=== PATIENT | male | born 1970 | race Two or more races ===

== ENCOUNTER → 2017-03-08 | Outpatient (CLI) | payer BC ==
[~2017-03-08] MED LIST: ASPI81CH43 PO; Atorvastatin Calcium PO; CLOP75TA28 PO; DIC10C PO; DOCU-137 PO; LIS20T PO; MET25T PO
[2017-03-08 12:57] LABS: Albumin 3.6 g/dL (3.4-5.0); BUN/Creatinine Ratio 13.2; Bilirubin, Total 0.6 mg/dL (0.2-1.0); Potassium 4.1 mmol/L (3.5-5.1); Total Protein 7.3 g/dL (6.4-8.2)
== END | disposition home or self-care (01) ==
LOC: LAB 08:34
PROVIDERS: ATTEND Internal Medicine Cardiovascular Disease
DX: E78.00 Pure hypercholesterolemia, unspecified (principal); I10 Essential (primary) hypertension; E11.9 Type 2 diabetes mellitus without complications
CPT/HCPCS: 36415; 80053; 80061; 83036

== ENCOUNTER → 2017-05-08 | Outpatient (CLI) | payer BC ==
[~2017-05-08] VITALS: Ht 175.3 cm; Wt 95.3 kg
== END | disposition home or self-care (01) ==
LOC: Rad HDHVI 07:48
PROVIDERS: ATTEND Internal Medicine Cardiovascular Disease
DX: I25.2 Old myocardial infarction (principal); E78.00 Pure hypercholesterolemia, unspecified; I11.0 Hypertensive heart disease with heart failure; I50.42 Chronic combined systolic (congestive) and diastolic (congestive) heart failure
CPT/HCPCS: 36415; 78452; 83036; 93017; 96374; A9500

== ENCOUNTER → 2017-05-24 | Outpatient (CLI) | payer BC | END | disposition home or self-care (01) | LOC: Rad HDHVI 14:55 | PROVIDERS: ATTEND Internal Medicine Cardiovascular Disease | DX: I21.01 ST elevation (STEMI) myocardial infarction involving left main coronary artery (principal) | CPT/HCPCS: 93306 ==

== ENCOUNTER 2023-01-14 11:37 | Inpatient (IN) | payer SELFPAY ==
[~2023-01-14] VITALS: Ht 175.3 cm; Wt 91.4 kg
[~2023-01-14 11:37] MED LIST changes: -DIC10C PO; +DICY10CA PO; -DOCU-137 PO; +DOCU1CAP46 PO
[2023-01-14 12:23] LABS: Basophils # (auto) 0.1 10 ^3/uL (0-0.2); Basophils % (auto) 0.7 % (0.0-2.0); Eosinophils # (auto) 0.2 10 ^3/uL (0-0.8); Eosinophils % (auto) 3.3 % (0.0-7.0); Hematocrit 43.4 % (41.0-53.0); Hemoglobin 15.2 g/dL (13.5-17.5); Lymphocytes # (auto) 2.3 10 ^3/uL (0.4-5.4); Lymphocytes % (auto) 31.5 % (10.0-50.0); Mean Corpuscular Hemoglobin 31.3 pg (28.0-32.0); Mean Corpuscular Volume 89.5 fL (80.0-100.0); Monocytes # (auto) 0.8 10 ^3/uL (0-1.3); Monocytes % (auto) 10.7 % (0.0-12.0); Neutrophils # (auto) 3.9 10 ^3/uL (1.6-8.6); Neutrophils % (auto) 53.8 % (37.0-80.0); Nucleated Red Blood Cells % 0.4 %; Red Blood Cells 4.85 10^6/uL (4.5-5.90); Red Cell Distribution Width 14.1 % (11.8-14.3); White Blood Cell 7.2 10^3/uL (4.4-10.8)
[2023-01-14 12:41] LABS: INR 0.91 (0.9-1.15); Partial Thromboplastin Time 27.3 sec (24.6-33.4)
[2023-01-14] MEDS ORDERED: ASPirin 81 mg TAB PO ONE (12:45)
[2023-01-14 12:58] LABS: Potassium 3.9 mmol/L (3.5-5.1)
[2023-01-14 13:12] LABS: Albumin 3.2 g/dL (3.4-5.0); Bilirubin, Total 0.8 mg/dL (0.2-1.0); Calcium 9.2 mg/dL (8.5-10.1); Total Protein 7.1 g/dL (6.4-8.2)
[2023-01-14] MEDS ORDERED: ACETAMINOPHEN 325 MG TAB PO PRN (13:30)
[2023-01-14] MEDS ORDERED: ONDANSETRON HCL 4 MG/2 ML VIAL IV PRN (13:30)
[2023-01-14] MEDS ORDERED: DEXTROSE (50%) 50ML SYRG IV PRN (13:30)
[2023-01-14] MEDS ORDERED: MORPHINE SULFATE INJ 2 MG/ml SYRG IV PRN (13:30)
[2023-01-14] MEDS ORDERED: NITROGLYCERIN 0.4 MG SL TAB SL PRN (13:30)
[2023-01-14] MEDS: SODIUM CHLORIDE 0.9% 1,000 ML IV SCH (14:43)
[2023-01-14] MEDS ORDERED: CLOPIDOGREL BISULFATE 75 MG TAB PO ONE (14:45)
[2023-01-14] MEDS: ACCU-CHEK COMFORT CURVE STRIP VI SCH ×2 (17:33→22:00)
[2023-01-14] MEDS: InsuLIN REG 1unit/0.01ml Soln (100units/ml) SC SCH ×2 (17:34→23:48)
[2023-01-14 19:07] LABS: Urine Bacteria FEW /hpf (None Seen); Urine Blood 1+ /uL (Negative); Urine Mucus FEW (None Seen); Urine Specific Gravity 1.021 (1.001-1.035); Urine WBC 25 /hpf (0 - 3)
[2023-01-14 19:26] LABS: Alcohol, Urine < 3.0 mg/dL (0-10); Amphetamine Screen, Urine NEGATIVE (NEGATIVE); Barbiturate Scree,Urine NEGATIVE (NEGATIVE); Benzodiazephine Screen, Urine NEGATIVE (NEGATIVE); Cannabinoid Screen, Urine NEGATIVE (NEGATIVE); Cocaine Screen, Urine NEGATIVE (NEGATIVE); Opiate Scree,Urine NEGATIVE (NEGATIVE); Phencyclidine Screen, Urine NEGATIVE (NEGATIVE)
[2023-01-14] MEDS ORDERED: cloNIDine HCL 0.1 MG TAB PO ONE (21:30)
[2023-01-14] MEDS ORDERED: LABETALOL HCL 5 MG/ML 4ML SYRINGE IV PRN (21:30)
[2023-01-14 22:07] LABS: Cholesterol 322 mg/dL (< 200); HDL Cholesterol 46 mg/dL (40-59); LDL Cholesterol 236 mg/dL (< 100); Triglycerides 222 mg/dL (< 150)
[2023-01-14 22:31] VITALS: BP 177/107
[2023-01-14 22:52] VITALS: BP 168/105
[2023-01-14] MEDS: ATORVASTATIN 20 MG TAB PO SCH (23:42)
[2023-01-15] MEDS: SODIUM CHLORIDE 0.9% 1,000 ML IV SCH ×3 (00:15→20:15)
[2023-01-15] MEDS ORDERED: METF-371 PO (01:01)
[2023-01-15 05:00] VITALS: BP 162/95
[2023-01-15 06:03] LABS: Basophils # (auto) 0 10 ^3/uL (0-0.2); Basophils % (auto) 0.7 % (0.0-2.0); Eosinophils # (auto) 0.3 10 ^3/uL (0-0.8); Eosinophils % (auto) 5.2 % (0.0-7.0); Hematocrit 40.3 % (41.0-53.0); Hemoglobin 14.2 g/dL (13.5-17.5); Lymphocytes # (auto) 2.3 10 ^3/uL (0.4-5.4); Lymphocytes % (auto) 35.4 % (10.0-50.0); Mean Corpuscular Hemoglobin 31.5 pg (28.0-32.0); Mean Corpuscular Hgb Conc. 35.4 g/dL (32.0-36.0); Mean Corpuscular Volume 89.2 fL (80.0-100.0); Monocytes # (auto) 0.8 10 ^3/uL (0-1.3); Monocytes % (auto) 12.7 % (0.0-12.0); Red Blood Cells 4.51 10^6/uL (4.5-5.90); Red Cell Distribution Width 14.1 % (11.8-14.3); White Blood Cell 6.4 10^3/uL (4.4-10.8)
[2023-01-15 06:08] LABS: Potassium 3.5 mmol/L (3.5-5.1)
[2023-01-15 06:16] LABS: Albumin 2.7 g/dL (3.4-5.0); BUN/Creatinine Ratio 17.9 (10.0-20.0); Bilirubin, Total 0.8 mg/dL (0.2-1.0); Calcium 8.8 mg/dL (8.5-10.1); Total Protein 6.2 g/dL (6.4-8.2)
[2023-01-15] MEDS: InsuLIN REG 1unit/0.01ml Soln (100units/ml) SC SCH ×4 (06:31→22:00)
[2023-01-15] MEDS: ACCU-CHEK COMFORT CURVE STRIP VI SCH ×4 (06:49→22:15)
[2023-01-15 08:00] VITALS: BP 151/91
[2023-01-15] MEDS ORDERED: CLOPIDOGREL BISULFATE 75 MG TAB PO SCH (10:00)
[2023-01-15] MEDS: CLOPIDOGREL BISULFATE 75 MG TAB PO SCH (11:03)
[2023-01-15] MEDS: ASPirin 81 mg TAB PO SCH (11:03)
[2023-01-15 12:00] VITALS: BP 156/97
[2023-01-15] MEDS: FOLIC ACID 1 MG, MULTIPLE VITAMIN 10 ML, MAGNESIUM SULF SDV 50% 8 MEQ, THIAMINE INJ 100... INJ SCH ×5 (13:30)
[2023-01-15 16:00] VITALS: BP 129/89
[2023-01-15] MEDS: ATORVASTATIN 20 MG TAB PO SCH (21:07)
[2023-01-15 22:00] VITALS: BP 161/90
[2023-01-16 05:00] VITALS: BP 167/109
[2023-01-16] MEDS: ACETAMINOPHEN 325 MG TAB PO PRN (05:06)
[2023-01-16] MEDS ORDERED: cloNIDine HCL 0.1 MG TAB PO ONE (05:45)
[2023-01-16] MEDS: SODIUM CHLORIDE 0.9% 1,000 ML IV SCH ×3 (06:10→23:51)
[2023-01-16] MEDS: ACCU-CHEK COMFORT CURVE STRIP VI SCH ×4 (06:10→22:41)
[2023-01-16] MEDS: InsuLIN REG 1unit/0.01ml Soln (100units/ml) SC SCH ×4 (06:11→22:39)
[2023-01-16 09:00] VITALS: BP 148/86
[2023-01-16] MEDS: CLOPIDOGREL BISULFATE 75 MG TAB PO SCH (09:52)
[2023-01-16] MEDS: ASPirin 81 mg TAB PO SCH (09:52)
[2023-01-16] MEDS: cloNIDine HCL 0.1 MG TAB PO PRN ×3 (11:32→23:47)
[2023-01-16 13:00] VITALS: BP 185/109
[2023-01-16] MEDS: FOLIC ACID 1 MG, MULTIPLE VITAMIN 10 ML, MAGNESIUM SULF SDV 50% 8 MEQ, THIAMINE INJ 100... INJ SCH ×5 (14:51)
[2023-01-16] MEDS ORDERED: METOPROLOL TARTRATE 25 MG TAB PO ONE (15:15)
[2023-01-16 17:00] VITALS: BP 186/109
[2023-01-16 22:00] VITALS: BP 171/94
[2023-01-16] MEDS: ATORVASTATIN 20 MG TAB PO SCH (22:37)
[2023-01-16] MEDS: METOPROLOL TARTRATE 25 MG TAB PO SCH (22:39)
[2023-01-17] VITALS (10 sets, daily range): BP systolic 122–163; BP diastolic 74–96
[2023-01-17] MEDS: InsuLIN REG 1unit/0.01ml Soln (100units/ml) SC SCH ×4 (06:00→22:06)
[2023-01-17] MEDS: ACCU-CHEK COMFORT CURVE STRIP VI SCH ×4 (06:01→21:58)
[2023-01-17 06:16] LABS: Basophils # (auto) 0 10 ^3/uL (0-0.2); Basophils % (auto) 0.7 % (0.0-2.0); Eosinophils # (auto) 0.3 10 ^3/uL (0-0.8); Eosinophils % (auto) 5.4 % (0.0-7.0); Hematocrit 38.5 % (41.0-53.0); Hemoglobin 13.6 g/dL (13.5-17.5); Lymphocytes # (auto) 2.3 10 ^3/uL (0.4-5.4); Lymphocytes % (auto) 35.8 % (10.0-50.0); Mean Corpuscular Hemoglobin 31.9 pg (28.0-32.0); Mean Corpuscular Hgb Conc. 35.3 g/dL (32.0-36.0); Mean Corpuscular Volume 90.4 fL (80.0-100.0); Monocytes # (auto) 0.9 10 ^3/uL (0-1.3); Monocytes % (auto) 13.6 % (0.0-12.0); Neutrophils # (auto) 2.9 10 ^3/uL (1.6-8.6); Neutrophils % (auto) 44.5 % (37.0-80.0); Nucleated Red Blood Cells % 0.1 %; Red Blood Cells 4.25 10^6/uL (4.5-5.90); Red Cell Distribution Width 14.3 % (11.8-14.3); White Blood Cell 6.4 10^3/uL (4.4-10.8)
[2023-01-17 06:17] LABS: INR 0.9 (0.9-1.15); Partial Thromboplastin Time 27.1 sec (24.6-33.4)
[2023-01-17 06:43] LABS: Calcium 9.1 mg/dL (8.5-10.1); Potassium 3.7 mmol/L (3.5-5.1)
[2023-01-17] MEDS: CLOPIDOGREL BISULFATE 75 MG TAB PO SCH (10:00)
[2023-01-17] MEDS: ASPirin 81 mg TAB PO SCH (10:00)
[2023-01-17] MEDS: METOPROLOL TARTRATE 25 MG TAB PO SCH ×2 (10:00→21:58)
[2023-01-17] MEDS: SODIUM CHLORIDE 0.9% 1,000 ML IV SCH ×2 (12:15→21:58)
[2023-01-17] MEDS: FOLIC ACID 1 MG, MULTIPLE VITAMIN 10 ML, MAGNESIUM SULF SDV 50% 8 MEQ, THIAMINE INJ 100... INJ SCH ×5 (12:54)
[2023-01-17] MEDS ORDERED: LIDOCAINE VISCOUS 2% 15ML UD MT ONE (14:30)
[2023-01-17] MEDS ORDERED: MIDAZOLAM HCL 2MG/2ML 2ml VIAL (1mg/ml) IV ONE (14:30)
[2023-01-17] MEDS ORDERED: fentaNYL CITRATE 100 MCG/2 ML VL IV ONE (14:30)
[2023-01-17] MEDS ORDERED: MIDAZOLAM HCL 2MG/2ML 2ml VIAL (1mg/ml) ONE (14:52)
[2023-01-17] MEDS ORDERED: LIDOCAINE VISCOUS 2% 15ML UD ONE (14:54)
[2023-01-17] MEDS: cloNIDine HCL 0.1 MG TAB PO PRN (17:37)
[2023-01-17] MEDS: ATORVASTATIN 20 MG TAB PO SCH (21:45)
[2023-01-18 05:00] VITALS: BP 156/92
[2023-01-18] MEDS: InsuLIN REG 1unit/0.01ml Soln (100units/ml) SC SCH ×4 (06:07→22:06)
[2023-01-18] MEDS: ACCU-CHEK COMFORT CURVE STRIP VI SCH ×4 (06:07→22:06)
[2023-01-18 07:50] VITALS: BP 160/97
[2023-01-18] MEDS: SODIUM CHLORIDE 0.9% 1,000 ML IV SCH ×2 (08:15→18:15)
[2023-01-18] MEDS: ASPirin 81 mg TAB PO SCH (09:50)
[2023-01-18] MEDS: CLOPIDOGREL BISULFATE 75 MG TAB PO SCH (09:50)
[2023-01-18] MEDS: METOPROLOL TARTRATE 25 MG TAB PO SCH ×2 (10:00→22:02)
[2023-01-18] MEDS: cloNIDine HCL 0.1 MG TAB PO PRN (10:40)
[2023-01-18 12:30] VITALS: BP 139/88
[2023-01-18] MEDS: FOLIC ACID 1 MG, MULTIPLE VITAMIN 10 ML, MAGNESIUM SULF SDV 50% 8 MEQ, THIAMINE INJ 100... INJ SCH ×5 (13:16)
[2023-01-18 16:25] VITALS: BP 123/87
[2023-01-18 22:00] VITALS: BP 142/84
[2023-01-18] MEDS: ATORVASTATIN 20 MG TAB PO SCH (22:01)
[2023-01-19] MEDS: cloNIDine HCL 0.1 MG TAB PO PRN (04:12)
[2023-01-19] MEDS: SODIUM CHLORIDE 0.9% 1,000 ML IV SCH ×3 (04:15→21:38)
[2023-01-19 05:00] VITALS: BP 160/88
[2023-01-19] MEDS: InsuLIN REG 1unit/0.01ml Soln (100units/ml) SC SCH ×4 (06:00→21:32)
[2023-01-19] MEDS: ACCU-CHEK COMFORT CURVE STRIP VI SCH ×4 (06:01→21:32)
[2023-01-19] MEDS: CLOPIDOGREL BISULFATE 75 MG TAB PO SCH (09:00)
[2023-01-19] MEDS: ASPirin 81 mg TAB PO SCH (09:00)
[2023-01-19] MEDS: METOPROLOL TARTRATE 25 MG TAB PO SCH ×3 (09:01→22:31)
[2023-01-19 09:09] VITALS: BP 169/105
[2023-01-19 12:45] VITALS: BP 112/58
[2023-01-19] MEDS: FOLIC ACID 1 MG, MULTIPLE VITAMIN 10 ML, MAGNESIUM SULF SDV 50% 8 MEQ, THIAMINE INJ 100... INJ SCH ×5 (13:51)
[2023-01-19 17:24] VITALS: BP 157/98
[2023-01-19] MEDS: ATORVASTATIN 20 MG TAB PO SCH (21:30)
[2023-01-19 22:00] VITALS: BP 117/88
[2023-01-20 05:00] VITALS: BP 156/83
[2023-01-20] MEDS: InsuLIN REG 1unit/0.01ml Soln (100units/ml) SC SCH ×4 (06:55→21:40)
[2023-01-20] MEDS: ACCU-CHEK COMFORT CURVE STRIP VI SCH ×4 (06:56→21:40)
[2023-01-20 08:00] VITALS: BP 142/93
[2023-01-20] MEDS ORDERED: METOPROLOL TARTRATE 25 MG TAB PO ONE (10:45)
[2023-01-20] MEDS: ASPirin 81 mg TAB PO SCH (10:49)
[2023-01-20] MEDS: CLOPIDOGREL BISULFATE 75 MG TAB PO SCH (10:49)
[2023-01-20] MEDS: SODIUM CHLORIDE 0.9% 1,000 ML IV SCH ×2 (10:50→20:15)
[2023-01-20 12:00] VITALS: BP 164/91
[2023-01-20] MEDS: ACETAMINOPHEN 325 MG TAB PO PRN (12:11)
[2023-01-20] MEDS: cloNIDine HCL 0.1 MG TAB PO PRN ×2 (12:12→18:20)
[2023-01-20] MEDS ORDERED: LACTULOSE 20Gm/30ML SOLN PO ONE (13:15)
[2023-01-20 16:00] VITALS: BP 173/102
[2023-01-20] MEDS: FOLIC ACID 1 MG, MULTIPLE VITAMIN 10 ML, MAGNESIUM SULF SDV 50% 8 MEQ, THIAMINE INJ 100... INJ SCH ×5 (16:12)
[2023-01-20] MEDS: METOPROLOL TARTRATE 25 MG TAB PO SCH (21:35)
[2023-01-20] MEDS: ATORVASTATIN 20 MG TAB PO SCH (21:35)
[2023-01-20 22:00] VITALS: BP 148/83
[2023-01-21 05:00] VITALS: BP 152/90
[2023-01-21] MEDS: ACCU-CHEK COMFORT CURVE STRIP VI SCH ×2 (06:17→11:30)
[2023-01-21] MEDS: InsuLIN REG 1unit/0.01ml Soln (100units/ml) SC SCH ×2 (06:17→11:30)
[2023-01-21] MEDS: SODIUM CHLORIDE 0.9% 1,000 ML IV SCH (07:05)
[2023-01-21 09:00] VITALS: BP 174/97
[2023-01-21] MEDS: cloNIDine HCL 0.1 MG TAB PO PRN (09:03)
[2023-01-21] MEDS: ASPirin 81 mg TAB PO SCH (10:01)
[2023-01-21] MEDS: CLOPIDOGREL BISULFATE 75 MG TAB PO SCH (10:02)
[2023-01-21] MEDS: METOPROLOL TARTRATE 25 MG TAB PO SCH (10:02)
[2023-01-21] MEDS ORDERED: METO-158 PO (10:39)
[2023-01-21] MEDS ORDERED: NIFE1TAB36 PO (10:39)
[2023-01-21] MEDS ORDERED: CLOP75TA28 PO (10:39)
[2023-01-21] MEDS ORDERED: ATO40T PO (10:39)
[2023-01-21] MEDS ORDERED: ASPI-463 PO (10:39)
[2023-01-21] MEDS ORDERED: THIA100T13 PO (10:48)
[2023-01-21] MEDS ORDERED: FOLI1TAB6 PO (10:48)
[2023-01-21] MEDS: FOLIC ACID 1 MG, MULTIPLE VITAMIN 10 ML, MAGNESIUM SULF SDV 50% 8 MEQ, THIAMINE INJ 100... INJ SCH ×5 (12:00)
[2023-01-21 12:14] VITALS: BP 162/99
[2023-01-21 12:18] VITALS: BP 162/99
== END 2023-01-21 13:55 | disposition home or self-care (01) | DRG 65 ==
LOC: ER 11:37 → TELE 14:08 → TELE-EAST 21:44
PROVIDERS: ADMIT Nurse Practitioner Family; ATTEND Family Medicine
PROC: 5A09357 Assistance with Respiratory Ventilation, Less than 24 Consecutive Hours, Continuous Positive Airway Pressure (ICD-10-PCS; principal; 2023-01-14)
PROC: B246ZZ4 Ultrasonography of Right and Left Heart, Transesophageal (ICD-10-PCS; 2023-01-17)
DX: I63.9 Cerebral infarction, unspecified (principal); G81.94 Hemiplegia, unspecified affecting left nondominant side; I50.32 Chronic diastolic (congestive) heart failure; E78.5 Hyperlipidemia, unspecified; E11.65 Type 2 diabetes mellitus with hyperglycemia; E66.9 Obesity, unspecified; F10.129 Alcohol abuse with intoxication, unspecified; F12.10 Cannabis abuse, uncomplicated; G47.10 Hypersomnia, unspecified; E78.00 Pure hypercholesterolemia, unspecified; I11.0 Hypertensive heart disease with heart failure; I25.10 Atherosclerotic heart disease of native coronary artery without angina pectoris; I16.0 Hypertensive urgency; K59.00 Constipation, unspecified; Z79.84 Long term (current) use of oral hypoglycemic drugs; Z79.899 Other long term (current) drug therapy; Z82.49 Family history of ischemic heart disease and other diseases of the circulatory system; I25.2 Old myocardial infarction; Z83.3 Family history of diabetes mellitus; Z91.199 Patient's noncompliance with other medical treatment and regimen due to unspecified reason; Z95.5 Presence of coronary angioplasty implant and graft; Z68.28 Body mass index [BMI] 28.0-28.9, adult
CPT/HCPCS: 36415; 70450; 70551; 71045; 80048; 80053; 80061; 80307; 81001; 82962; 83036; 84443; 85025; 85610; 85730; 86850; 86900; 86901; 93005; 93306; 93312; 93886; 94660; 97110; 97116; 97163; 97530; 99152; G0378; J1815; J2250; J2405

== ENCOUNTER 2023-01-22 20:10 | Emergency (ER) | payer BC, OTHER ==
[~2023-01-22] VITALS: Ht 175.3 cm; Wt 86.4 kg
[~2023-01-22 20:10] MED LIST changes: +ASPI-463 PO; -ASPI81CH43 PO; +ATO40T PO; -Atorvastatin Calcium PO; -DICY10CA PO; -DOCU1CAP46 PO; +FOLI1TAB6 PO; -LIS20T PO; -MET25T PO; +METF-371 PO; +METO-158 PO; +NIFE1TAB36 PO; +THIA100T13 PO
[2023-01-22 20:20] VITALS: BP 103/57
[2023-01-22 20:53] LABS: Basophils # (auto) 0 10 ^3/uL (0-0.2); Basophils % (auto) 0.5 % (0.0-2.0); Eosinophils # (auto) 0.3 10 ^3/uL (0-0.8); Eosinophils % (auto) 2.7 % (0.0-7.0); Hematocrit 44.2 % (41.0-53.0); Lymphocytes # (auto) 2.6 10 ^3/uL (0.4-5.4); Lymphocytes % (auto) 24.9 % (10.0-50.0); Monocytes # (auto) 1.1 10 ^3/uL (0-1.3); Monocytes % (auto) 10.5 % (0.0-12.0); Neutrophils # (auto) 6.3 10 ^3/uL (1.6-8.6); Neutrophils % (auto) 61.4 % (37.0-80.0); Red Blood Cells 4.85 10^6/uL (4.5-5.90); Red Cell Distribution Width 14.2 % (11.8-14.3); White Blood Cell 10.3 10^3/uL (4.4-10.8)
[2023-01-22 21:34] LABS: Albumin 3.3 g/dL (3.4-5.0); BUN/Creatinine Ratio 14.9 (10.0-20.0); Bilirubin, Total 0.6 mg/dL (0.2-1.0); Calcium 8.6 mg/dL (8.5-10.1); Potassium 4.1 mmol/L (3.5-5.1); Total Protein 7.6 g/dL (6.4-8.2)
== END 2023-01-23 02:55 | disposition left against medical advice (07) ==
LOC: ER 20:13
DX: R42 Dizziness and giddiness (principal); R53.1 Weakness; I10 Essential (primary) hypertension; I25.2 Old myocardial infarction; E11.9 Type 2 diabetes mellitus without complications; E78.5 Hyperlipidemia, unspecified; Z86.73 Personal history of transient ischemic attack (TIA), and cerebral infarction without residual deficits; Z79.82 Long term (current) use of aspirin; Z79.01 Long term (current) use of anticoagulants; Z79.899 Other long term (current) drug therapy
CPT/HCPCS: 36415; 70450; 71045; 80053; 84484; 85025; 93005

== ENCOUNTER 2024-06-19 17:07 | Inpatient (IN) | payer MEDICAID, OTHER ==
[~2024-06-19] VITALS: Ht 175.3 cm; Wt 91.5 kg
[~2024-06-19 17:07] MED LIST changes: -ATO40T PO; +ATOR-507 PO; +FOLI-119 PO; -FOLI1TAB6 PO
[2024-06-19 19:04] LABS: Basophils # (auto) 0.1 10 ^3/uL (0-0.2); Basophils % (auto) 0.9 % (0.0-2.0); Eosinophils # (auto) 0.3 10 ^3/uL (0-0.8); Eosinophils % (auto) 3.2 % (0.0-7.0); Hematocrit 42.4 % (41.0-53.0); Hemoglobin 14.5 g/dL (13.5-17.5); Lymphocytes # (auto) 1.9 10 ^3/uL (0.4-5.4); Lymphocytes % (auto) 20.7 % (10.0-50.0); Mean Corpuscular Hemoglobin 31.5 pg (28.0-32.0); Mean Corpuscular Hgb Conc. 34.2 g/dL (32.0-36.0); Monocytes # (auto) 0.9 10 ^3/uL (0-1.3); Monocytes % (auto) 9.2 % (0.0-12.0); Neutrophils # (auto) 6.1 10 ^3/uL (1.6-8.6); Platelet Count (auto) 319 10^3/uL (140-450); Red Blood Cells 4.61 10^6/uL (4.5-5.90); Red Cell Distribution Width 14.9 % (11.8-14.3); White Blood Cell 9.3 10^3/uL (4.4-10.8)
[2024-06-19 19:18] LABS: Alanine Aminotransferase 20 U/L (7-40); Albumin 3.6 g/dL (3.2-4.8); Alkaline Phosphatase 89 U/L (46-116); Anion Gap 5 (5-15); Aspartate Aminotransferase 28 U/L (13-40); BUN/Creatinine Ratio 10.8 (10.0-20.0); Blood Urea Nitrogen 30 mg/dL (9-23); Carbon Dioxide 26 mmol/L (20-31); Chloride 104 mmol/L (98-107); Glucose 191 mg/dL (74-106); Potassium 5.2 mmol/L (3.5-5.1); Sodium 135 mmol/L (136-145)
[2024-06-19 19:19] LABS: Bilirubin, Total 0.6 mg/dL (0.2-1.0); Total Protein 6.4 g/dL (5.7-8.2)
[2024-06-19] MEDS: hydrALAZINE HCL 20 MG/ML VL IV ONE (19:41)
[2024-06-19] MEDS: ONDANSETRON HCL 4 MG/2 ML VIAL IV ONE (19:41)
[2024-06-19 19:42] VITALS: PULSE 66; RESP 16; O2SAT 98
[2024-06-19 20:22] LABS: Urine Bacteria None Seen /hpf (None Seen)
[2024-06-19 20:47] LABS: Urine Blood 1+ /uL (Negative); Urine Clarity Clear (Clear); Urine Color Light-Yellow (Yellow); Urine Hyaline Cast MOD /lpf (0 - 2); Urine Mucus FEW (None Seen); Urine Protein, UAD 3+ (Negative); Urine Specific Gravity 1.018 (1.001-1.035); Urine Urobilinogen Normal (Negative); Urine WBC 2 /hpf (0 - 3); Urine pH 6.5 (5.0-9.0)
[2024-06-19] MEDS ORDERED: HYDROcodone-ACET 5/325MG TAB PO PRN (22:30)
[2024-06-19] MEDS ORDERED: ACETAMINOPHEN 325 MG TAB PO PRN (22:30)
[2024-06-19] MEDS ORDERED: DEXTROSE (50%) 50ML SYRG IV PRN (22:30)
[2024-06-19] MEDS ORDERED: DOCUSATE SOD 100 MG CAP PO PRN (22:30)
[2024-06-19] MEDS ORDERED: ONDANSETRON HCL 4 MG/2 ML VIAL IV PRN (22:30)
[2024-06-19] MEDS: SODIUM ZIRCONIUM CYCL 10 GM PAK PO ONE (22:46)
[2024-06-19] MEDS: LABETALOL HCL 20 MG/4 ML VL IV ONE (22:48)
[2024-06-19] MEDS: SODIUM CHLORIDE 0.9% 1,000 ML IV SCH (22:55)
[2024-06-19] MEDS: amLODIPine BESYLATE 5 MG TAB PO ONE (22:55)
[2024-06-19] MEDS ORDERED: NITROGLYCERIN 0.4 MG SL TAB SL PRN (23:15)
[2024-06-19] MEDS ORDERED: MORPHINE SULFATE INJ 2 MG/ml SYRG IV PRN (23:15)
[2024-06-20] VITALS (7 sets, daily range): BP systolic 145–151; BP diastolic 78–92; PULSE 76–89; RESP 16–18; TEMP 97.7–98.4; O2SAT 96–98
[2024-06-20] MEDS: hydrALAZINE HCL 20 MG/ML VL IV PRN (03:48)
[2024-06-20] MEDS: InsuLIN REG 1unit/0.01ml Soln (100units/ml) SC SCH (05:41)
[2024-06-20] MEDS: ACCU-CHEK COMFORT CURVE STRIP VI SCH (05:41)
[2024-06-20] MEDS ORDERED: ALBU108A5 INH (06:09)
[2024-06-20 07:15] LABS: Basophils # (auto) 0.1 10 ^3/uL (0-0.2); Basophils % (auto) 0.8 % (0.0-2.0); Eosinophils # (auto) 0.4 10 ^3/uL (0-0.8); Eosinophils % (auto) 3.8 % (0.0-7.0); Hematocrit 39.1 % (41.0-53.0); Hemoglobin 13.4 g/dL (13.5-17.5); Lymphocytes # (auto) 2.8 10 ^3/uL (0.4-5.4); Mean Corpuscular Hemoglobin 31.6 pg (28.0-32.0); Mean Corpuscular Hgb Conc. 34.3 g/dL (32.0-36.0); Mean Corpuscular Volume 92.3 fL (80.0-100.0); Monocytes # (auto) 1.2 10 ^3/uL (0-1.3); Neutrophils # (auto) 5.8 10 ^3/uL (1.6-8.6); Neutrophils % (auto) 56.4 % (37.0-80.0); Nucleated Red Blood Cells % 0.2 %; Platelet Count (auto) 316 10^3/uL (140-450); Red Blood Cells 4.23 10^6/uL (4.5-5.90); White Blood Cell 10.3 10^3/uL (4.4-10.8)
[2024-06-20 07:33] LABS: Alanine Aminotransferase 14 U/L (7-40); Albumin 3.4 g/dL (3.2-4.8); Alkaline Phosphatase 70 U/L (46-116); Anion Gap 8 (5-15); Aspartate Aminotransferase 20 U/L (13-40); BUN/Creatinine Ratio 10.3 (10.0-20.0); Bilirubin, Total 0.5 mg/dL (0.2-1.0); Blood Urea Nitrogen 28 mg/dL (9-23); Calcium 8.9 mg/dL (8.7-10.4); Carbon Dioxide 23 mmol/L (20-31); Chloride 105 mmol/L (98-107); Glucose 118 mg/dL (74-106); Potassium 4.3 mmol/L (3.5-5.1); Sodium 136 mmol/L (136-145); Total Protein 6.3 g/dL (5.7-8.2)
[2024-06-20] MEDS: METOPROLOL TARTRATE 25 MG TAB PO SCH (09:56)
[2024-06-20] MEDS: CLOPIDOGREL BISULFATE 75 MG TAB PO SCH (09:56)
[2024-06-20] MEDS: ASPirin 81 mg TAB PO SCH (09:57)
[2024-06-20] MEDS: amLODIPine BESYLATE 5 MG TAB PO SCH (09:57)
[2024-06-20] MEDS: NIFEdipine ER 30 MG TAB PO ONE (12:18)
[2024-06-20] MEDS ORDERED: NIFE1TAB36 PO (12:47)
[2024-06-20] MEDS ORDERED: METO25TA5 PO (12:47)
[2024-06-20] MEDS ORDERED: ATOR20TA50 PO (12:47)
[2024-06-20] MEDS ORDERED: InsuLIN REG 1unit/0.01ml Soln (100units/ml) SC SCH (22:00)
[2024-06-20] MEDS ORDERED: ATORVASTATIN 20 MG TAB PO SCH (22:00)
== END 2024-06-20 17:55 | disposition home or self-care (01) | DRG 199 ==
LOC: ER 17:07 → TELE 23:05 → TELE-WESTW 06-20 03:12
PROVIDERS: ADMIT Nurse Practitioner Family; ATTEND Nurse Practitioner Family
DX: I16.1 Hypertensive emergency (principal); N17.9 Acute kidney failure, unspecified; E11.22 Type 2 diabetes mellitus with diabetic chronic kidney disease; E11.65 Type 2 diabetes mellitus with hyperglycemia; E66.9 Obesity, unspecified; I12.9 Hypertensive chronic kidney disease with stage 1 through stage 4 chronic kidney disease, or unspecified chronic kidney disease; N18.32 Chronic kidney disease, stage 3b; E87.5 Hyperkalemia; E78.5 Hyperlipidemia, unspecified; Z86.73 Personal history of transient ischemic attack (TIA), and cerebral infarction without residual deficits; Z91.199 Patient's noncompliance with other medical treatment and regimen due to unspecified reason; Z82.0 Family history of epilepsy and other diseases of the nervous system; Z81.8 Family history of other mental and behavioral disorders; Z68.29 Body mass index [BMI] 29.0-29.9, adult
CPT/HCPCS: 36415; 70450; 71045; 80053; 81001; 82962; 83880; 84484; 85025; 93005; 96374; 96375; 99291; G0378; J1815; J2405

== ENCOUNTER 2024-07-04 06:39 | Inpatient (IN) | payer MEDICAID ==
[2024-07-04] VITALS (7 sets, daily range): BP systolic 145–167; BP diastolic 75–96; PULSE 78–91; RESP 16–20; TEMP 97.8–98.1; O2SAT 93–98
[~2024-07-04] VITALS: Ht 175.3 cm; Wt 99.6 kg
[~2024-07-04 06:39] MED LIST changes: +ALBU108A5 INH; -ATOR-507 PO; +ATOR20TA50 PO; +CLOP75TA70 PO; +ERGO500086 PO; -FOLI-119 PO; +HYDR12.59 PO; +METO25TA5 PO; -THIA100T13 PO
[2024-07-04 07:10] LABS: Basophils # (auto) 0.2 10 ^3/uL (0-0.2); Basophils % (auto) 1.8 % (0.0-2.0); Eosinophils # (auto) 0.8 10 ^3/uL (0-0.8); Eosinophils % (auto) 8.5 % (0.0-7.0); Hematocrit 36.4 % (41.0-53.0); Hemoglobin 12.5 g/dL (13.5-17.5); Lymphocytes # (auto) 2.7 10 ^3/uL (0.4-5.4); Lymphocytes % (auto) 27.5 % (10.0-50.0); Mean Corpuscular Hemoglobin 31.2 pg (28.0-32.0); Mean Corpuscular Hgb Conc. 34.3 g/dL (32.0-36.0); Mean Corpuscular Volume 91.1 fL (80.0-100.0); Monocytes # (auto) 1.2 10 ^3/uL (0-1.3); Monocytes % (auto) 11.8 % (0.0-12.0); Neutrophils % (auto) 50.4 % (37.0-80.0); Platelet Count (auto) 333 10^3/uL (140-450); Red Cell Distribution Width 14.7 % (11.8-14.3); White Blood Cell 9.9 10^3/uL (4.4-10.8)
[2024-07-04 07:28] LABS: Alanine Aminotransferase 36 U/L (7-40); Albumin 3.9 g/dL (3.2-4.8); Alkaline Phosphatase 118 U/L (46-116); Anion Gap 8 (5-15); Aspartate Aminotransferase 29 U/L (13-40); BUN/Creatinine Ratio 11.6 (10.0-20.0); Bilirubin, Total 0.3 mg/dL (0.2-1.0); Blood Urea Nitrogen 40 mg/dL (9-23); Carbon Dioxide 23 mmol/L (20-31); Chloride 107 mmol/L (98-107); Glucose 133 mg/dL (74-106); Potassium 4.8 mmol/L (3.5-5.1); Sodium 138 mmol/L (136-145)
--- NOTE | 2024-07-04 07:33 | DVH ---
CHEST RADIOGRAPH Indication:CHEST PAIN Technique: Single frontal view of the chest was obtained Comparison: XY CHEST PORTABLE on DOS: 06/19/24 FINDINGS: Lines and Tubes: None Lungs: Lungs are hypoinflated. Bilateral interstitial prominence. Pleura: No effusion. No pneumothorax. Cardiomediastinal contours: Stable. Bones: No acute osseous abnormality. IMPRESSION: 1. Hypoinflated lungs. There may be a component of pulmonary congestion.
[2024-07-04] MEDS: SODIUM CHLORIDE 0.9% 1,000 ML IV ONE (08:19)
--- NOTE | 2024-07-04 08:21 | ED.PDOC ---
HPI Comments 53y M who presents to the ED for chief complaint of chest pain. Pt states he woke up this AM with chest pain and dizziness. Pt states after getting out of bed, he felt dizzy and fell face forward on carpet floor in his bedroom. Pt family heard noise and went to check and saw pt on the floor. Pt states he did not have any associated loss of consciousness but states he told family he did not feel well and told his family to take him to the ED for further evaluation. Pt now in the ED, is alert and oriented x 4 and able to answer all questions. Pt states he is still having chest pain, rating the pain 5/10, substernal, non- radiating, with no noted exacerbating or relieving factors. Pt states he feels pain by area where recent cardiac stent was placed. Pt otherwise has noted history of VA, CVA on Plavix, HTN, hyperlipidemia, DM and asthma. Pt otherwise denies any other symptoms at this time. Chief Complaint: Chest Pain Time Seen by MD: 08:18 Primary Care Provider: NONE Reviewed Notes: Medications, Allergies Allergies: Coded Allergies: NO KNOWN ALLERGIES (Unverified , 04/30/16) Home Meds Active Scripts Nifedipine (Nifedipine ER) 30 Mg Tab, 30 MG PO DAILY for 30 Days, #30 TAB 3 Refills Prov:ILYA DAY DO 06/20/24 Metoprolol Tartrate (Metoprolol Tartrate) 25 Mg Tab, 2 TAB PO BID for 30 Days, #120 TAB 1 Refill Prov:ILYA DAY DO 06/20/24 Atorvastatin Calcium (ATORVASTATIN CALCIUM) 20 Mg Tab, 20 MG PO HS for 30 Days, #30 TAB 3 Refills Prov:ILYA DAY DO 06/20/24 Metoprolol Tartrate (Metoprolol Tartrate) 50 Mg Tab, 50 MG PO BID, #180 TAB Prov:JONATHAN ALBERT MD 01/21/23 Clopidogrel Bisulfate (Plavix) 75 Mg Tab, 1 TAB PO DAILY, #90 TAB 1 Refill Prov:JONATHAN ALBERT MD 01/21/23 Aspirin (ASPIRIN/ENTERIC) 81 Mg Tab, 81 MG PO DAILY, #90 TAB Prov:JONATHAN ALBERT MD 01/21/23 Reported Medications Albuterol Sulfate (Albuterol Sulfate Hfa) 108 Mcg/Act Aer, 2 PUFF INH 06/20/24 Metformin Hydrochloride (Metformin Hcl) 850 Mg Tab, 850 MG PO BID for 30 Days, MG 01/15/23 Information Source: Patient, Spouse Mode of Arrival: Ambulatory Brought in by: spouse Past Medical History PAST MEDICAL HISTORY: CVA, DM, High Lipids, HTN, VA Surgical History: PTCA Family History Family History: Reviewed,noncontributory to illness, Family hx of DM, Family hx of HTN Social History Smoker: Non-Smoker Alcohol: Occasionally Drugs: Marijuana Lives In: Home Constitutional: denies: chills, diaphoresis, fatigue, fever, malaise, sweats, weakness, others EENTM: denies: blurred vision, double vision, ear bleeding, ear discharge, ear drainage, ear pain, ear ringing, eye pain, eye redness, hearing loss, mouth pain, mouth swelling, nasal discharge, nose bleeding, nose congestion, nose pain, photophobia, tearing, throat pain, throat swelling, voice changes, others Respiratory: reports: shortness of breath; denies: cough, hemoptysis, orthopnea, SOB at rest, SOB with excertion, stridor, wheezing, others Cardiovascular: reports: chest pain; denies: dizzy spells, diaphoresis, Dyspnea on exertion, edema, irregular heart beat, left arm pain, lightheadedness, palpitations, PND, syncope, others Gastrointestinal: denies: abdomen distended, abdominal pain, blood streaked bowels, constipated, diarrhea, dysphagia, difficulty swallowing, hematemesis, melena, nausea, poor appetite, poor fluid intake, rectal bleeding, rectal pain, vomiting, others Genitourinary: denies: burning, dysuria, flank pain, frequency, hematuria, incontinence, penile discharge, penile sore, pain, testicle pain, testicle swelling, urgency, others Neurological: denies: dizziness, fainting, headache, left sided numbness, left sided weakness, numbness, paresthesia, pre-existing deficit, right sided numbness, right sided weakness, seizure, speech problems, tingling, tremors, weakness, others Musculoskeletal: denies: back pain, gout, joint pain, joint swelling, muscle pain, muscle stiffness, neck pain, others Integumetry: denies: bruises, change in color, change in hair/nails, dryness, laceration, lesions, lumps, rash, wounds, others Allergic/Immunocompromised: denies: Difficulty Healing, Frequent Infections, Hives, Itching, others Hematologic/Lymphatic: denies: anemia, blood clots, easy bleeding, easy bruising, swollen glands, others Endocrine: denies: excessive hunger, excessive sweating, excessive thirst, excessive urination, flushing, intolerance to cold, intolerance to heat, unexplained weight gain, unexplained weight loss, others Psychiatric: denies: anxiety, bipolar disorder, depression, hopeless, panic disorder, schizophrenia, sleepless, suicidal, others All Other Systems: Reviewed and Negative Physical Exam General Appearance: Mild Distress, Moderate Distress, Obese HEENT: Normal ENT Inspection, PERRL/EOMI Neck: Full Range of Motion, Non-Tender Respiratory: Crackles, Decreased Breath Sounds, Expiration, Inspiration, No Respiratory Distress, Rhonchi Cardiovascular: No Edema, No JVD, No Murmur, No Gallop, Normal Peripheral Pulses, Regular Rate/Rhythm Breast Exam: Deferred Gastrointestinal: No Organomegaly, Non Tender, No Pulsatile Mass, Normal Bowel Sounds, Soft, Other (Obesity) Genitalia: Deferred Pelvic: Deferred Rectal: Deferred Extremities: No calf tenderness, Normal capillary refill, Normal inspection, Normal range of motion, Non-tender, No pedal edema Neurologic: Alert, licensed audiologist II-XII nml as Tested, No Motor Deficits, Normal Affect, Normal Mood, No Sensory Deficits, Other (Patient has no signs of any neurological impairment or injuries at this time he did fall possibly with a syncopal episode) Cerebellar Function: Normal Reflexes: Normal Skin: Dry, Normal Color, Warm Peripheral Pulses: 1+ carotid (R), 1+ carotid (L) Lymphatic: No Adenopathy EKG EKG : Pulse Rate (adult): 82 Mobile: LAD, Normal ST: Lat, Nonsp Was a procedure done? Was a procedure done?: No CP Differential Dx Differential Diagnosis: Angina, Anxiety / Panic Attack, Atrial Dysrhythmia, Electrolyte Disorder, Heart Failure, VA, Pulmonary Embolus, PVC's, Renal Failure Other Differential Diagnosis acute coronary syndrome, closed head injury, Differential Diagnosis: CHF, HTN Essential Differential Diagnosis: Angina, Chest Wall Pain, Costochondritis, Esophageal reflux/spasm, Myocardial Infarction, Pneumonia, Pulmonary Embolus X-Ray, Labs, Meds, VS Vital Signs Date Time Temp Pulse Resp B/P (MAP) Pulse Ox O2 Delivery O2 Flow Rate FiO2 07/04/24 13:21 96 Nasal Cannula* 2 28 07/04/24 12:00 73 14 167/96 (119) 96 07/04/24 12:00 73 07/04/24 10:32 74 13 154/93 (113) 96 07/04/24 10:32 154/93 07/04/24 09:39 173/104 07/04/24 09:03 86 18 173/104 (127) 94 07/04/24 08:27 82 07/04/24 08:00 85 07/04/24 07:49 97.9 84 16 154/90 (111) 95 97.9 07/04/24 07:49 84 16 96 Nasal Cannula* 2 07/04/24 07:42 83 07/04/24 07:00 82 07/04/24 06:42 97.4 86 16 154/87 (109) 97 Lab Test 07/04/24 12:20 07/04/24 09:40 07/04/24 07:40 07/04/24 06:50 Range/Units Urine Color Light-yellow Yellow Urine Clarity Clear Clear Urine pH 6.0 5.0-9.0 Urine Specific [place] 1.012 1.001-1.035 Urine Protein 3+ H Negative Urine Ketones Negative Negative Urine Blood 1+ H Negative /uL Urine Nitrite Negative Negative Urine Bilirubin Negative Negative Urine Urobilinogen Normal Negative mg/dL Urine Leukocyte Esterase Negative Negative /uL Urine RBC 13 0 - 3 /hpf Urine WBC 4 0 - 3 /hpf Urine Squamous Epithelial Cells None seen <5 /hpf Urine Bacteria Mod H None Seen /hpf Urine Glucose 2+ H Normal mg/dL Troponin I High Sensitivity 10 11 10 </=54 ng/L White Blood Count 9.9 4.4-10.8 10^3/uL Red Blood Count 4.00 L 4.5-5.90 10^6/uL Hemoglobin 12.5 L 13.5-17.5 g/dL Hematocrit 36.4 L 41.0-53.0 % Mean Corpuscular Volume 91.1 80.0-100.0 fL Mean Corpuscular Hemoglobin 31.2 28.0-32.0 pg Mean Corpuscular Hemoglobin Concent 34.3 32.0-36.0 g/dL Red Cell Distribution Width 14.7 H 11.8-14.3 % Platelet Count 333 140-450 10^3/uL Mean Platelet Volume 8.3 6.9-10.8 fL Neutrophils (%) (Auto) 50.4 37.0-80.0 % Lymphocytes (%) (Auto) 27.5 10.0-50.0 % Monocytes (%) (Auto) 11.8 0.0-12.0 % Eosinophils (%) (Auto) 8.5 H 0.0-7.0 % Basophils (%) (Auto) 1.8 0.0-2.0 % Neutrophils # (Auto) 5.0 1.6-8.6 10 ^3/uL Lymphocytes # (Auto) 2.7 0.4-5.4 10 ^3/uL Monocytes # (Auto) 1.2 0-1.3 10 ^3/uL Eosinophils # (Auto) 0.8 0-0.8 10 ^3/uL Basophils # (Auto) 0.2 0-0.2 10 ^3/uL Nucleated Red Blood Cells 0.0 % Prothrombin Time 10.1 9.3-11.8 sec Prothrombin Time INR 0.95 0.9-1.15 Activated Partial Thromboplast Time 28.2 24.5-34.5 SEC D-Dimer, Quantitative 3.73 H 0.0-0.49 mg/L FEU Sodium Level 138 136-145 mmol/L Potassium Level 4.8 3.5-5.1 mmol/L Chloride Level 107 98-107 mmol/L Carbon Dioxide Level 23 20-31 mmol/L Anion Gap 8 5-15 Blood Urea Nitrogen 40 H 9-23 mg/dL Creatinine 3.44 H 0.700-1.30 mg/dL Glomerular Filtration Rate Calc 21 >90 mL/min BUN/Creatinine Ratio 11.6 10.0-20.0 Serum Glucose 133 H 74-106 mg/dL Calcium Level 9.0 8.7-10.4 mg/dL Magnesium Level 2.1 1.6-2.6 mg/dL Total Bilirubin 0.3 0.2-1.0 mg/dL Aspartate Amino Transferase (AST) 29 13-40 U/L Alanine Aminotransferase (ALT) 36 7-40 U/L Alkaline Phosphatase 118 H 46-116 U/L B-Type Natriuretic Peptide 126.29 0-100 pg/mL Total Protein 7.0 5.7-8.2 g/dL Albumin 3.9 3.2-4.8 g/dL Thyroid Stimulating Hormone (TSH) 2.53 0.55-4.78 uIU/mL Test 07/04/24 06:48 Range/Units POC Glucose 116 H 70-106 mg/dl Current Medications Medications (Trade) Dose Ordered Sig/Tai Route Start Time Stop Time Status Last Admin Aspirin 162 mg ONCE ONCE PO 07/04/24 08:15 07/04/24 08:16 DC 07/04/24 08:22 Clonidine HCl (Catapres Tablet) 0.1 mg ONCE ONCE PO 07/04/24 09:45 07/04/24 09:46 DC 07/04/24 09:39 [place] [id number] Ph: [phone] DIAGNOSTIC IMAGING Diagnostic Imaging Report : [id number] Signed PATIENT: Alex MAY JEFFSUSACCT: [id number] UNIT: [id number] : 1970 LOC: ER ROOM / BED: / AGE / SEX: 53 / M ADM STATUS: REG ER SERVICE 7 ORDERING PHYSICIAN: PAPO SANCHEZ MD PROCEDURE(s): CXRP - CHEST PORTABLE REASON: CHEST PAIN ORDER NUMBER(s): [id number], ACCESSION NUMBER(s): [id number] CHEST RADIOGRAPH Indication:CHEST PAIN Technique: Single frontal view of the chest was obtained Comparison: XY CHEST PORTABLE on DOS: 06/19/24 FINDINGS: Lines and Tubes: None Lungs: Lungs are hypoinflated. Bilateral interstitial prominence. Pleura: No effusion. No pneumothorax. Cardiomediastinal contours: Stable. Bones: No acute osseous abnormality. IMPRESSION: 1. Hypoinflated lungs. There may be a component of pulmonary congestion. ATED BY: MARVIN ROMEO MD DICTATED DATE/TIME: 07/04/24729 SIGNED BY: MARVIN ROMEO MD SIGNED DATE/TIME: 07/04/24729 CC: X-Ray, Labs, Meds, VS Comment Course in the emergency department eventful patient came in complaining of chest pain shortness of breath dizziness with possible near-syncope Chest x-ray shows pulmonary vascular congestion EKG shows normal sinus rhythm at 82 with nonspecific T-waves in the inferior leads CBC is negative CMP GFR of 21 with a blood sugar of 133 Troponin 10 and 11 INR 0.95 D-dimer 3.73 Magnesium 2.1 BNP 126.29 TSH 2.53 Patient will be admitted for further care Time of 1ST Reevaluation: 08:50 Reevaluation 1ST: Unchanged Patient Education/Counseling: Diagnosis, Treatment, Prognosis Family Education/Counseling: Diagnosis, Treatment, Prognosis Departure 1 Departure Time of Disposition: 10:31 Impression: Primary Impression: Chest pain Additional Impressions: Pulmonary vascular congestion Renal insufficiency Elevated d-dimer History of heart artery stent History of COPD History of CVA (cerebrovascular accident) Ruled Out: Pneumonia Disposition: ADMITTED INPATIENT Admit to: Tele Condition: Serious Critical Care Note Critical Care Time?: No Stability Stability form required: Yes Unstable for transfer: Telemetry monitoring (Telemetry monitoring required), Requires medication (Requires Med for stabilization) Heart Score Heart Score: Heart Score Response (Comments) Value History Moderate Suspicious 1 EKG Normal 0 Age 45-64 1 Risk Factors >3 or Hx ASHD 2 Troponin Normal limit 0 Total 4 I personally scribed for PAPO SANCHEZ MD ([email or web address]) on 07/04/24 at 08:21. Electronically submitted by Tony Ugalde ([email or web address]). PAPO SANCHEZ MD Jul 04, 2024 08:21
[2024-07-04] MEDS: ASPirin 81 mg TAB PO ONE (08:22)
[2024-07-04 09:04] LABS: INR 0.95 (0.9-1.15); Partial Thromboplastin Time 28.2 SEC (24.5-34.5); Prothrombin Time 10.1 sec (9.3-11.8)
[2024-07-04] MEDS: cloNIDine HCL 0.1 MG TAB PO ONE (09:39)
[2024-07-04 12:42] LABS: Urine Bacteria MOD /hpf (None Seen); Urine Blood 1+ /uL (Negative); Urine Clarity Clear (Clear); Urine Color Light-Yellow (Yellow); Urine Protein, UAD 3+ (Negative); Urine Specific Gravity 1.012 (1.001-1.035); Urine Urobilinogen Normal (Negative); Urine WBC 4 /hpf (0 - 3)
[2024-07-04] MEDS: LABETALOL HCL 20 MG/4 ML VL IV ONE (13:43)
[2024-07-04] MEDS ORDERED: ALBUTEROL SULF 2.5 MG/0.5ML(0.5%) NEB SOLN NEB PRN (14:00)
[2024-07-04] MEDS ORDERED: NITROGLYCERIN 0.4 MG SL TAB SL PRN (14:00)
[2024-07-04] MEDS ORDERED: IPRATROPIUM BROM 0.5 MG/2.5ML INH SOL NEB PRN (14:00)
[2024-07-04] MEDS: IPRATROPIUM BROM 0.5 MG/2.5ML INH SOL NEB ONE (14:09)
[2024-07-04] MEDS: ALBUTEROL SULF 2.5 MG/0.5ML(0.5%) NEB SOLN NEB ONE (14:09)
[2024-07-04] MEDS: ALBUTEROL SULF 2.5 MG/0.5ML(0.5%) NEB SOLN ONE (14:17)
--- NOTE | 2024-07-04 14:17 | DVHHP2 ---
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 Patient states she was shortness of the breath slowly got worse as time with by but in the last 3-4 days he has been having some chest pain with the shortness of the breath. He states he has been so short of breath that even when he sleep in his truck inte rnal in his side his chest pain no shortness with the breath got worse. Patient did see his primary doctor Saturday with a [facility] feels that he states. According to the ED records patient has had a syncopal episode this morning. Patient states he sat up then he lost consciousness he fell face forward he did have loss of consciousness in his but he did not hit his head. Patient states he lost cardiac follow up care due to loss of his insurance. When evaluating patient's labs and imaging white count was normal CBC was unremarkable troponin was negative creatinine has up trended from last discharge June 20, 2024 it was 2.73 now is 3.44 glucose was 133 D-dimer was elevated. Patient also had an echocardiogram last one was January 19, 2023 EF was 40%. Patient's chest x-ray shows pulmonary congestion. With these findings we will admit patient ask for Cardiology evaluation and workup for congestive heart failure Past Medical History Hypertension asthma diabetes COPD hyperlipidemia LA in 2015 with a stent placement stroke in January of 2024 Past Surgical History Stent placement in 2016 x1 Family History Reviewed, non-contributory to the management of this case. Past Social History The patient lives at home, denies smoking, alcohol or illicit drugs abuse. Review of Systems Constitutional: No: Fever, Chills, Sweats, Weakness, Malaise, Other Eyes: No: Pain, Vision change, Conjunctivae inflammation, Eyelid inflammation, Other, Redness ENT: No: Ear pain, Ear discharge, Nose pain, Nose discharge, Nose congestion, Mouth pain, Mouth swelling, Throat pain, Throat swelling, Other Respiratory: Shortness of breath, SOB with excertion; No: Cough, Dry, Wheezing, Hemoptysis, Pleuritic Pain, Sputum, Wheezing, Other Cardiovascular: Chest Pain; No: Palpitations, Orthopnea, Paroxysmal Noc. Dyspnea, Edema, Lt Headedness, Other Gastrointestinal: No: Nausea, Vomiting, Abdominal Pain, Diarrhea, Constipation, Melena, Hematochezia, Other Genitourinary: No Dysuria, No Frequency, No Incontinence, No Hematuria, No R etention, No Other Musculoskeletal: No: other, neck pain, shoulder pain, arm pain, back pain, hand pain, leg pain, foot pain Skin: No: Rash, Lesions, Jaundice, Bruising, Other Neurological: No: Weakness, Numbness, Incoordination, Change in speech, Confusion, Seizures, Other Allergies: Coded Allergies: NO KNOWN ALLERGIES (Unverified , 04/30/16) Exam Vital Signs Vital Signs Date Time Temp Pulse Resp B/P (MAP) Pulse Ox O2 Delivery O2 Flow Rate FiO2 07/04/24 13:43 80 180/104 07/04/24 13:21 96 Nasal Cannula* 2 28 07/04/24 12:00 14 07/04/24 07:49 97.9 97.9 General Appearance: Alert, Oriented X3, Cooperative, No acute distress HEENT: Atraumatic, PERRLA, EOMI, Mucous membr. moist/pink Respiratory: Clear to auscultation, Normal air movement Cardiovascular: Regular rate, Normal S1, Normal S2, No murmurs Abdominal: Normal bowel sounds, Soft, No tenderness, No hepatospenomegaly, No masses Extremities: No clubbing, No cyanosis, No edema, Normal pulses, No tenderness/swelling Skin: No rashes, No breakdown, No significant lesion Neuro: Normal gait, Normal speech, Strength at 5/5 X4 ext, Normal tone, Sensation intact, Cranial nerves 3-12 NL Psych/Mental Status: Mental status NL, Mood NL Labs/Xrays Chest x-ray shows pulmonary congestion I reviewed labs, imaging CT scan abdomen pelvis, EKG and all diagnostic studies on this patient from ED records and the medical chart Labs Test 07/04/24 12:20 07/04/24 09:40 07/04/24 06:50 07/04/24 06:48 Range/Units Urine Color Light-yellow Yellow Urine Clarity Clear Clear Urine pH 6.0 5.0-9.0 Urine Specific [place] 1.012 1.001-1.035 Urine Protein 3+ H Negative Urine Ketones Negative Negative Urine Blood 1+ H Negative /uL Urine Nitrite Negative Negative Urine Bilirubin Negative Negative Urine Urobilinogen Normal Negative mg/dL Urine Leukocyte Esterase Negative Negative /uL Urine RBC 13 0 - 3 /hpf Urine WBC 4 0 - 3 /hpf Urine Squamous Epithelial Cells None seen <5 /hpf Urine Bacteria Mod H None Seen /hpf Urine Glucose 2+ H Normal mg/dL Troponin I High Sensitivity 10 </=54 ng/L White Blood Count 9.9 4.4-10.8 10^3/uL Red Blood Count 4.00 L 4.5-5.90 10^6/uL Hemoglobin 12.5 L 13.5-17.5 g/dL Hematocrit 36.4 L 41.0-53.0 % Mean Corpuscular Volume 91.1 80.0-100.0 fL Mean Corpuscular Hemoglobin 31.2 28.0-32.0 pg Mean Corpuscular Hemoglobin Concent 34.3 32.0-36.0 g/dL Red Cell Distribution Width 14.7 H 11.8-14.3 % Platelet Count 333 140-450 10^3/uL Mean Platelet Volume 8.3 6.9-10.8 fL Neutrophils (%) (Auto) 50.4 37.0-80.0 % Lymphocytes (%) (Auto) 27.5 10.0-50.0 % Monocytes (%) (Auto) 11.8 0.0-12.0 % Eosinophils (%) (Auto) 8.5 H 0.0-7.0 % Basophils (%) (Auto) 1.8 0.0-2.0 % Neutrophils # (Auto) 5.0 1.6-8.6 10 ^3/uL Lymphocytes # (Auto) 2.7 0.4-5.4 10 ^3/uL Monocytes # (Auto) 1.2 0-1.3 10 ^3/uL Eosinophils # (Auto) 0.8 0-0.8 10 ^3/uL Basophils # (Auto) 0.2 0-0.2 10 ^3/uL Nucleated Red Blood Cells 0.0 % Prothrombin Time 10.1 9.3-11.8 sec Prothrombin Time INR 0.95 0.9-1.15 Activated Partial Thromboplast Time 28.2 24.5-34.5 SEC D-Dimer, Quantitative 3.73 H 0.0-0.49 mg/L FEU Sodium Level 138 136-145 mmol/L Potassium Level 4.8 3.5-5.1 mmol/L Chloride Level 107 98-107 mmol/L Carbon Dioxide Level 23 20-31 mmol/L Anion Gap 8 5-15 Blood Urea Nitrogen 40 H 9-23 mg/dL Creatinine 3.44 H 0.700-1.30 mg/dL Glomerular Filtration Rate Calc 21 >90 mL/min BUN/Creatinine Ratio 11.6 10.0-20.0 Serum Glucose 133 H 74-106 mg/dL Calcium Level 9.0 8.7-10.4 mg/dL Magnesium Level 2.1 1.6-2.6 mg/dL Total Bilirubin 0.3 0.2-1.0 mg/dL Aspartate Amino Transferase (AST) 29 13-40 U/L Alanine Aminotransferase (ALT) 36 7-40 U/L Alkaline Phosphatase 118 H 46-116 U/L B-Type Natriuretic Peptide 126.29 0-100 pg/mL Total Protein 7.0 5.7-8.2 g/dL Albumin 3.9 3.2-4.8 g/dL Thyroid Stimulating Hormone (TSH) 2.53 0.55-4.78 uIU/mL POC Glucose 116 H 70-106 mg/dl Assessment/Plan Assessment/Plan acute syncope no head trauma an be from hypoxia from heart failure ordered ct scan brain fu results ordered echo fu results ordered carotid us fu results ordered fall precautions ordered orthostatic vs trop negative ekg no stemi acute new onset CHF found on cxr ordered lasix ordered metoprolol ordered strict i/o's ordered echo fu results ordered pt cards DR. 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 chronic hld cont home medication acute ble edema ordered us fu results ordered lovenox acute wes worsening ordered lasix for now ordered renal consult fu results chronic hx of mi with stent placement in 2016 (no cards fu care in 2 yrs) ordered echo ordered cards consult fu results trop negative fen/ppx diet hl lovenox no hx of gerds or gi bleed no gi ppx plan admit to tele cards consult Plan discussed with: Patient, Spouse Date of Service: Jul 04, 2024 Billing Provider: JESSICA TREVINO DNP Common Visit Codes: [id number] CARE 30-74 MIN (Total critical care time: Approximately 45 minutes This critical care time included obtaining a history; examining the patient; pulse oximetry; ordering and review of studies; arranging urgent treatment with development of a management plan; evaluation of patient's response to treatment; frequent reassessment; and, discussions with other providers.) JESSICA TREVINO DNP Jul 04, 2024 14:17
[2024-07-04] MEDS: IPRATROPIUM BROM 0.5 MG/2.5ML INH SOL ONE (14:18)
[2024-07-04] MEDS: FUROSEMIDE 40 MG/4 ML VIAL IV ONE (14:39)
[2024-07-04] MEDS: ENOXAPARIN SOD 100 MG/1 ML SYRINGE SC ONE (14:40)
--- NOTE | 2024-07-04 14:40 | DVH ---
Carotid Duplex Date: 07/04/2024 02:01 PM Clinical History: eval for vascular occlusion Comparison: US CAROTID DUPLX W COLOR DOP on DOS: 01/15/23 Technique: Duplex Doppler evaluation of the extracranial carotid and vertebral arteries including color Doppler and spectral/pulsed waveform analysis was performed. Findings: RIGHT SIDE: The peak systolic velocities are 80.2 cm/s in the distal CCA and 75.8 cm/s in the proximal ICA.The IC A/CCA ratio is less than 1. The external carotid artery is patent with peak systolic velocity of 147.9 cm/s proximally. There is appropriate antegrade flow in the right vertebral artery 55.0 cm/seconds LEFT SIDE: The peak systolic velocities are 92 cm/s in the distal CCA and 81.5 cm/s in the proximal ICA.. The I CA/CCA ratio is less than 1. The external carotid artery is patent with peak systolic velocity of 131.2 cm/s proximally. There is appropriate antegrade flow in the left vertebral artery, 61 cm/s antegrade flow. IMPRESSION: 1. No hemodynamically significant stenosis noted in the right carotid system. 2. No hemodynamically significant stenosis noted in the left carotid system. 3. Reference: Radiology 2003; 229:340-346
--- NOTE | 2024-07-04 16:42 | DVH ---
EXAM: CT HEAD WITHOUT CONTRAST HISTORY: eval for acute syncope COMPARISON: CT HEAD WITHOUT CONTRAST on DOS: 06/19/24 TECHNIQUE: Axial images were obtained and reformatted in coronal and sagittal planes. All CT scans at this medical facility are performed using dose modulation techniques as appropriate t o a performed exam including the following: Automated exposure control was utilized; adjustment of th e MA and/or KV according to patient size; and use of iterative reconstruction technique. CT Dose: CTDI volume is 54.05 mGy. Dose-length product is 866.58 mGy*cm FINDINGS: Supratentorial Region: No evidence for large acute territorial ischemia. No intracranial hemorrhage is noted. Old right thalamic infarcts noted. Posterior Fossa: No acute abnormality. Brainstem: Unremarkable. Sellar/Suprasellar Region: Unremarkable. Ventricles, Cisterns, Sulci: Age-appropriate. Orbits: Unremarkable. Paranasal Sinuses: Unremarkable. Mastoid Air Cells: Unremarkable. Vasculature: Intracranial arterial calcified plaque formation noted. Bones/Soft Tissues: No acute abnormality. Other: None. IMPRESSION: 1. No acute intracranial process.
--- NOTE | 2024-07-04 16:44 | DVH ---
Bilateral lower extremity venous duplex Clinical History: eval for dvt Comparison: None Technique: Duplex Doppler evaluation of the deep venous systems of both lower extremities from the common femora l veins to the popliteal veins including color Doppler and spectral/pulsed waveform analysis was perf ormed. Findings: RIGHT SIDE: The common femoral vein demonstrates appropriate compressibility and waveform variability. There is compressibility/patency of the great saphenous vein at the proximal thigh. The femoral vein demonstrates appropriate compressibility and waveform variability. The deep femoral vein demonstrates appropriate compressibility and waveform variability. The popliteal vein demonstrates appropriate compressibility and waveform variability. There is normal compressibility at the tibioperoneal trunk. LEFT SIDE: The common femoral vein demonstrates appropriate compressibility and waveform variability. There is compressibility/patency of the great saphenous vein at the proximal thigh. The femoral vein demonstrates appropriate compressibility and waveform variability. The deep femoral vein demonstrates appropriate compressibility and waveform variability. The popliteal vein demonstrates appropriate compressibility and waveform variability. There is normal compressibility at the tibioperoneal trunk. Impression: 1. No right or left femoropopliteal venous thrombosis. 2. Bilateral inguinal lymph node noted 3.1 cm on the right and 2.4 cm on the left.
[2024-07-04] MEDS: FUROSEMIDE 40 MG/4 ML VIAL IV SCH (17:39)
[2024-07-04] MEDS: ATORVASTATIN 20 MG TAB PO SCH (21:53)
[2024-07-04] MEDS: METOPROLOL TARTRATE 50 MG TAB PO SCH (21:53)
[2024-07-04] MEDS ORDERED: ATORVASTATIN 20 MG TAB PO SCH (22:00)
[2024-07-05] VITALS (9 sets, daily range): BP systolic 113–170; BP diastolic 77–101; PULSE 58–94; RESP 17–22; TEMP 97.9–98.2; O2SAT 93–99
[2024-07-05] MEDS: cloNIDine HCL 0.1 MG TAB PO PRN (06:02)
[2024-07-05 07:12] LABS: Triglycerides 144 mg/dL (< 150)
[2024-07-05 07:13] LABS: Cholesterol 204 mg/dL (< 200); LDL Cholesterol 142 mg/dL (< 100)
[2024-07-05 07:14] LABS: HDL Cholesterol 39 mg/dL (40-59)
[2024-07-05] MEDS: NIFEdipine ER 30 MG TAB PO SCH (09:51)
[2024-07-05] MEDS: CLOPIDOGREL BISULFATE 75 MG TAB PO SCH (09:51)
[2024-07-05] MEDS: ASPirin-EC 81 mg tab PO SCH (09:52)
[2024-07-05 10:25] LABS: Chloride 108 mmol/L (98-107); Potassium 4.4 mmol/L (3.5-5.1); Sodium 140 mmol/L (136-145)
[2024-07-05 10:26] LABS: Anion Gap 8 (5-15); Carbon Dioxide 24 mmol/L (20-31)
[2024-07-05 10:27] LABS: Calcium 9.1 mg/dL (8.7-10.4)
[2024-07-05 10:29] LABS: Basophils # (auto) 0.1 10 ^3/uL (0-0.2); Eosinophils # (auto) 0.6 10 ^3/uL (0-0.8); Eosinophils % (auto) 6.3 % (0.0-7.0); Hematocrit 35.9 % (41.0-53.0); Hemoglobin 11.8 g/dL (13.5-17.5); Lymphocytes # (auto) 1.9 10 ^3/uL (0.4-5.4); Mean Corpuscular Hemoglobin 30.5 pg (28.0-32.0); Mean Corpuscular Hgb Conc. 32.9 g/dL (32.0-36.0); Mean Corpuscular Volume 92.8 fL (80.0-100.0); Monocytes # (auto) 1.2 10 ^3/uL (0-1.3); Monocytes % (auto) 12.5 % (0.0-12.0); Neutrophils # (auto) 5.6 10 ^3/uL (1.6-8.6); Neutrophils % (auto) 60.2 % (37.0-80.0); Platelet Count (auto) 317 10^3/uL (140-450); Red Blood Cells 3.87 10^6/uL (4.5-5.90); Red Cell Distribution Width 14.6 % (11.8-14.3); White Blood Cell 9.4 10^3/uL (4.4-10.8)
[2024-07-05 10:31] LABS: BUN/Creatinine Ratio 11.7 (10.0-20.0); Blood Urea Nitrogen 39 mg/dL (9-23); Glucose 111 mg/dL (74-106)
[2024-07-05] MEDS: NIFEdipine ER 30 MG TAB PO ONE (12:45)
--- NOTE | 2024-07-05 18:20 | DVHPNRES ---
Progress Note Date Seen: Jul 05, 2024 Resident Creating Document: RENAN POLLOCK RESIDENT Has the PT tested + for MRSA If YES, has PT been informed?: No Medical Necessity Reason Pt with a Central, PICC or Fol: No Subjective Review of Systems This is a 53-year-old male with past medical history of hypertension, type 2 diabetes, COPD, hyperlipidemia, [place], stroke last year in January 20, 2024, s/p stent placement X one in 2016 who presented to the ED with chief complaint of tiredness and fatigue associated with shortness of breaths that has been getting worse in the past few days. Patient states that his oil boiler is Dr. Navarrete. 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 The patient also reported that he has history of heart failure and previous [place] but lost cardiac follow-up due to loss of his insurance. Upon admission, initial labs were showing MARJAN on CKD with a creatinine of 3.44 and BUN of 40. D-dimer was elevated at 3.73, BNP was elevated as well at 1:26 a.m. troponins came back negative and lipid panel was showing hyperlipidemia. Initial chest x-ray was showing mild vascular congestion with very mild cardiomegaly. There is an echocardiogram performed on 2022 which is showing an LVEF of 50%. We ordered a new echocardiogram. Carotid Doppler ultrasound showed no hemodynamic stenosis bilaterally and bilateral lower venous Doppler showed no evidence of DVTs at this time. CT scan of the head without contrast also showed no acute intracranial process. We will admit the patient for further assessment and management. Patient seen and examined at bedside. Patient still complains of mild shortness of breath and very mild chest discomfort which has improved compared to admission. Echocardiogram was performed at bedside but still pending official report. The patient was started on furosemide 40 mg IV b.i.d. we also ordered a V/Q scan to rule out pulmonary embolism since CT angio of the chest with contrast we will worsens kidney function and creatinine today was 3.44. We will continue the patient on aspirin 81 mg q.d. and clopidogrel 75 mg q.d.. We gave nifedipine 60 mg q.d. today because blood pressure was in the higher side. Once official report of echocardiogram comes back we will readjust blood pressure/heart failure medications. ROS Constitutional: Denies weight loss, fever and chills. HEENT: Denies changes in vision and hearing. Respiratory: Reports mild shortness of breath and denies cough Cardiovascular: Denies chest discomfort or palpitations GI: Denies abdominal pain, nausea, vomiting and diarrhea. : Denies dysuria and urinary frequency. Musculoskeletal: Denies myalgias and joint pain Skin: Denies rash and pruritus. Neurological: Denies dizziness, headache, vision or hearing problems Objective vital signs Vital Sign Date Time Temp Pulse Resp B/P (MAP) Pulse Ox O2 Delivery O2 Flow Rate FiO2 07/05/24 17:58 160/84 07/05/24 17:20 98.1 67 18 97 98.1 07/05/24 08:00 Nasal Cannula* 2 28 Total Intake and Output 07/04/24 07/04/24 07/05/24 15:00 23:00 07:00 Intake Total 0 ml 480 ml Output Total 0 ml 800 ml Balance 0 ml -320 ml medications Current Medications Medications Dose Ordered Sig/Tai Route Start Time Stop Time Status Last Admin Dose Admin Aspirin 81 mg DAILY PO 07/05/24 10:00 07/05/24 09:52 81 MG Atorvastatin Calcium 20 mg HS PO 07/04/24 22:00 UNV Clopidogrel Bisulfate 75 mg DAILY PO 07/05/24 10:00 07/05/24 09:51 75 MG Metoprolol Tartrate 50 mg BID PO 07/04/24 22:00 07/05/24 09:52 50 MG Nifedipine 30 mg DAILY PO 07/05/24 10:00 07/05/24 09:51 30 MG Furosemide 40 mg BIDD IV 07/04/24 18:00 07/05/24 17:57 40 MG Albuterol 2.5 mg Q4HPRN PRN NEB 07/04/24 14:00 Ipratropium [place] 0.5 mg Q4HPRN PRN NEB 07/04/24 14:00 Atorvastatin Calcium 20 mg HS PO 07/04/24 22:00 07/04/24 21:53 20 MG Nitroglycerin 0.4 mg Q5MINP PRN SL 07/04/24 14:00 Clonidine HCl 0.1 mg Q4HPRN PRN PO 07/05/24 04:45 07/05/24 17:58 0.1 MG Examination Physical Examination General: Patient alert and oriented in person, place and time. Patient following commands. HEENT: Normocephalic, atraumatic, moist mucous membranes Respiratory/pulmonary: There are crackles auscultated on bilateral lung bases but no wheezes at this time Cardiovascular: Normal regular heart sounds S1 and S2 with no associated murmurs Abdomen: Abdomen nondistended, there is no pain to palpation in any of the abdominal quadrants, no palpable masses. Extremities: There is 1+ pitting edema on bilateral lower extremities. Peripheral Pulses: 3+ Radial (R). 3+ Radial (L). 3+ Dorsalis pedis (R). 3+ Dorsalis pedis(L) Skin: No rashes or pruritus, there is no sacral edema present at this time. Neurological: Intact cranial nerves with no focal neurologic deficits laboratory and microbiology Laboratory Tests 07/05/24 05:53 Test 07/05/24 05:53 Range/Units Serum Glucose 111 H 74-106 mg/dL Microbiology Date/Time Source Procedure Growth Status 07/04/24 17:28 Nose MRSA Screen - Final Complete Problem List/Assessment/Plan Problem List/Assessment/Plan Assessment/Plan Acute hypoxic respiratory failure likely due to acute on chronic systolic/diastolic heart failure -initial chest x-ray showed mild pulmonary vascular congestion with mild cardiomegaly -BNP was slightly elevated at 126.2 -last echocardiogram performed on 2022 showed an LVEF of 50%. We ordered a new echocardiogram which was already performed but waiting for official reports -start furosemide 40 mg IV b.i.d. -D-dimer was elevated at 3.73 -continue metoprolol tartrate 50 mg b.i.d. -continue nifedipine 30 mg q.d. 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 -clonidine 0.1 mg p.r.n. -metoprolol tartrate 50 mg b.i.d. -start furosemide 40 mg IV b.i.d. -monitor blood pressure closely Dyslipidemia -continue atorvastatin 20 mg q.p.m. Type 2 diabetes mellitus -ordered hemoglobin A1c -last blood glucose was 133 -monitor blood glucose, no need of insulin at this time History of stroke and [place], s/p stent placement in 2016 -continue aspirin 81 mg q.d. -continue clopidogrel 75 mg q.d. -continue atorvastatin 20 mg q.d. Goals of care discussed with the patient at bedside for >23min, FULL CODE Plan discussed with Dr. Leiva Plan discussed with: Patient (Plan discussed with the patient at bedside which agreed and understood.) My Orders My Orders Orders - RENAN POLLOCK Procedure Category Date Status Time Nm Vq Scan NM 07/05/24 Logged 14:03 Date of Service: Jul 05, 2024 Billing Provider: SHU LEIVA MD Common Visit Codes: [id number] INP/OBS CARE(HIGH) Secondary Visit Codes: [id number] CARE PLAN 30 MINUTES RENAN POLLOCK RESIDENT Jul 05, 2024 18:19 SHU LEIVA MD Jul 06, 2024 21:49
[2024-07-06] VITALS (11 sets, daily range): BP systolic 98–157; BP diastolic 54–91; PULSE 54–80; RESP 16–18; TEMP 97.3–98.6; O2SAT 94–99
[2024-07-06 06:43] LABS: Basophils # (auto) 0.1 10 ^3/uL (0-0.2); Basophils % (auto) 1.1 % (0.0-2.0); Eosinophils # (auto) 0.8 10 ^3/uL (0-0.8); Eosinophils % (auto) 8.8 % (0.0-7.0); Hematocrit 36.1 % (41.0-53.0); Lymphocytes # (auto) 2.3 10 ^3/uL (0.4-5.4); Lymphocytes % (auto) 27.2 % (10.0-50.0); Mean Corpuscular Hemoglobin 30.5 pg (28.0-32.0); Mean Corpuscular Hgb Conc. 33.1 g/dL (32.0-36.0); Mean Corpuscular Volume 91.9 fL (80.0-100.0); Monocytes # (auto) 1.1 10 ^3/uL (0-1.3); Monocytes % (auto) 12.4 % (0.0-12.0); Neutrophils # (auto) 4.3 10 ^3/uL (1.6-8.6); Neutrophils % (auto) 50.5 % (37.0-80.0); Platelet Count (auto) 282 10^3/uL (140-450); Red Blood Cells 3.93 10^6/uL (4.5-5.90); Red Cell Distribution Width 14.6 % (11.8-14.3); White Blood Cell 8.6 10^3/uL (4.4-10.8)
[2024-07-06 06:52] LABS: Anion Gap 6 (5-15); Calcium 8.9 mg/dL (8.7-10.4); Carbon Dioxide 27 mmol/L (20-31); Chloride 104 mmol/L (98-107); Potassium 4.1 mmol/L (3.5-5.1); Sodium 137 mmol/L (136-145)
[2024-07-06 06:58] LABS: BUN/Creatinine Ratio 11.6 (10.0-20.0); Blood Urea Nitrogen 38 mg/dL (9-23); Glucose 117 mg/dL (74-106)
--- NOTE | 2024-07-06 09:22 | DVHPN2 ---
Progress Note - Dictate Date Seen: Jul 05, 2024 Has the PT tested + for MRSA If YES, has PT been informed?: No Medical Necessity Reason Pt with a Central, PICC or Fol: No Subjective PT WITH SS COMPLEX OF SOB ELLER LETHARGY EPISODES OF CP PMH: DIABETES NEPHROPATHY CKD STAGE IV VASCULOPATHY HTN HYPERLIPIDEMIA ORGANIC HD CAD HX OF MN EF < 45% HX OF CVA vital signs Vital Sign Date Time Temp Pulse Resp B/P (MAP) Pulse Ox O2 Delivery O2 Flow Rate FiO2 07/06/24 06:22 99 Nasal Cannula 2.0 07/06/24 06:22 28 07/06/24 05:35 157/91 07/06/24 05:00 98.3 70 18 98.3 Total Intake and Output 07/05/24 07/05/24 07/06/24 15:00 23:00 07:00 Intake Total 490 ml 150 ml Output Total 700 ml 500 ml Balance -210 ml -350 ml medications Current Medications Medications Dose Ordered Sig/Tai Route Start Time Stop Time Status Last Admin Dose Admin Aspirin 81 mg DAILY PO 07/05/24 10:00 07/05/24 09:52 81 MG Atorvastatin Calcium 20 mg HS PO 07/04/24 22:00 UNV Clopidogrel Bisulfate 75 mg DAILY PO 07/05/24 10:00 07/05/24 09:51 75 MG Metoprolol Tartrate 50 mg BID PO 07/04/24 22:00 07/05/24 21:26 50 MG Nifedipine 30 mg DAILY PO 07/05/24 10:00 07/05/24 09:51 30 MG Furosemide 40 mg BIDD IV 07/04/24 18:00 07/06/24 05:35 40 MG Albuterol 2.5 mg Q4HPRN PRN NEB 07/04/24 14:00 Ipratropium [place] 0.5 mg Q4HPRN PRN NEB 07/04/24 14:00 Atorvastatin Calcium 20 mg HS PO 07/04/24 22:00 07/05/24 21:25 20 MG Nitroglycerin 0.4 mg Q5MINP PRN SL 07/04/24 14:00 Clonidine HCl 0.1 mg Q4HPRN PRN PO 07/05/24 04:45 07/05/24 17:58 0.1 MG laboratory and microbiology Laboratory Tests 07/06/24 06:04 Test 07/06/24 06:04 Range/Units Serum Glucose 117 H 74-106 mg/dL Problem List S COMPLEX OF SOB ELLER LETHARGY EPISODES OF CP PMH: DIABETES VASCULOPATHY NEPHROPATHY CKD STAGE IV HTN HYPERLIPIDEMIA ORGANIC HD CAD HX OF MN EF < 45% HX OF CVA Assessment/Plan ELEVATED CREATININE WITH NL BNP INHALER THERAPY ECHO STRESS CARDIOLITE WILL DEFER ANGIO SECONDARY TO RENAL FAILURE NEPHROLOGY CONSULT Plan discussed with: Patient RAISA BALL MD Jul 06, 2024 09:22
--- NOTE | 2024-07-06 10:50 | ECG ---
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
--- NOTE | 2024-07-06 14:44 | DVHPNRES ---
Progress Note Date Seen: Jul 06, 2024 Resident Creating Document: RENAN POLLOCK RESIDENT Has the PT tested + for MRSA If YES, has PT been informed?: No Medical Necessity Reason Pt with a Central, PICC or Fol: No Subjective Review of Systems This is a 53-year-old male with past medical history of hypertension, type 2 diabetes, COPD, hyperlipidemia, [place], stroke last year in January 20, 2024, s/p stent placement X one in 2016 who presented to the ED with chief complaint of tiredness and fatigue associated with shortness of breaths that has been getting worse in the past few days. Patient states that his white hat hacker is Dr. Navarrete. 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 The patient also reported that he has history of heart failure and previous [place] but lost cardiac follow-up due to loss of his insurance. Upon admission, initial labs were showing MARJAN on CKD with a creatinine of 3.44 and BUN of 40. D-dimer was elevated at 3.73, BNP was elevated as well at 1:26 a.m. troponins came back negative and lipid panel was showing hyperlipidemia. Initial chest x-ray was showing mild vascular congestion with very mild cardiomegaly. There is an echocardiogram performed on 2022 which is showing an LVEF of 50%. We ordered a new echocardiogram. Carotid Doppler ultrasound showed no hemodynamic stenosis bilaterally and bilateral lower venous Doppler showed no evidence of DVTs at this time. CT scan of the head without contrast also showed no acute intracranial process. We will admit the patient for further assessment and management. Patient seen and examined at bedside. Patient denies shortness of breath, chest pain or any other complaints and states that he is feeling well overall. Today V/Q scan was performed we are still waiting for official report. Echocardiogram also was performed but there is no official reports yet. Singing Teacher assessed the patient and determine that the patient needs Cardiolite stress test. We will continue current medical management and monitor MARJAN on CKD through kidney function. Nephrology was consulted. ROS Constitutional: Denies weight loss, fever and chills. HEENT: Denies changes in vision and hearing. Respiratory: Denies shortness of breath and cough Cardiovascular: Denies chest discomfort or palpitations GI: Denies abdominal pain, nausea, vomiting and diarrhea. : Denies dysuria and urinary frequency. Musculoskeletal: Denies myalgias and joint pain Skin: Denies rash and pruritus. Neurological: Denies dizziness, headache, vision or hearing problems Objective vital signs Vital Sign Date Time Temp Pulse Resp B/P (MAP) Pulse Ox O2 Delivery O2 Flow Rate FiO2 07/06/24 11:25 168/89 07/06/24 11:00 70 07/06/24 09:59 98.4 18 96 98.4 07/06/24 08:00 Room Air* 0 21 Total Intake and Output 07/05/24 07/05/24 07/06/24 15:00 23:00 07:00 Intake Total 490 ml 150 ml Output Total 700 ml 500 ml Balance -210 ml -350 ml medications Current Medications Medications Dose Ordered Sig/Tai Route Start Time Stop Time Status Last Admin Dose Admin Aspirin 81 mg DAILY PO 07/05/24 10:00 07/06/24 09:59 81 MG Atorvastatin Calcium 20 mg HS PO 07/04/24 22:00 UNV Clopidogrel Bisulfate 75 mg DAILY PO 07/05/24 10:00 07/06/24 09:59 75 MG Metoprolol Tartrate 50 mg BID PO 07/04/24 22:00 07/06/24 10:00 50 MG Nifedipine 30 mg DAILY PO 07/05/24 10:00 07/06/24 10:00 30 MG Furosemide 40 mg BIDD IV 07/04/24 18:00 07/06/24 05:35 40 MG Albuterol 2.5 mg Q4HPRN PRN NEB 07/04/24 14:00 Ipratropium [place] 0.5 mg Q4HPRN PRN NEB 07/04/24 14:00 Atorvastatin Calcium 20 mg HS PO 07/04/24 22:00 07/05/24 21:25 20 MG Nitroglycerin 0.4 mg Q5MINP PRN SL 07/04/24 14:00 Clonidine HCl 0.1 mg Q4HPRN PRN PO 07/05/24 04:45 07/06/24 11:25 0.1 MG Examination Physical Examination General: Patient alert and oriented in person, place and time. Patient following commands. HEENT: Normocephalic, atraumatic, moist mucous membranes Respiratory/pulmonary: Bilateral lung sounds grossly clear but there is still minimal crackles on lung bases. No wheezes at this time. Cardiovascular: Normal regular heart sounds S1 and S2 with no associated murmurs Abdomen: Abdomen nondistended, there is no pain to palpation in any of the abdominal quadrants, no palpable masses. Extremities: There is 1+ pitting edema on bilateral lower extremities. Peripheral Pulses: 3+ Radial (R). 3+ Radial (L). 3+ Dorsalis pedis (R). 3+ Dorsalis pedis(L) Skin: No rashes or pruritus, there is no sacral edema present at this time. Neurological: Intact cranial nerves with no focal neurologic deficits laboratory and microbiology Laboratory Tests 07/06/24 06:04 Test 07/06/24 06:04 Range/Units Serum Glucose 117 H 74-106 mg/dL Microbiology Date/Time Source Procedure Growth Status 07/04/24 17:28 Nose MRSA Screen - Final Complete Problem List/Assessment/Plan Problem List/Assessment/Plan Assessment/Plan Acute hypoxic respiratory failure likely due to acute on chronic systolic/diastolic heart failure -initial chest x-ray showed mild pulmonary vascular congestion with mild cardiomegaly -BNP was slightly elevated at 126.2 -last echocardiogram performed on 2022 showed an LVEF of 50%. We ordered a new echocardiogram which was already performed but waiting for official reports -start furosemide 40 mg IV b.i.d. -D-dimer was elevated at 3.73 -continue metoprolol tartrate 50 mg b.i.d. -continue nifedipine 30 mg q.d. 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 -clonidine 0.1 mg p.r.n. -metoprolol tartrate 50 mg b.i.d. -Continue furosemide 40 mg IV b.i.d. -monitor blood pressure closely Dyslipidemia -continue atorvastatin 20 mg q.p.m. Type 2 diabetes mellitus -ordered hemoglobin A1c -last blood glucose was 117 -monitor blood glucose, no need of insulin at this time History of stroke and [place], s/p stent placement in 2015 -continue aspirin 81 mg q.d. -continue clopidogrel 75 mg q.d. -continue atorvastatin 20 mg q.d. Goals of care discussed with the patient at bedside for >23min, FULL CODE Plan discussed with Dr. Leiva Plan discussed with: Patient Date of Service: Jul 06, 2024 Billing Provider: SHU LEIVA MD Common Visit Codes: [id number] INP/OBS CARE(HIGH) RENAN POLLOCK RESIDENT Jul 06, 2024 14:44 SHU LEIVA MD Jul 06, 2024 21:50
--- NOTE | 2024-07-06 14:51 | DVHPN2 ---
Progress Note - Dictate Date Seen: Jul 06, 2024 Has the PT tested + for MRSA If YES, has PT been informed?: No Medical Necessity Reason Pt with a Central, PICC or Fol: No Subjective PT WITH SS COMPLEX OF SOB ELLER LETHARGY EPISODES OF CP PMH: DIABETES NEPHROPATHY CKD STAGE IV VASCULOPATHY HTN HYPERLIPIDEMIA ORGANIC HD CAD HX OF [place] EF < 45% HX OF CVA vital signs Vital Sign Date Time Temp Pulse Resp B/P (MAP) Pulse Ox O2 Delivery O2 Flow Rate FiO2 07/06/24 14:43 98.5 62 18 126/87 (100) 96 98.5 07/06/24 08:00 Room Air* 0 21 Total Intake and Output 07/05/24 07/05/24 07/06/24 15:00 23:00 07:00 Intake Total 490 ml 150 ml Output Total 700 ml 500 ml Balance -210 ml -350 ml medications Current Medications Medications Dose Ordered Sig/Tai Route Start Time Stop Time Status Last Admin Dose Admin Aspirin 81 mg DAILY PO 07/05/24 10:00 07/06/24 09:59 81 MG Atorvastatin Calcium 20 mg HS PO 07/04/24 22:00 UNV Clopidogrel Bisulfate 75 mg DAILY PO 07/05/24 10:00 07/06/24 09:59 75 MG Metoprolol Tartrate 50 mg BID PO 07/04/24 22:00 07/06/24 10:00 50 MG Furosemide 40 mg BIDD IV 07/04/24 18:00 07/06/24 05:35 40 MG Albuterol 2.5 mg Q4HPRN PRN NEB 07/04/24 14:00 Ipratropium [place] 0.5 mg Q4HPRN PRN NEB 07/04/24 14:00 Atorvastatin Calcium 20 mg HS PO 07/04/24 22:00 07/05/24 21:25 20 MG Nitroglycerin 0.4 mg Q5MINP PRN SL 07/04/24 14:00 Clonidine HCl 0.1 mg Q4HPRN PRN PO 07/05/24 04:45 07/06/24 11:25 0.1 MG Nifedipine 60 mg DAILY PO 07/07/24 10:00 UNV laboratory and microbiology Laboratory Tests 07/06/24 06:04 Test 07/06/24 06:04 Range/Units Serum Glucose 117 H 74-106 mg/dL Problem List S COMPLEX OF SOB ELLER LETHARGY EPISODES OF CP PMH: DIABETES VASCULOPATHY NEPHROPATHY CKD STAGE IV HTN HYPERLIPIDEMIA ORGANIC HD CAD HX OF MA EF < 45% HX OF CVA Assessment/Plan ELEVATED CREATININE WITH NL BNP INHALER THERAPY ECHO STRESS CARDIOLITE WILL DEFER ANGIO SECONDARY TO RENAL FAILURE NEPHROLOGY CONSULT Plan discussed with: Patient RAISA BALL MD Jul 06, 2024 14:51
--- NOTE | 2024-07-06 14:57 | DVHSR ---
APPROVED REPORT EXAM: Two-dimensional and M-mode echocardiogram with Doppler and color Doppler. Blood Pressure: 145/82 mmHg INDICATION Eval for cardiac function and ef RISK FACTORS Obesity: Height: 5'9", Weight: 222 DIMENSIONS LVDd4.8 (3.8-5.7cm)LA (2D)3.7 (1.9-4.0cm)Aortic Root3.1 (2.0-3.7cm) LVDs3.9 (2.5-4.0cm)LA (MM) (1.9-4.0cm)Aortic Cusp Exc1.5 (1.5-2.0cm) EF (%) 40.0 (55-70%)Rt. Atrium4.3 (1.9-4.0cm)Asc. Aorta cm IVSd1.1 (0.7-1.1cm)RV (D)3.6 (1.8-2.4cm) PWd1.1 (0.7-1.1cm) Mitral Valve MitralMitral Stenosis E wave1.19m/sMV Mean GR.mmHg A wave1.05m/sMV Peak GR.mmHg E/A ratio1.12D MVAcm2 DECEL [id number] 1/2 [place] Aortic Valve Aortic ValveAortic Stenosis V10.92m/Ignacio Mean GR.4mmHg V21.44m/Ignacio Peak GR.8mmHg LVOT Diameter2.1 (1.8-2.4cm)Doppler AVA2.21cm2 Pulmonic Valve V20.88m/s Tricuspid Valve TR Velocity2.38m/s [id number] Conclusion GOBAL HYPOKINESIS ZANE MILD TR MILD MR EF < 40%
--- NOTE | 2024-07-06 15:19 | ECG ---
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
[2024-07-06] MEDS: NIFEdipine 10 MG CAP PO ONE (15:23)
[2024-07-06] MEDS: SODIUM CHLORIDE 0.9% 250 ML IV ONE (17:45)
[2024-07-06] MEDS: hydrALAZINE HCL 25 MG TAB PO SCH (22:00)
[2024-07-07] VITALS (7 sets, daily range): BP systolic 111–154; BP diastolic 69–84; PULSE 70–87; RESP 16–19; TEMP 97.5–98.7; O2SAT 94–98
[2024-07-07 06:40] LABS: Basophils # (auto) 0.1 10 ^3/uL (0-0.2); Basophils % (auto) 1.1 % (0.0-2.0); Eosinophils # (auto) 0.8 10 ^3/uL (0-0.8); Hematocrit 33.8 % (41.0-53.0); Hemoglobin 11.6 g/dL (13.5-17.5); Lymphocytes # (auto) 2.5 10 ^3/uL (0.4-5.4); Lymphocytes % (auto) 27.1 % (10.0-50.0); Mean Corpuscular Hemoglobin 31.3 pg (28.0-32.0); Mean Corpuscular Hgb Conc. 34.2 g/dL (32.0-36.0); Mean Corpuscular Volume 91.6 fL (80.0-100.0); Monocytes # (auto) 1.1 10 ^3/uL (0-1.3); Neutrophils # (auto) 4.6 10 ^3/uL (1.6-8.6); Neutrophils % (auto) 50.8 % (37.0-80.0); Platelet Count (auto) 312 10^3/uL (140-450); Red Blood Cells 3.69 10^6/uL (4.5-5.90); Red Cell Distribution Width 14.4 % (11.8-14.3); White Blood Cell 9.1 10^3/uL (4.4-10.8)
[2024-07-07 06:52] LABS: Anion Gap 5 (5-15); Carbon Dioxide 28 mmol/L (20-31); Chloride 102 mmol/L (98-107); Potassium 4.1 mmol/L (3.5-5.1); Sodium 135 mmol/L (136-145)
[2024-07-07 06:54] LABS: Calcium 8.9 mg/dL (8.7-10.4)
[2024-07-07 06:58] LABS: BUN/Creatinine Ratio 11.9 (10.0-20.0); Blood Urea Nitrogen 43 mg/dL (9-23); Glucose 147 mg/dL (74-106)
[2024-07-07] MEDS: NIFEdipine ER 30 MG TAB PO SCH (08:14)
--- NOTE | 2024-07-07 09:40 | DVH ---
EXAM: NM NM VQ SCAN HISTORY: PULMONARY EMBOLISM COMPARISON: Chest radiograph dated 07/04/2024 TECHNIQUE: Ventilation scan was performed after administration of 8.5 mCi of xenon -133. Wash-in, an d equilibrium images were obtained. Ventilation scan was performed after intravenous administration o f 11.2 mCi technetium 99 M MAA. Anterior, posterior, right anterior oblique, left anterior oblique, r ight posterior oblique left posterior oblique views were obtained. FINDINGS: Ventilation scan shows homogeneous distribution of radiotracer in both lungs. Perfusion scan demonstrates homogeneous distribution of radiotracer throughout the bilateral lungs wi th no large or segmental mismatched defect. IMPRESSION: 1. Low probability of pulmonary embolism.
[2024-07-07] MEDS ORDERED: NIFEdipine ER 30 MG TAB PO SCH (10:00)
[2024-07-07] MEDS: ADENOSINE 84 MG in GIVE UN-DILUTED 0 ML IV STA (13:30)
--- NOTE | 2024-07-07 14:01 | CONS ---
Pharmacy Clinical Information: From Concurrent Heart Failure CQM, Alex Monroe Jesus is a 53 year old male with a PMH of HTN, DM, Asthma, COPD, HLD, [place] [id number], stroke, CKD. His home medications for heart failure include lisinopril and metoprolol tartrate. His inpatient medications include furosemide, hydralazine, and metoprolol tartrate. Consider switching metoprolol tartrate to metoprolol succinate since sustained release metoprolol succinate is recommended by the guidelines to reduce mortality and hospitalizations. ARNi/ACEi/ARB, MRA, and SGLT2i not recommended due to elevated sCr, BUN, CrCl < 30, eGFR < 30. DENISE OVIEDO PHARMACIST Jul 07, 2024 14:01
--- NOTE | 2024-07-07 14:08 | DVHPN2 ---
Progress Note - Dictate Date Seen: Jul 07, 2024 Has the PT tested + for MRSA If YES, has PT been informed?: No Medical Necessity Reason Pt with a Central, PICC or Fol: No Subjective PT WITH SS COMPLEX OF SOB ELLER LETHARGY EPISODES OF CP PMH: DIABETES NEPHROPATHY CKD STAGE IV VASCULOPATHY HTN HYPERLIPIDEMIA ORGANIC HD CAD HX OF PA EF < 45% HX OF CVA vital signs Vital Sign Date Time Temp Pulse Resp B/P (MAP) Pulse Ox O2 Delivery O2 Flow Rate FiO2 07/07/24 13:00 98.1 78 16 143/72 (95) 95 98.1 07/07/24 08:00 Room Air* 0 21 Total Intake and Output 07/06/24 07/06/24 07/07/24 15:00 23:00 07:00 Intake Total 500 ml 300 ml Output Total 700 ml 450 ml Balance -200 ml -150 ml medications Current Medications Medications Dose Ordered Sig/Tai Route Start Time Stop Time Status Last Admin Dose Admin Aspirin 81 mg DAILY PO 07/05/24 10:00 07/07/24 08:12 81 MG Atorvastatin Calcium 20 mg HS PO 07/04/24 22:00 UNV Clopidogrel Bisulfate 75 mg DAILY PO 07/05/24 10:00 07/07/24 08:14 75 MG Metoprolol Tartrate 50 mg BID PO 07/04/24 22:00 07/06/24 10:00 50 MG Furosemide 40 mg BIDD IV 07/04/24 18:00 07/07/24 06:09 40 MG Atorvastatin Calcium 20 mg HS PO 07/04/24 22:00 07/06/24 22:08 20 MG Nitroglycerin 0.4 mg Q5MINP PRN SL 07/04/24 14:00 Clonidine HCl 0.1 mg Q4HPRN PRN PO 07/05/24 04:45 07/06/24 11:25 0.1 MG Hydralazine HCl 25 mg Q12HR PO 07/06/24 22:00 07/07/24 08:13 25 MG Nifedipine 30 mg DAILY PO 07/07/24 10:00 07/07/24 08:14 30 MG Ergocalciferol 50,000 unit Q7D PO 07/07/24 09:15 laboratory and microbiology Laboratory Tests 07/07/24 05:42 Test 07/07/24 05:42 Range/Units Serum Glucose 147 H 74-106 mg/dL Problem List S COMPLEX OF SOB ELLER LETHARGY EPISODES OF CP PMH: DIABETES VASCULOPATHY NEPHROPATHY CKD STAGE IV HTN HYPERLIPIDEMIA ORGANIC HD CAD HX OF PA EF < 45% HX OF CVA Assessment/Plan ELEVATED CREATININE WITH NL BNP INHALER THERAPY ECHO GLOBAL HYPOKINESIS EF 40% STRESS CARDIOLITE PENDING WILL DEFER ANGIO SECONDARY TO RENAL FAILURE NEPHROLOGY CONSULT CAROTID DUPLEX NEGATIVE V/Q SCAN NEGATIVE Plan discussed with: Patient RAISA BALL MD Jul 07, 2024 14:08
--- NOTE | 2024-07-07 15:26 | DVHSR ---
APPROVED REPORT Exam: Nuclear Stress Test BMI: 0 Stress Test Details HR Max Heart Rate (APMHR): 168.590927 bpm Target HR (85% APMHR): 142.219958 bpm BP ECG Stress ECG Conclusion Resting ECG shows normal sinus rhythm. At peak stress level there was no dynamic EKG changes to sugg est ischemia. Resting images shows near homogeneous uptake of radioactive tracer throughout the myocardium without evidence of myocardial infarction. Stress images shows near homogeneous uptake of radioactive tracer throughout the myocardium without e vidence of myocardial ischemia. Well-preserved left ventricular systolic function with estimated ejection fraction 65%. Impression: Negative stress test for ischemia, low risk study NM EXAM: Myocardial Perfusion REST/STRESS Imaging Protocol: Rest Tc-99m/Stress Tc-99m 1 day Resting Data Rest SPECT myocardial perfusion imaging was performed in supine position 60 minutes following the int ravenous injection of 12.4 mCi of Tc-99m Sestamibi. Time of rest injection: 1200 Time of rest imagin Administration Route: IV Administration Site: Left Arm Pharmacologic Stress Pharmacologic stress test was performed by injecting Adenosine mg IV push followed by the intravenou s injection of 20.2 mCi of Tc-99m Sestamibi. Time of stress injection: 1327 Time of stress imagin Administration Route: IV Administration Site: Left Arm Gated Stress SPECT was performed 60 minutes after stress injection. The images were gated to evaluate regional wall motion and calculate left ventricular ejection fracti on. Stress only was performed in the Supine position. Nuclear Conclusion ECG Findings: negative for ischemia Clinical Findings: negative for ischemia Nuclear Findings: negative for ischemia Exercise Capacity: normal Left Ventricular Function: normal Risk Study: low Resting ECG shows normal sinus rhythm. At peak stress level there was no dynamic EKG changes to sugg est ischemia. Resting images shows near homogeneous uptake of radioactive tracer throughout the myocardium without evidence of myocardial infarction. Stress images shows near homogeneous uptake of radioactive tracer throughout the myocardium without e vidence of myocardial ischemia. Well-preserved left ventricular systolic function with estimated ejection fraction 65%. Impression: Negative stress test for ischemia, low risk study
[2024-07-07] MEDS: ERGOCALCIFEROL 50,000 UNIT(1.25MG) CAP PO SCH (15:33)
--- NOTE | 2024-07-07 16:46 | DVHDSRES ---
Discharge Summary Date of Admission Resident Creating Document: RENAN POLLOCK RESIDENT Jul 04, 2024 at 13:46 Date of Discharge: Jul 07, 2024 Admitting Diagnosis Acute hypoxic respiratory failure Wounds: No wounds present at this time. Labs/Diagnostic Data: Laboratory Results Test 07/07/24 05:42 07/05/24 05:53 07/04/24 14:18 07/04/24 12:20 White Blood Count 9.1 10^3/uL (4.4-10.8) Red Blood Count 3.69 10^6/uL (4.5-5.90) Hemoglobin 11.6 g/dL (13.5-17.5) Hematocrit 33.8 % (41.0-53.0) Mean Corpuscular Volume 91.6 fL (80.0-100.0) Mean Corpuscular Hemoglobin 31.3 pg (28.0-32.0) Mean Corpuscular Hemoglobin Concent 34.2 g/dL (32.0-36.0) Red Cell Distribution Width 14.4 % (11.8-14.3) Platelet Count 312 10^3/uL (140-450) Mean Platelet Volume 9.1 fL (6.9-10.8) Neutrophils (%) (Auto) 50.8 % (37.0-80.0) Lymphocytes (%) (Auto) 27.1 % (10.0-50.0) Monocytes (%) (Auto) 12.0 % (0.0-12.0) Eosinophils (%) (Auto) 9.0 % (0.0-7.0) Basophils (%) (Auto) 1.1 % (0.0-2.0) Neutrophils # (Auto) 4.6 10 ^3/uL (1.6-8.6) Lymphocytes # (Auto) 2.5 10 ^3/uL (0.4-5.4) Monocytes # (Auto) 1.1 10 ^3/uL (0-1.3) Eosinophils # (Auto) 0.8 10 ^3/uL (0-0.8) Basophils # (Auto) 0.1 10 ^3/uL (0-0.2) Nucleated Red Blood Cells 0.0 % Sodium Level 135 mmol/L (136-145) Potassium Level 4.1 mmol/L (3.5-5.1) Chloride Level 102 mmol/L (98-107) Carbon Dioxide Level 28 mmol/L (20-31) Anion Gap 5 (5-15) Blood Urea Nitrogen 43 mg/dL (9-23) Creatinine 3.62 mg/dL (0.700-1.30) Glomerular Filtration Rate Calc 19 mL/min (>90) BUN/Creatinine Ratio 11.9 (10.0-20.0) Serum Glucose 147 mg/dL (74-106) Calcium Level 8.9 mg/dL (8.7-10.4) Hemoglobin A1c 7.3 % A1C (<5.7) Triglycerides Level 144 mg/dL (< 150) Cholesterol Level 204 mg/dL (< 200) LDL Cholesterol 142 mg/dL (< 100) HDL Cholesterol 39 mg/dL (40-59) Vitamin D 25-Hydroxy 24.5 ng/mL (30.0-100) Magnesium Level 2.1 mg/dL (1.6-2.6) Urine Color Light-yellow (Yellow) Urine Clarity Clear (Clear) Urine pH 6.0 (5.0-9.0) Urine Specific [employer] 1.012 (1.001-1.035) Urine Protein 3+ (Negative) Urine Ketones Negative (Negative) Urine Blood 1+ /uL (Negative) Urine Nitrite Negative (Negative) Urine Bilirubin Negative (Negative) Urine Urobilinogen Normal mg/dL (Negative) Urine Leukocyte Esterase Negative /uL (Negative) Urine RBC 13 /hpf (0 - 3) Urine WBC 4 /hpf (0 - 3) Urine Squamous Epithelial Cells None seen /hpf (<5) Urine Bacteria Mod /hpf (None Seen) Urine Glucose 2+ mg/dL (Normal) Test 07/04/24 09:40 07/04/24 06:50 07/04/24 06:48 Troponin I High Sensitivity 10 ng/L (</=54) Prothrombin Time 10.1 sec (9.3-11.8) Prothrombin Time INR 0.95 (0.9-1.15) Activated Partial Thromboplast Time 28.2 SEC (24.5-34.5) D-Dimer, Quantitative 3.73 mg/L FEU (0.0-0.49) Total Bilirubin 0.3 mg/dL (0.2-1.0) Aspartate Amino Transferase (AST) 29 U/L (13-40) Alanine Aminotransferase (ALT) 36 U/L (7-40) Alkaline Phosphatase 118 U/L (46-116) B-Type Natriuretic Peptide 126.29 pg/mL (0-100) Total Protein 7.0 g/dL (5.7-8.2) Albumin 3.9 g/dL (3.2-4.8) Thyroid Stimulating Hormone (TSH) 2.53 uIU/mL (0.55-4.78) POC Glucose 116 mg/dl (70-106) Other Laboratory Tests 07/07/24 05:42 Brief Hx & Hospital Course: This is a 53-year-old male with past medical history of hypertension, type 2 diabetes, COPD, hyperlipidemia, AR, stroke last year in January 20, 2024, s/p stent placement X one in 2015 who presented to the ED with chief complaint of tiredness and fatigue associated with shortness of breaths that has been getting worse in the past few days. Patient states that his marking stitcher is Dr. Navarrete. 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 The patient also reported that he has history of heart failure and previous AR but lost cardiac follow-up due to loss of his insurance. Upon admission, initial labs were showing MARJAN on CKD with a creatinine of 3.44 and BUN of 40. D-dimer was elevated at 3.73, BNP was elevated as well at 1:26 a.m. troponins came back negative and lipid panel was showing hyperlipidemia. Initial chest x-ray was showing mild vascular congestion with very mild cardiomegaly. There is an echocardiogram performed on 2022 which is showing an LVEF of 50%. We ordered a new echocardiogram which showed LVEF <40%. Cardiology was consulted which ordered a cardiolite stress test which was consistent with Negative stress test for ischemia and low risk study. Carotid Doppler ultrasound showed no hemodynamic stenosis bilaterally and bilateral lower venous Doppler showed no evidence of DVTs at this time. CT scan of the head without contrast also showed no acute intracranial process. Patient is feelining well overall, denies chest pain or SOB and bilateral lower extremity swelling has improved considerably compared to admission. We will discharge the patient on entresto 1 tab BID, metoprolol succinate 50mg QD, Furosemide 40mg QD. Patient will f/u closely with his PCP in 1 week and with his marking stitcher in 1-2 weeks. Patient agrees and understands the plan. ROS Constitutional: Denies weight loss, fever and chills. HEENT: Denies changes in vision and hearing. Respiratory: Denies shortness of breath and cough Cardiovascular: Denies chest discomfort or palpitations GI: Denies abdominal pain, nausea, vomiting and diarrhea. : Denies dysuria and urinary frequency. Musculoskeletal: Denies myalgias and joint pain Skin: Denies rash and pruritus. Neurological: Denies dizziness, headache, vision or hearing problems Physical Examination General: Patient alert and oriented in person, place and time. Patient following commands. HEENT: Normocephalic, atraumatic, moist mucous membranes Respiratory/pulmonary: Clear lungs bilaterally, no associated crackles or wheezes. Cardiovascular: Normal heart sounds S1 and S2 with no associated murmurs Abdomen: Abdomen nondistended, there is no pain to palpation in any of the abdominal quadrants, no palpable masses. Extremities: There is 1+ pitting peripheral edema present at the lower extremities, which improved compare to admission. Peripheral Pulses: 3+ Radial (R). 3+ Radial (L). 3+ Dorsalis pedis (R). 3+ Dorsalis pedis(L) Skin: No rashes or pruritus, there is no sacral edema present at this time. Neurological: Intact cranial nerves with no focal neurologic deficits Consults/Reason for consult Cardiology for CHF exacerbation Operations or Procedures CHEST RADIOGRAPH Indication:CHEST PAIN Technique: Single frontal view of the chest was obtained Comparison: XY CHEST PORTABLE on DOS: 06/19/24 FINDINGS: Lines and Tubes: None Lungs: Lungs are hypoinflated. Bilateral interstitial prominence. Pleura: No effusion. No pneumothorax. Cardiomediastinal contours: Stable. Bones: No acute osseous abnormality. IMPRESSION: 1. Hypoinflated lungs. There may be a component of pulmonary congestion. Carotid Duplex Date: 07/04/2024 02:01 PM Clinical History: eval for vascular occlusion Comparison: US CAROTID DUPLX W COLOR DOP on DOS: 01/15/23 Technique: Duplex Doppler evaluation of the extracranial carotid and vertebral arteries including color Doppler and spectral/pulsed waveform analysis was performed. Findings: RIGHT SIDE: The peak systolic velocities are 80.2 cm/s in the distal CCA and 75.8 cm/s in the proximal ICA.The ICA/CCA ratio is less than 1. The external carotid artery is patent with peak systolic velocity of 147.9 cm/s proximally. There is appropriate antegrade flow in the right vertebral artery 55.0 cm/seconds LEFT SIDE: The peak systolic velocities are 92 cm/s in the distal CCA and 81.5 cm/s in the proximal ICA.. The ICA/CCA ratio is less than 1. The external carotid artery is patent with peak systolic velocity of 131.2 cm/s proximally. There is appropriate antegrade flow in the left vertebral artery, 61 cm/s antegrade flow. IMPRESSION: 1. No hemodynamically significant stenosis noted in the right carotid system. 2. No hemodynamically significant stenosis noted in the left carotid system. Bilateral lower extremity venous duplex Clinical History: eval for dvt Comparison: None Technique: Duplex Doppler evaluation of the deep venous systems of both lower extremities from the common femoral veins to the popliteal veins including color Doppler and spectral/pulsed waveform analysis was performed. Findings: RIGHT SIDE: The common femoral vein demonstrates appropriate compressibility and waveform variability. There is compressibility/patency of the great saphenous vein at the proximal thigh. The femoral vein demonstrates appropriate compressibility and waveform variability. The deep femoral vein demonstrates appropriate compressibility and waveform variability. The popliteal vein demonstrates appropriate compressibility and waveform variability. There is normal compressibility at the tibioperoneal trunk. LEFT SIDE: The common femoral vein demonstrates appropriate compressibility and waveform variability. There is compressibility/patency of the great saphenous vein at the proximal thigh. The femoral vein demonstrates appropriate compressibility and waveform variability. The deep femoral vein demonstrates appropriate compressibility and waveform variability. The popliteal vein demonstrates appropriate compressibility and waveform variability. There is normal compressibility at the tibioperoneal trunk. Impression: 1. No right or left femoropopliteal venous thrombosis. 2. Bilateral inguinal lymph node noted 3.1 cm on the right and 2.4 cm on the left. EXAM: CT HEAD WITHOUT CONTRAST HISTORY: eval for acute syncope COMPARISON: CT HEAD WITHOUT CONTRAST on DOS: 06/19/24 TECHNIQUE: Axial images were obtained and reformatted in coronal and sagittal planes. All CT scans at this medical facility are performed using dose modulation techniques as appropriate to a performed exam including the following: Automated exposure control was utilized; adjustment of the MA and/or KV according to patient size; and use of iterative reconstruction technique. CT Dose: CTDI volume is 54.05 mGy. Dose-length product is 866.58 mGy*cm FINDINGS: Supratentorial Region: No evidence for large acute territorial ischemia. No intracranial hemorrhage is noted. Old right thalamic infarcts noted. Posterior Fossa: No acute abnormality. Brainstem: Unremarkable. Sellar/Suprasellar Region: Unremarkable. Ventricles, Cisterns, Sulci: Age-appropriate. Orbits: Unremarkable. Paranasal Sinuses: Unremarkable. Mastoid Air Cells: Unremarkable. Vasculature: Intracranial arterial calcified plaque formation noted. Bones/Soft Tissues: No acute abnormality. Other: None. IMPRESSION: 1. No acute intracranial process. EXAM: NM NM VQ SCAN HISTORY: PULMONARY EMBOLISM COMPARISON: Chest radiograph dated 07/04/2024 TECHNIQUE: Ventilation scan was performed after administration of 8.5 mCi of xenon -133. Wash-in, and equilibrium images were obtained. Ventilation scan was performed after intravenous administration of 11.2 mCi technetium 99 M MAA. Anterior, posterior, right anterior oblique, left anterior oblique, right posterior oblique left posterior oblique views were obtained. FINDINGS: Ventilation scan shows homogeneous distribution of radiotracer in both lungs. Perfusion scan demonstrates homogeneous distribution of radiotracer throughout the bilateral lungs with no large or segmental mismatched defect. IMPRESSION: 1. Low probability of pulmonary embolism. Exam: Nuclear Stress Test BMI: 0 Stress Test Details HR Max Heart Rate (APMHR): 168.631383 bpm Target HR (85% APMHR): 142.684673 bpm BP ECG Stress ECG Conclusion Resting ECG shows normal sinus rhythm. At peak stress level there was no dynamic EKG changes to suggest ischemia. Resting images shows near homogeneous uptake of radioactive tracer throughout the myocardium without evidence of myocardial infarction. Stress images shows near homogeneous uptake of radioactive tracer throughout the myocardium without evidence of myocardial ischemia. Well-preserved left ventricular systolic function with estimated ejection fraction 65%. Impression: Negative stress test for ischemia, low risk study NM EXAM: Myocardial Perfusion REST/STRESS Imaging Protocol: Rest Tc-99m/Stress Tc-99m 1 day Resting Data Rest SPECT myocardial perfusion imaging was performed in supine position 60 minutes following the intravenous injection of 12.4 mCi of Tc-99m Sestamibi. Time of rest injection: 1200 Time of rest imagin Administration Route: IV Administration Site: Left Arm Pharmacologic Stress Pharmacologic stress test was performed by injecting Adenosine mg IV push followed by the intravenous injection of 20.2 mCi of Tc-99m Sestamibi. Time of stress injection: 1327 Time of stress imagin Administration Route: IV Administration Site: Left Arm Gated Stress SPECT was performed 60 minutes after stress injection. The images were gated to evaluate regional wall motion and calculate left ventricular ejection fraction. Stress only was performed in the Supine position. Nuclear Conclusion ECG Findings: negative for ischemia Clinical Findings: negative for ischemia Nuclear Findings: negative for ischemia Exercise Capacity: normal Left Ventricular Function: normal Risk Study: low Resting ECG shows normal sinus rhythm. At peak stress level there was no dynamic EKG changes to suggest ischemia. Resting images shows near homogeneous uptake of radioactive tracer throughout the myocardium without evidence of myocardial infarction. Stress images shows near homogeneous uptake of radioactive tracer throughout the myocardium without evidence of myocardial ischemia. Well-preserved left ventricular systolic function with estimated ejection fraction 65%. Impression: Negative stress test for ischemia, low risk study Condition at Discharge: Stable Final Diagnosis/Problems List Acute hypoxic respiratory failure likely due to acute on chronic systolic/diastolic heart failure Acute hypoxic respiratory failure, R/O PE Primary hypertension Dyslipidemia Type 2 diabetes mellitus History of stroke and AR, s/p stent placement in 2016 Discharge Disposition: Home Discharge Instruct/Medications Diet: Cardiac 2g Na,low cholest Activity: No Restrictions, As Tolerated Follow Up/Referral: F/U with PCP in 1 week F/U with his marking stitcher in 2 weeks Medications: Entresto 1 tab BID po Metoprolol succinate 50mg QD Stop nifedipine and metoprolol tartrate Discharge Statement: "Patient was advised to return to the ER or call 911 if any headaches, dizziness, shortness of breath, chest pain, abdominal pain, bleeding, fevers, or worsening of medical condition. Patient was counseled about treatment plan, medications, possible side effects, patientverbalized understanding. All questions were answered to the best of my ability. This discharge took greater then 30 minutes in planning, reviewing documentation, counseling the patient, and discussing with other team members." ASSESSMENT ASSESSMENT Assessment Date of Service: Jul 07, 2024 Billing Provider: SHU SIMEON MD Common Visit Codes: 60597-PLH/OBS DISCH DAY >30min RENAN POLLOCK RESIDENT Jul 07, 2024 16:46 SHU SIMEON MD Jul 07, 2024 19:04
[2024-07-07] MEDS ORDERED: METO-289 PO (16:49)
[2024-07-07] MEDS ORDERED: SACU1TAB PO (16:49)
[2024-07-09] MEDS ORDERED: LISI10TA34 PO (09:55)
== END 2024-07-07 19:10 | disposition home or self-care (01) | DRG 194 ==
LOC: ER 06:39 → TELE 13:46 → TELE-E-ADS 15:39
PROVIDERS: ADMIT Internal Medicine Geriatric Medicine; ATTEND Internal Medicine Geriatric Medicine
DX: I13.0 Hypertensive heart and chronic kidney disease with heart failure and stage 1 through stage 4 chronic kidney disease, or unspecified chronic kidney disease (principal); J96.01 Acute respiratory failure with hypoxia; N17.9 Acute kidney failure, unspecified; J44.1 Chronic obstructive pulmonary disease with (acute) exacerbation; J45.901 Unspecified asthma with (acute) exacerbation; I50.43 Acute on chronic combined systolic (congestive) and diastolic (congestive) heart failure; E78.5 Hyperlipidemia, unspecified; I25.10 Atherosclerotic heart disease of native coronary artery without angina pectoris; N18.4 Chronic kidney disease, stage 4 (severe); E11.22 Type 2 diabetes mellitus with diabetic chronic kidney disease; I25.2 Old myocardial infarction; Z86.73 Personal history of transient ischemic attack (TIA), and cerebral infarction without residual deficits; Z95.5 Presence of coronary angioplasty implant and graft; Z79.4 Long term (current) use of insulin; Z79.899 Other long term (current) drug therapy
CPT/HCPCS: 36415; 70450; 71045; 78452; 78582; 80048; 80053; 80061; 81001; 82306; 82962; 83036; 83735; 83880; 84443; 84484; 85025; 85379; 85610; 85730; 87081; 93005; 93017; 93306; 93886; 93970; 94640; G0378; J0153

== ENCOUNTER 2024-09-13 09:40 | Inpatient (IN) | payer MEDICAID ==
[~2024-09-13] VITALS: Ht 175.3 cm; Wt 84.9 kg
[~2024-09-13 09:40] MED LIST changes: +BUME1TAB3 PO; -CLOP75TA70 PO; +DAPA1TAB4 PO; +LISI10TA34 PO; -METO-158 PO; +METO-289 PO; -METO25TA5 PO; +NIFE1TAB30 PO; -NIFE1TAB36 PO
--- NOTE | 2024-09-13 11:03 | DVH ---
CHEST RADIOGRAPH Indication: SOB Technique: Frontal and lateral view of the chest was obtained Comparison: XY CHEST TWO VIEWS ROUTINE on DOS: 01/15/23 FINDINGS: Lines and Tubes: None Lungs: Congestion Pleura: Small bilateral pleural effusions No pneumothorax. Cardiomediastinal contours: Unremarkable Bones: Unremarkable IMPRESSION: Pulmonary edema
[2024-09-13 11:28] LABS: Basophils # (auto) 0.1 10 ^3/uL (0-0.2); Basophils % (auto) 0.8 % (0.0-2.0); Eosinophils # (auto) 0.6 10 ^3/uL (0-0.8); Eosinophils % (auto) 5.5 % (0.0-7.0); Hematocrit 31.3 % (41.0-53.0); Hemoglobin 10.5 g/dL (13.5-17.5); Lymphocytes # (auto) 1.9 10 ^3/uL (0.4-5.4); Lymphocytes % (auto) 17.9 % (10.0-50.0); Mean Corpuscular Hemoglobin 30.4 pg (28.0-32.0); Mean Corpuscular Hgb Conc. 33.7 g/dL (32.0-36.0); Mean Corpuscular Volume 90.3 fL (80.0-100.0); Monocytes # (auto) 1.2 10 ^3/uL (0-1.3); Monocytes % (auto) 11.1 % (0.0-12.0); Neutrophils # (auto) 6.9 10 ^3/uL (1.6-8.6); Neutrophils % (auto) 64.7 % (37.0-80.0); Nucleated Red Blood Cells % 0.1 %; Platelet Count (auto) 374 10^3/uL (140-450); Red Blood Cells 3.47 10^6/uL (4.5-5.90); Red Cell Distribution Width 14.8 % (11.8-14.3); White Blood Cell 10.6 10^3/uL (4.4-10.8)
[2024-09-13 11:34] LABS: Potassium 4.6 mmol/L (3.5-5.1); Sodium 137 mmol/L (136-145)
[2024-09-13 11:36] LABS: Anion Gap 8 (5-15); Calcium 9.5 mg/dL (8.7-10.4); Carbon Dioxide 21 mmol/L (20-31); Chloride 108 mmol/L (98-107)
[2024-09-13 11:41] LABS: BUN/Creatinine Ratio 11.8 (10.0-20.0); Glucose 100 mg/dL (74-106)
[2024-09-13 11:44] LABS: Blood Urea Nitrogen 58 mg/dL (9-23)
--- NOTE | 2024-09-13 11:44 | ED.PDOC ---
History of Present Illness HPI Comments This is a 53-year-old male who comes in with chief complaint of shortness a breath as well as cough and swelling to the lower extremities. The patient states that the cough is not productive. He denies any fever or chills. States that the shortness a breath worsens when he lays down. It has been worsening over the past one week. He is complaining of some chest pain which she describes as tightness to the chest. The symptoms have all been increasing over the past three weeks. He states that the chest pain is associated with radiation to the left arm. He was brought to the emergency department's by his family. Upon arrival, the patient was hypertensive with 194/100. Patient has no other complaints this time. Chief Complaint: Shortness of Breath Time Seen by MD: 10:11 Primary Care Provider: paty Varela Notes: Nurses Notes, Medications, Allergies (No allergies to medications) Allergies: Coded Allergies: NO KNOWN ALLERGIES (Unverified , 04/30/16) Home Meds Active Scripts Lisinopril (Lisinopril) 10 Mg Tab, 10 MG PO DAILY for 30 Days, #30 TAB Prov:RENAN POLLOCK RESIDENT 07/09/24 Metoprolol Succinate (Metoprolol Succinate Er) 50 Mg Tab, 1 TAB PO DAILY for 30 Days, #30 TAB 5 Refills Prov:RENAN POLLOCK RESIDENT 07/07/24 Atorvastatin Calcium (ATORVASTATIN CALCIUM) 20 Mg Tab, 20 MG PO HS for 30 Days, #30 TAB 3 Refills Prov:ILYA DAY DO 06/20/24 Clopidogrel Bisulfate (Plavix) 75 Mg Tab, 1 TAB PO DAILY, #90 TAB 1 Refill Prov:JONATHAN ALBERT MD 01/21/23 Aspirin (ASPIRIN/ENTERIC) 81 Mg Tab, 81 MG PO DAILY, #90 TAB Prov:JONATHAN ALBERT MD 01/21/23 Reported Medications Hydrochlorothiazide (Hydrochlorothiazide) 12.5 Mg Cap, 1 CAP PO DAILY for 30 Days, #30 07/06/24 Ergocalciferol (Vitamin D (Ergocalciferol) 50,000 Unit Cap, 1 CAP PO QWEEKLY for 28 Days, #4 07/06/24 Albuterol Sulfate (Albuterol Sulfate Hfa) 108 Mcg/Act Aer, 2 PUFF INH 06/20/24 Metformin Hydrochloride (Metformin Hcl) 850 Mg Tab, 850 MG PO BID for 30 Days, MG 01/15/23 Information Source: Patient Mode of Arrival: Wheelchair Severity: Moderate Timing: Days Duration: Since onset Prehospital treatment: None Associated signs and symptoms Leg swelling with some chest pain and shortness for breath Past Medical History PAST MEDICAL HISTORY: CVA, DM, High Lipids, HTN, OR Past Medical History (Other): Renal disease Surgical History: PTCA Family History Family History: Reviewed,noncontributory to illness, Family hx of DM, Family hx of HTN Social History Smoker: Non-Smoker Alcohol: Occasionally Drugs: Denies Drug Use Lives In: Home Constitutional: denies: chills, diaphoresis, fatigue, fever, malaise, sweats, weakness, others EENTM: denies: blurred vision, double vision, ear bleeding, ear discharge, ear drainage, ear pain, ear ringing, eye pain, eye redness, hearing loss, mouth pain, mouth swelling, nasal discharge, nose bleeding, nose congestion, nose pain, photophobia, tearing, throat pain, throat swelling, voice changes, others Respiratory: reports: cough, shortness of breath (Shortness for breath worsens upon lying down); denies: hemoptysis, orthopnea, SOB at rest, SOB with excertion, stridor, wheezing, others Cardiovascular: denies: chest pain, dizzy spells, diaphoresis, Dyspnea on exertion, edema, irregular heart beat, left arm pain, lightheadedness, palpitations, PND, syncope, others Gastrointestinal: denies: abdomen distended, abdominal pain, blood streaked bowels, constipated, diarrhea, dysphagia, difficulty swallowing, hematemesis, melena, nausea, poor appetite, poor fluid intake, rectal bleeding, rectal pain, vomiting, others Genitourinary: denies: burning, dysuria, flank pain, frequency, hematuria, incontinence, penile discharge, penile sore, pain, testicle pain, testicle swelling, urgency, others Neurological: denies: dizziness, fainting, headache, left sided numbness, left sided weakness, numbness, paresthesia, pre-existing deficit, right sided numbness, right sided weakness, seizure, speech problems, tingling, tremors, weakness, others Musculoskeletal: denies: back pain, gout, joint pain, joint swelling, muscle pain, muscle stiffness, neck pain, others Integumetry: denies: bruises, change in color, change in hair/nails, dryness, laceration, lesions, lumps, rash, wounds, others Allergic/Immunocompromised: denies: Difficulty Healing, Frequent Infections, Hives, Itching, others Hematologic/Lymphatic: denies: anemia, blood clots, easy bleeding, easy bruising, swollen glands, others Endocrine: denies: excessive hunger, excessive sweating, excessive thirst, excessive urination, flushing, intolerance to cold, intolerance to heat, unexplained weight gain, unexplained weight loss, others Psychiatric: denies: anxiety, bipolar disorder, depression, hopeless, panic disorder, schizophrenia, sleepless, suicidal, others Physical Exam General Appearance: Moderate Distress HEENT: Normal ENT Inspection, Pharynx Normal, TMs Normal Neck: Full Range of Motion, Non-Tender, Normal, Normal Inspection Respiratory: Chest Non-Tender, Lungs Clear, No Accessory Muscle Use, No Respiratory Distress, Normal Breath Sounds Cardiovascular: No Edema, No JVD, No Murmur, No Gallop, Normal Peripheral Pulses, Regular Rate/Rhythm Breast Exam: Deferred Gastrointestinal: No Organomegaly, Non Tender, No Pulsatile Mass, Normal Bowel Sounds, Soft Genitalia: Deferred Pelvic: Deferred Rectal: Deferred Extremities: No calf tenderness, Normal capillary refill, Pedal edema Musculoskeletal : Apperance: Normal Neurologic: Alert, supervisor scouring pads II-XII nml as Tested, No Motor Deficits, Normal Affect, Normal Mood, No Sensory Deficits Cerebellar Function: Normal Reflexes: Normal Skin: Dry, Normal Color, Warm Lymphatic: No Adenopathy Was a procedure done? Was a procedure done?: No EKG EKG : Pulse Rate (adult): 85 [place]: Normal Cardiac Rhythm: NSR Block: None ST: Nonsp Differential Dx Considerations may include: Acute on chronic diastolic heart failure, ACS, OR, pneumonia, COPD exacerbation X-Ray, Labs, Meds, VS Vital Signs Date Time Temp Pulse Resp B/P (MAP) Pulse Ox O2 Delivery O2 Flow Rate FiO2 09/13/24 10:31 85 09/13/24 10:09 97.9 86 20 194/100 (131) 95 Lab Test 09/13/24 10:56 Range/Units White Blood Count 10.6 4.4-10.8 10^3/uL Red Blood Count 3.47 L 4.5-5.90 10^6/uL Hemoglobin 10.5 L 13.5-17.5 g/dL Hematocrit 31.3 L 41.0-53.0 % Mean Corpuscular Volume 90.3 80.0-100.0 fL Mean Corpuscular Hemoglobin 30.4 28.0-32.0 pg Mean Corpuscular Hemoglobin Concent 33.7 32.0-36.0 g/dL Red Cell Distribution Width 14.8 H 11.8-14.3 % Platelet Count 374 140-450 10^3/uL Mean Platelet Volume 8.5 6.9-10.8 fL Neutrophils (%) (Auto) 64.7 37.0-80.0 % Lymphocytes (%) (Auto) 17.9 10.0-50.0 % Monocytes (%) (Auto) 11.1 0.0-12.0 % Eosinophils (%) (Auto) 5.5 0.0-7.0 % Basophils (%) (Auto) 0.8 0.0-2.0 % Neutrophils # (Auto) 6.9 1.6-8.6 10 ^3/uL Lymphocytes # (Auto) 1.9 0.4-5.4 10 ^3/uL Monocytes # (Auto) 1.2 0-1.3 10 ^3/uL Eosinophils # (Auto) 0.6 0-0.8 10 ^3/uL Basophils # (Auto) 0.1 0-0.2 10 ^3/uL Nucleated Red Blood Cells 0.1 % Sodium Level 137 136-145 mmol/L Potassium Level 4.6 3.5-5.1 mmol/L Chloride Level 108 H 98-107 mmol/L Carbon Dioxide Level 21 20-31 mmol/L Anion Gap 8 5-15 Blood Urea Nitrogen 58 H 9-23 mg/dL Creatinine 4.91 H 0.700-1.30 mg/dL Glomerular Filtration Rate Calc 13 >90 mL/min BUN/Creatinine Ratio 11.8 10.0-20.0 Serum Glucose 100 74-106 mg/dL Calcium Level 9.5 8.7-10.4 mg/dL Troponin I High Sensitivity 54 </=54 ng/L B-Type Natriuretic Peptide 384.06 0-100 pg/mL IV Hep-Lock was established The chest x-ray shows pulmonary edema. BNP history and and 84.06 The CBC shows anemia with a hemoglobin of 10.5 hematocrit is 31.3 The BUN is 58 and the creatinine is 4.91 The patient was being admitted with a diagnosis of acute renal failure The patient was also given a diagnosis of acute on chronic diastolic heart failure The patient is being admitted The patient also has a accelerated hypertension The patient was given Lasix 40 mg IV push. A cardiology consult will be obtained. Images Reviewed?: Images reviewed and evaluated by me Time of 1ST Reevaluation: 11:53 Reevaluation 1ST: Unchanged Patient Education/Counseling: Diagnosis, Treatment, Prognosis Family Education/Counseling: No Family Present Departure 1 Departure Time of Disposition: 11:54 Impression: Primary Impression: Acute on chronic diastolic heart failure Additional Impressions: Acute renal disease Accelerated hypertension Disposition: 09 ADMITTED INPATIENT Admit to: [facility] Condition: Fair Critical Care Note Critical Care Time?: Yes (45 min-critical care time only) Stability Stability form required: Yes Unstable for transfer: Telemetry monitoring (Telemetry monitoring required), ED Physician Assesment (Clinical assesment) Heart Score Heart Score: Heart Score Response (Comments) Value History Moderate Suspicious 1 EKG Repolarization Disturb 1 Age 45-64 1 Risk Factors >3 or Hx ASHD 2 Troponin N/A 0 Total 5 ROC ROACH MD Sep 13, 2024 11:44
[2024-09-13] MEDS: FUROSEMIDE 40 MG/4 ML VIAL IV ONE (12:08)
[2024-09-13 12:33] VITALS: PULSE 87; RESP 19; O2SAT 91
[2024-09-13] MEDS: hydrALAZINE HCL 20 MG/ML VL IV ONE (14:08)
[2024-09-13 14:58] LABS: Urine Bacteria FEW /hpf (None Seen); Urine Blood 1+ /uL (Negative); Urine Clarity Clear (Clear); Urine Color Light-Yellow (Yellow); Urine Hyaline Cast FEW /lpf (0 - 2); Urine Protein, UAD 3+ (Negative); Urine Specific Gravity 1.012 (1.001-1.035); Urine Squamous Epithelial Cell FEW /hpf (<5); Urine Urobilinogen Normal (Negative); Urine WBC 2 /hpf (0 - 3)
[2024-09-13] MEDS ORDERED: ALBUTEROL SULF 2.5 MG/0.5ML(0.5%) NEB SOLN NEB PRN (15:30)
[2024-09-13] MEDS ORDERED: DEXTROSE (50%) 50ML SYRG IV PRN (15:30)
[2024-09-13] MEDS ORDERED: NITROGLYCERIN 0.4 MG SL TAB SL PRN (15:30)
[2024-09-13] MEDS ORDERED: MORPHINE SULFATE INJ 2 MG/ml SYRG IV PRN (15:30)
--- NOTE | 2024-09-13 15:41 | DVHHP2 ---
History of Present Illness Reason for Visit: Shortness of breath likely due to CHF exacerbation rule out PE History of Present Illness This is a 53-year-old male who comes in with chief complaint of shortness a breath x3 weeks associated with cough and bilateral lower extremity edema that has progressively gotten worse this past week. He has history of CVA without deficit, type 2 DM, hyperlipidemia, hypertension, CKD, PTCA and NH. the patient states that the shortness of breath worsens when he lays down. He denies any fever or chills. He is complaining of some chest pain which she describes as tightness to the chest. The symptoms have all been increasing over the past three weeks. He states that the chest pain is associated with radiation to the left arm. He was brought to the emergency department's by his family. Upon arrival, the patient was hypertensive with 194/100. Patient has no other complaints this time during evaluation. The patient will be admitted under hospitalist care to the telemetry unit for further evaluation and recommendation. 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) Renal/: Chronic renal insuff Endocrine: Diabetes Past Surgical History PTCA Family History: DM, Hypertension Smoke: No ALCOHOL: occassional Drugs: None Lives: with Family Domestic Violence: Neg Review of Systems Respiratory: Shortness of breath Cardiovascular: Chest Pain, Edema (Bilateral lower extremity edema) Allergies: Coded Allergies: NO KNOWN ALLERGIES (Unverified , 04/30/16) Medications Current Medications Medications Dose Ordered Sig/Tai Route Start Time Stop Time Status Last Admin Dose Admin Hydralazine HCl 10 mg Q6HP PRN IV 09/13/24 15:30 UNV Albuterol 2.5 mg Q2HPRN PRN NEB 09/13/24 15:30 UNV Acetaminophen 650 mg Q6HP PRN PO 09/13/24 15:30 UNV Nitroglycerin 0.4 mg Q5MINP PRN SL 09/13/24 15:30 UNV Morphine Sulfate 2 mg Q30M PRN IV 09/13/24 15:30 UNV Heparin Sodium (Porcine) 5,000 units Q12HR SC 09/13/24 22:00 UNV Diagnostic Test (Pha) 1 strip ACHS 09/13/24 17:00 UNV Insulin Human Regular ACHS SC 09/13/24 17:00 UNV Dextrose 50 ml UD PRN IV 09/13/24 15:30 UNV Exam Vital Signs Vital Signs Date Time Temp Pulse Resp B/P (MAP) Pulse Ox O2 Delivery O2 Flow Rate FiO2 09/13/24 14:41 94 11 161/89 (113) 98 09/13/24 13:30 Nasal Cannula* 2 28 09/13/24 13:26 97.8 97.8 General Appearance: Alert, Oriented X3, Cooperative, No acute distress HEENT: Atraumatic, PERRLA, Mucous membr. moist/pink Respiratory: Clear to auscultation, Normal air movement Cardiovascular: Normal S1, Normal S2, No murmurs Abdominal: Normal bowel sounds, Soft, No tenderness, No hepatospenomegaly, No masses Extremities: No clubbing, No cyanosis, Normal pulses Skin: No rashes, No breakdown Neuro: Normal speech, Strength at 5/5 X4 ext, Normal tone, Sensation intact, Cranial nerves 3-12 NL, Reflexes 2+ Psych/Mental Status: Mental status NL Labs/Xrays Labs Test 09/13/24 14:31 09/13/24 10:56 09/13/24 10:28 Range/Units Troponin I High Sensitivity 49 </=54 ng/L White Blood Count 10.6 4.4-10.8 10^3/uL Red Blood Count 3.47 L 4.5-5.90 10^6/uL Hemoglobin 10.5 L 13.5-17.5 g/dL Hematocrit 31.3 L 41.0-53.0 % Mean Corpuscular Volume 90.3 80.0-100.0 fL Mean Corpuscular Hemoglobin 30.4 28.0-32.0 pg Mean Corpuscular Hemoglobin Concent 33.7 32.0-36.0 g/dL Red Cell Distribution Width 14.8 H 11.8-14.3 % Platelet Count 374 140-450 10^3/uL Mean Platelet Volume 8.5 6.9-10.8 fL Neutrophils (%) (Auto) 64.7 37.0-80.0 % Lymphocytes (%) (Auto) 17.9 10.0-50.0 % Monocytes (%) (Auto) 11.1 0.0-12.0 % Eosinophils (%) (Auto) 5.5 0.0-7.0 % Basophils (%) (Auto) 0.8 0.0-2.0 % Neutrophils # (Auto) 6.9 1.6-8.6 10 ^3/uL Lymphocytes # (Auto) 1.9 0.4-5.4 10 ^3/uL Monocytes # (Auto) 1.2 0-1.3 10 ^3/uL Eosinophils # (Auto) 0.6 0-0.8 10 ^3/uL Basophils # (Auto) 0.1 0-0.2 10 ^3/uL Nucleated Red Blood Cells 0.1 % Sodium Level 137 136-145 mmol/L Potassium Level 4.6 3.5-5.1 mmol/L Chloride Level 108 H 98-107 mmol/L Carbon Dioxide Level 21 20-31 mmol/L Anion Gap 8 5-15 Blood Urea Nitrogen 58 H 9-23 mg/dL Creatinine 4.91 H 0.700-1.30 mg/dL Glomerular Filtration Rate Calc 13 >90 mL/min BUN/Creatinine Ratio 11.8 10.0-20.0 Serum Glucose 100 74-106 mg/dL Calcium Level 9.5 8.7-10.4 mg/dL B-Type Natriuretic Peptide 384.06 0-100 pg/mL Urine Color Light-yellow Yellow Urine Clarity Clear Clear Urine pH 6.0 5.0-9.0 Urine Specific [place] 1.012 1.001-1.035 Urine Protein 3+ H Negative Urine Ketones Negative Negative Urine Blood 1+ H Negative /uL Urine Nitrite Negative Negative Urine Bilirubin Negative Negative Urine Urobilinogen Normal Negative mg/dL Urine Leukocyte Esterase Negative Negative /uL Urine RBC 3 0 - 3 /hpf Urine WBC 2 0 - 3 /hpf Urine Squamous Epithelial Cells Few <5 /hpf Urine Bacteria Few H None Seen /hpf Urine Hyaline Casts Few 0 - 2 /lpf Urine Glucose 1+ H Normal mg/dL ORDERING PHYSICIAN: ROC ROACH MD PROCEDURE(s): CXR2 - CHEST TWO VIEWS ROUTINE REASON: SOB ORDER NUMBER(s): [id number], ACCESSION NUMBER(s): [id number] CHEST RADIOGRAPH Indication: SOB Technique: Frontal and lateral view of the chest was obtained Comparison: XY CHEST TWO VIEWS ROUTINE on DOS: 01/15/23 FINDINGS: Lines and Tubes: None Lungs: Congestion Pleura: Small bilateral pleural effusions No pneumothorax. Cardiomediastinal contours: Unremarkable Bones: Unremarkable IMPRESSION: Pulmonary edema ATED BY: LORNE FULLER MD DICTATED DATE/TIME: 09/13/24 105 SIGNED BY: LORNE FULLER MD SIGNED DATE/TIME: 09/13/24 105 CC: Assessment/Plan Assessment/Plan Shortness of breaths due to CHF exacerbation rule out PE---patient complaint of shortness of breath associated with chest tightness, cough and bilateral lower extremity edema. Shortness of breath x3 weeks progressively worse in the past week Elevated BP upon arrival 194/100 Patient with history of CKD, CVA no deficit, type 2 DM, hyperlipidemia, hypertension, NH and PTCA Currently on 2 L nasal cannula as SpO2 has been less than 92% Admit to telemetry unit for further monitoring Reviewed CBC which is normal Reviewed troponin 54, 56 Reviewed BMP creatinine 4.91 increased from 3.64 in July 22, 2024 Reviewed chest x-ray shows pulmonary edema Ordered BNP pending Order D-dimer pending If elevated we will need to order V/Q scan Heparin subQ b.i.d. Reviewed previous echo performed in July 22, 2024 shows EF less than 40%- currently on hydrochlorothiazide Consult Dr. Coley as this is his patient Strict I and O Albuterol q.2h p.r.n. shortness of breath ? DVT Ordered bilateral lower extremity Doppler study pending Type 2 DM Hold metformin for now Regular insulin mild SS a.c. and HS Accu-Cheks per protocol Cardiac/1800 ADA diet Hypertension-uncontrolled Hydralazine 10 mg IV push q.6 hours p.r.n. SBP greater than 160 mmHg Continue antihypertensive agent metoprolol Continue to monitor Hyperlipidemia Continue atorvastatin as prescribed CKD Avoid nephrotoxic agent Consult Dr. Quintero for evaluation and recommendation Reconcile home medication DVT prophylaxis PUD prophylaxis not indicated no history of GERD Labs in a.m. 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 Quintero Group CONS 09/13/24 Transmitted -[place] 15:22 Hydralazine Injection PHA 09/13/24 Logged (Apresoline Inject 15:30 Albuterol Medneb PHA 09/13/24 Logged (Ventolin Medneb) 15:30 Admit ADMIT 09/13/24 Transmitted 15:22 2 Gm Sodium Diet DIET 09/13/24 Transmitted Dinner Complete Blood Count LAB 09/14/24 Verified 04:00 Comprehensive LAB 09/14/24 Verified Metabolic Panel 04:00 Condition: Fair [facility] 09/13/24 In Process 15:22 Acetaminophen Tablet [facility] 09/13/24 Logged (Tylenol Tablet) 15:30 Bedrest With Bathroom [facility] 09/13/24 In Process Privileg 15:22 Nitroglycerin PHA 09/13/24 Logged Sublingual (Ntrostat 15:30 Morphine Sulfate PHA 09/13/24 Logged Injection 15:30 Stat Ekg For Chest [facility] 09/13/24 In Process Pain 15:22 Notify Of Changes [facility] 09/13/24 In Process From Base 15:22 Wharf Tally Clerk For [facility] 09/13/24 In Process 24 Hours 15:22 Emergency Dysrhythmia [facility] 09/13/24 In Process Protocol 15:22 Rhythm Strips Once [facility] 09/13/24 In Process Every Shift 15:22 Oxygen By Nasal RT 09/13/24 Transmitted Cannula 15:22 Bilat Lower Dvt US 09/13/24 Logged 15:22 D-Dimer LAB 09/13/24 Logged 15:22 Communication Order ORDERS 09/13/24 Transmitted 15:22 Heparin Sodium PHA 09/13/24 Logged (Porcine) 22:00 Glucose Blood PHA 09/13/24 Logged (Accu-Chek Comfort 17:00 Insulin R (Human) PHA 09/13/24 Logged (Insulin R) 17:00 Dextrose 50% Syringe PHA 09/13/24 Logged 15:30 Aspirin Enteric PHA 09/14/24 Logged Coated Tablet 10:00 Atorvastatin (Lipitor) PHA 09/13/24 Logged 22:00 Clopidogrel Bisulfate PHA 09/14/24 Logged (Plavix) 10:00 Ergocalciferol PHA 09/13/24 Logged (Vitamin D 50,000 15:30 Metoprolol Xl PHA 09/14/24 Logged Succinate (Toprol Xl) 10:00 (NF) PHA 09/14/24 Logged Hydrochlorothiazide 10:00 Date of Service: Sep 13, 2024 Billing Provider: ANNA AMIN Common Visit Codes: [id number] INP/OBS CARE (HIGH) ANNA AMINP Sep 13, 2024 15:41
[2024-09-13 16:22] VITALS: BP 161/89; PULSE 94; RESP 18; TEMP 97.8; O2SAT 98
--- NOTE | 2024-09-13 16:39 | DVH ---
Procedure: US BiLat Lower DVT Study Date and Requested Time: 09/13/2024 03:51 PM History: dvt Comparison: US BILAT LOWER DVT on DOS: 07/04/24 Technique: Multiple high resolution more[place]-scale images with and without compression obtained of the bi lateral lower extremity veins, including the common femoral vein, deep femoral vein, proximal mid and distal superficial femoral vein, and popliteal vein. Additional limited images of the greater saphen ous vein also obtained. Augmentation performed as indicated. Color and spectral doppler flow images o btained as indicated. Findings: No visible intraluminal venous thrombus. No evidence of incompressibility or abnormal color or spectr al Doppler flow visualized in the bilateral lower extremity veins including, the common femoral vein, deep femoral vein, proximal mid and distal superficial femoral vein, and popliteal vein. Greater sap henous vein grossly unremarkable. Impression: No sonographic evidence of bilateral lower extremity deep venous thrombosis.
[2024-09-13] MEDS: InsuLIN REG 1unit/0.01ml Soln (100units/ml) SC SCH (17:00)
--- NOTE | 2024-09-13 17:19 | DVH ---
EXAM: US KIDNEY HISTORY: MARJAN COMPARISON: None TECHNIQUE: Real-time ultrasound performed utilizing grayscale and color techniques. FINDINGS: RIGHT KIDNEY: 10 cm in length. No hydronephrosis or nephrolithiasis. No suspicious lesions identif ied. LEFT KIDNEY: 10 cm in length. No hydronephrosis or nephrolithiasis. No suspicious lesions identifi ed. BLADDER: No mural thickening or focal lesion. Prevoid volume is 278 ML. Postvoid volume was not obt ained. The bilateral ureteral jets are not observed. OTHER: None. IMPRESSION: 1. No significant abnormality identified.
[2024-09-13] MEDS: ACCU-CHEK COMFORT CURVE STRIP VI SCH (17:20)
[2024-09-13] MEDS: hydrALAZINE HCL 20 MG/ML VL IV PRN (18:26)
[2024-09-13 21:15] VITALS: O2SAT 95
[2024-09-13] MEDS: ATORVASTATIN 20 MG TAB PO SCH (21:21)
[2024-09-13] MEDS: HEPARIN SODIUM (PORCINE) 5000 UNITS/ML 1ML VIAL SC SCH (21:22)
[2024-09-13 21:45] VITALS: BP 161/95; PULSE 106; RESP 20; TEMP 98.3; O2SAT 97
[2024-09-13 22:40] VITALS: BP 152/93; PULSE 106; RESP 19; TEMP 98; O2SAT 97
[2024-09-14] VITALS (11 sets, daily range): BP systolic 138–166; BP diastolic 76–97; PULSE 70–96; RESP 14–20; TEMP 97.6–98.1; O2SAT 96–99
[2024-09-14] MEDS: ACETAMINOPHEN 325 MG TAB PO PRN (05:02)
[2024-09-14] MEDS: ERGOCALCIFEROL 50,000 UNIT(1.25MG) CAP PO SCH (05:12)
[2024-09-14 05:44] LABS: Basophils # (auto) 0.1 10 ^3/uL (0-0.2); Basophils % (auto) 0.7 % (0.0-2.0); Eosinophils # (auto) 0.5 10 ^3/uL (0-0.8); Eosinophils % (auto) 4.9 % (0.0-7.0); Hematocrit 30.7 % (41.0-53.0); Hemoglobin 10.1 g/dL (13.5-17.5); Lymphocytes # (auto) 1.8 10 ^3/uL (0.4-5.4); Lymphocytes % (auto) 16.7 % (10.0-50.0); Mean Corpuscular Hemoglobin 29.6 pg (28.0-32.0); Mean Corpuscular Volume 89.8 fL (80.0-100.0); Monocytes # (auto) 1.4 10 ^3/uL (0-1.3); Monocytes % (auto) 13.6 % (0.0-12.0); Neutrophils # (auto) 6.8 10 ^3/uL (1.6-8.6); Neutrophils % (auto) 64.1 % (37.0-80.0); Platelet Count (auto) 356 10^3/uL (140-450); Red Blood Cells 3.42 10^6/uL (4.5-5.90); Red Cell Distribution Width 14.9 % (11.8-14.3); White Blood Cell 10.6 10^3/uL (4.4-10.8)
[2024-09-14 05:56] LABS: Alanine Aminotransferase 16 U/L (7-40); Albumin 3.6 g/dL (3.2-4.8); Alkaline Phosphatase 75 U/L (46-116); Anion Gap 9 (5-15); Aspartate Aminotransferase 22 U/L (13-40); BUN/Creatinine Ratio 12.1 (10.0-20.0); Calcium 9.5 mg/dL (8.7-10.4); Carbon Dioxide 21 mmol/L (20-31); Glucose 88 mg/dL (74-106); Potassium 4.8 mmol/L (3.5-5.1); Sodium 138 mmol/L (136-145)
[2024-09-14 05:57] LABS: Bilirubin, Total 0.5 mg/dL (0.2-1.0); Total Protein 6.4 g/dL (5.7-8.2)
[2024-09-14 05:59] LABS: Blood Urea Nitrogen 61 mg/dL (9-23); Chloride 108 mmol/L (98-107)
[2024-09-14] MEDS: METOPROLOL SUCCINATE XL 50 MG TAB PO SCH (10:17)
[2024-09-14] MEDS: CLOPIDOGREL BISULFATE 75 MG TAB PO SCH (10:17)
[2024-09-14] MEDS: ASPirin-EC 81 mg tab PO SCH (10:17)
[2024-09-14] MEDS: hydroCHLOROthiazide 25 MG TAB PO SCH ×2 (10:19→15:00)
[2024-09-14] MEDS: FUROSEMIDE 40 MG/4 ML VIAL IV ONE (10:19)
--- NOTE | 2024-09-14 10:49 | ECG ---
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
[2024-09-14 12:26] LABS: Rapid Influenza A Negative (Negative); Rapid Influenza B Negative (Negative)
[2024-09-14 12:35] LABS: COVID19 ANTIGEN SOFIA FIA NEGATIVE (NEGATIVE)
[2024-09-14] MEDS ORDERED: FUROSEMIDE 100 MG/10ML VIAL IV SCH (15:00)
--- NOTE | 2024-09-14 15:01 | DVHINCON2 ---
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 Patient has been lost to follow up has not seen outpatient. He reports that his son had a recent flu and he developed a cold. This is worsened to progressive leg swelling and shortness of breath. He presents to the hospital with shortness of breath. He is found to have fluid overload. Nephrology consulted due to elevated creatinine level. Allergies: Coded Allergies: NO KNOWN ALLERGIES (Unverified , 04/30/16) Home Meds Active Scripts Lisinopril (Lisinopril) 10 Mg Tab, 10 MG PO DAILY for 30 Days, #30 TAB Prov:RENAN POLLOCK RESIDENT 07/09/24 Metoprolol Succinate (Metoprolol Succinate Er) 50 Mg Tab, 1 TAB PO DAILY for 30 Days, #30 TAB 5 Refills Prov:RENAN POLLOCK RESIDENT 07/07/24 Atorvastatin Calcium (ATORVASTATIN CALCIUM) 20 Mg Tab, 20 MG PO HS for 30 Days, #30 TAB 3 Refills Prov:ILYA DAY DO 06/20/24 Clopidogrel Bisulfate (Plavix) 75 Mg Tab, 1 TAB PO DAILY, #90 TAB 1 Refill Prov:JONATHAN ALBERT MD 01/21/23 Aspirin (ASPIRIN/ENTERIC) 81 Mg Tab, 81 MG PO DAILY, #90 TAB Prov:JONATHAN ALBERT MD 01/21/23 Reported Medications Hydrochlorothiazide (Hydrochlorothiazide) 12.5 Mg Cap, 1 CAP PO DAILY for 30 Days, #30 07/06/24 Ergocalciferol (Vitamin D (Ergocalciferol) 50,000 Unit Cap, 1 CAP PO QWEEKLY for 28 Days, #4 07/06/24 Albuterol Sulfate (Albuterol Sulfate Hfa) 108 Mcg/Act Aer, 2 PUFF INH 06/20/24 Metformin Hydrochloride (Metformin Hcl) 850 Mg Tab, 850 MG PO BID for 30 Days, MG 01/15/23 Current Medications Current Medications Medications (Trade) Dose Ordered Sig/Tai Route PRN Reason Start Time Stop Time Status Last Admin Hydralazine HCl (Apresoline Injection) 10 mg Q6HP PRN IV SBP>150 09/13/24 15:30 09/14/24 05:02 Albuterol (Ventolin Medneb) 2.5 mg Q2HPRN PRN NEB SHORTNESS OF BREATH 09/13/24 15:30 Acetaminophen (Tylenol Tablet) 650 mg Q6HP PRN PO PAIN SCALE 1-3 OR TEMP>100.4 09/13/24 15:30 09/14/24 05:02 Nitroglycerin (Ntrostat Sublingual) 0.4 mg Q5MINP PRN SL FOR CHEST PAIN 09/13/24 15:30 Morphine Sulfate 2 mg Q30M PRN IV FOR CHEST PAIN 09/13/24 15:30 Heparin Sodium (Porcine) 5,000 units Q12HR SC 09/13/24 22:00 09/14/24 10:20 Diagnostic Test (Pha) (Accu-Chek Comfort Curve T) 1 strip ACHS 09/13/24 17:00 09/14/24 11:48 Insulin Human Regular (InsuLIN R) ACHS SC 09/13/24 17:00 09/14/24 11:48 Dextrose 50 ml UD PRN IV Blood Sugar LESS THAN 60 09/13/24 15:30 Aspirin (Ecotrin Enteric Coated Tablet) 81 mg DAILY PO 09/14/24 10:00 09/14/24 10:17 Atorvastatin Calcium (Lipitor) 20 mg HS PO 09/13/24 22:00 09/13/24 21:21 Clopidogrel Bisulfate (Plavix) 75 mg DAILY PO 09/14/24 10:00 09/14/24 10:17 Ergocalciferol (Vitamin D 50,000 Unit) 50,000 unit QWEEKLY PO 09/13/24 15:30 09/14/24 05:12 Metoprolol Succinate (Toprol Xl) 50 mg DAILY PO 09/14/24 10:00 09/14/24 10:17 Hydrochlorothiazide (hydroCHLOROthiazide TABLET) 12.5 mg DAILY PO 09/14/24 10:00 09/14/24 10:19 Family History: Alzheimer's disease G8 MOTHER, Depression G8 FATHER, Diabetes mellitus G8 FATHER, Hypertension G8 MOTHER, Review of Systems Swelling and shortness of breath H&P Exam Vital Signs/I&O Vital Sign Date Time Temp Pulse Resp B/P (MAP) Pulse Ox O2 Delivery O2 Flow Rate FiO2 09/14/24 13:00 97.7 70 16 138/76 (96) 98 97.7 09/14/24 10:50 Room Air 09/14/24 10:50 0 21 Intake and Output 09/13/24 09/14/24 19:00 07:00 Intake Total 900 ml Output Total 450 ml Balance 450 ml Intake Oral 900 ml Output Urine Total 450 ml # Bowel Movements 1 Physical Exam Middle-aged male Not in respiratory distress Abdomen is soft Has bilateral 3+ pitting edema ctab/l Labs/Diagnostic Data Labs/Diagnostic Data Laboratory Tests Test 09/14/24 11:11 09/14/24 10:00 09/14/24 05:07 09/14/24 04:34 Range/Units POC Glucose 156 H 85 70-106 mg/dl Influenza Type A Antigen Negative Negative Influenza Type B Antigen Negative Negative SARS-CoV-2 Antigen (Rapid) Negative NEGATIVE White Blood Count 10.6 4.4-10.8 10^3/uL Red Blood Count 3.42 L 4.5-5.90 10^6/uL Hemoglobin 10.1 L 13.5-17.5 g/dL Hematocrit 30.7 L 41.0-53.0 % Mean Corpuscular Volume 89.8 80.0-100.0 fL Mean Corpuscular Hemoglobin 29.6 28.0-32.0 pg Mean Corpuscular Hemoglobin Concent 33.0 32.0-36.0 g/dL Red Cell Distribution Width 14.9 H 11.8-14.3 % Platelet Count 356 140-450 10^3/uL Mean Platelet Volume 8.5 6.9-10.8 fL Neutrophils (%) (Auto) 64.1 37.0-80.0 % Lymphocytes (%) (Auto) 16.7 10.0-50.0 % Monocytes (%) (Auto) 13.6 H 0.0-12.0 % Eosinophils (%) (Auto) 4.9 0.0-7.0 % Basophils (%) (Auto) 0.7 0.0-2.0 % Neutrophils # (Auto) 6.8 1.6-8.6 10 ^3/uL Lymphocytes # (Auto) 1.8 0.4-5.4 10 ^3/uL Monocytes # (Auto) 1.4 H 0-1.3 10 ^3/uL Eosinophils # (Auto) 0.5 0-0.8 10 ^3/uL Basophils # (Auto) 0.1 0-0.2 10 ^3/uL Nucleated Red Blood Cells 0.0 % Sodium Level 138 136-145 mmol/L Potassium Level 4.8 3.5-5.1 mmol/L Chloride Level 108 H 98-107 mmol/L Carbon Dioxide Level 21 20-31 mmol/L Anion Gap 9 5-15 Blood Urea Nitrogen 61 H 9-23 mg/dL Creatinine 5.06 H 0.700-1.30 mg/dL Glomerular Filtration Rate Calc 13 >90 mL/min BUN/Creatinine Ratio 12.1 10.0-20.0 Serum Glucose 88 74-106 mg/dL Calcium Level 9.5 8.7-10.4 mg/dL Total Bilirubin 0.5 0.2-1.0 mg/dL Aspartate Amino Transferase (AST) 22 13-40 U/L Alanine Aminotransferase (ALT) 16 7-40 U/L Alkaline Phosphatase 75 46-116 U/L Total Protein 6.4 5.7-8.2 g/dL Albumin 3.6 3.2-4.8 g/dL Thyroid Stimulating Hormone (TSH) 1.54 0.55-4.78 uIU/mL Test 09/13/24 21:25 09/13/24 17:23 09/13/24 16:23 09/13/24 14:31 Range/Units POC Glucose 170 H 96 70-106 mg/dl D-Dimer, Quantitative 3.58 H 0.0-0.49 mg/L FEU Troponin I High Sensitivity 49 </=54 ng/L Test 09/13/24 12:09 09/13/24 10:56 09/13/24 10:28 Range/Units Troponin I High Sensitivity 56 *H 54 </=54 ng/L White Blood Count 10.6 4.4-10.8 10^3/uL Red Blood Count 3.47 L 4.5-5.90 10^6/uL Hemoglobin 10.5 L 13.5-17.5 g/dL Hematocrit 31.3 L 41.0-53.0 % Mean Corpuscular Volume 90.3 80.0-100.0 fL Mean Corpuscular Hemoglobin 30.4 28.0-32.0 pg Mean Corpuscular Hemoglobin Concent 33.7 32.0-36.0 g/dL Red Cell Distribution Width 14.8 H 11.8-14.3 % Platelet Count 374 140-450 10^3/uL Mean Platelet Volume 8.5 6.9-10.8 fL Neutrophils (%) (Auto) 64.7 37.0-80.0 % Lymphocytes (%) (Auto) 17.9 10.0-50.0 % Monocytes (%) (Auto) 11.1 0.0-12.0 % Eosinophils (%) (Auto) 5.5 0.0-7.0 % Basophils (%) (Auto) 0.8 0.0-2.0 % Neutrophils # (Auto) 6.9 1.6-8.6 10 ^3/uL Lymphocytes # (Auto) 1.9 0.4-5.4 10 ^3/uL Monocytes # (Auto) 1.2 0-1.3 10 ^3/uL Eosinophils # (Auto) 0.6 0-0.8 10 ^3/uL Basophils # (Auto) 0.1 0-0.2 10 ^3/uL Nucleated Red Blood Cells 0.1 % Sodium Level 137 136-145 mmol/L Potassium Level 4.6 3.5-5.1 mmol/L Chloride Level 108 H 98-107 mmol/L Carbon Dioxide Level 21 20-31 mmol/L Anion Gap 8 5-15 Blood Urea Nitrogen 58 H 9-23 mg/dL Creatinine 4.91 H 0.700-1.30 mg/dL Glomerular Filtration Rate Calc 13 >90 mL/min BUN/Creatinine Ratio 11.8 10.0-20.0 Serum Glucose 100 74-106 mg/dL Calcium Level 9.5 8.7-10.4 mg/dL B-Type Natriuretic Peptide 384.06 0-100 pg/mL Urine Color Light-yellow Yellow Urine Clarity Clear Clear Urine pH 6.0 5.0-9.0 Urine Specific Neptune 1.012 1.001-1.035 Urine Protein 3+ H Negative Urine Ketones Negative Negative Urine Blood 1+ H Negative /uL Urine Nitrite Negative Negative Urine Bilirubin Negative Negative Urine Urobilinogen Normal Negative mg/dL Urine Leukocyte Esterase Negative Negative /uL Urine RBC 3 0 - 3 /hpf Urine WBC 2 0 - 3 /hpf Urine Squamous Epithelial Cells Few <5 /hpf Urine Bacteria Few H None Seen /hpf Urine Hyaline Casts Few 0 - 2 /lpf Urine Glucose 1+ H Normal mg/dL Assessment Acute kidney injury hemodynamically mediated Chronic kidney disease stage IV with progression? Versus MARJAN on CKD Hypertension Diabetes Proteinuria Decompensated heart failure Fluid restriction Increase diuretic therapy Recommend achieved daily negative fluid balance Obtain renal panel obtain urine protein cr ratio Us kidney unremarkable I have explained patient has advanced kidney disease require close outpatient follow-up in the possibility of dialysis in the near future. Plan discussed with: Patient BRUNO MEJIAS MD Sep 14, 2024 15:01
--- NOTE | 2024-09-14 15:20 | DVHPNRES ---
Progress Note Date Seen: Sep 14, 2024 Resident Creating Document: BLUE CORONAROSSY RESIDENT Medical Necessity Reason Pt with a Central, PICC or Fol: No Subjective Review of Systems Patient is a 53-year-old male with a past medical history of coronary artery disease status post PTCA with a 1 LIBORIO in 2015, CKD stage 4, hypertension, hyperlipidemia type 2 diabetes mellitus came to the ED with a chief complaint of shortness of breath since the last 3 days. Patient reported about a week ago his son got flu-like illness following which he also started coughing with the associated yellowish phlegm, no blood and had chills, body aches. 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 Patient reports he is on heart failure medication and recently was out of his medication Lasix. Patient reported orthopnea and had to use 2-3 pillows to sleep since the last 3-4 days. Patient denied nausea, vomiting, abdominal pain. Past surgical history: PTCA Social history: Patient lives with the family and denies smoking, alcohol, drug use Home medications: Aspirin, clopidogrel, atorvastatin 20 mg q.d., HCTZ 12.5 mg q.d., metoprolol succinate 50 mg q.d Review of systems At the time of examination patient reports that he feels much better than yesterday in terms of his breathing, no shortness a breath at rest on room air, denied chest pain, palpitations, nausea, vomiting, diarrhea. Objective vital signs Vital Sign Date Time Temp Pulse Resp B/P (MAP) Pulse Ox O2 Delivery O2 Flow Rate FiO2 09/14/24 13:00 97.7 70 16 138/76 (96) 98 97.7 09/14/24 10:50 Room Air 09/14/24 10:50 0 21 Total Intake and Output 09/13/24 09/13/24 09/14/24 15:00 23:00 07:00 Intake Total 900 ml Output Total 450 ml Balance 450 ml medications Current Medications Medications Dose Ordered Sig/Tai Route Start Time Stop Time Status Last Admin Dose Admin Hydralazine HCl 10 mg Q6HP PRN IV 09/13/24 15:30 09/14/24 05:02 10 MG Albuterol 2.5 mg Q2HPRN PRN NEB 09/13/24 15:30 Acetaminophen 650 mg Q6HP PRN PO 09/13/24 15:30 09/14/24 05:02 650 MG Nitroglycerin 0.4 mg Q5MINP PRN SL 09/13/24 15:30 Morphine Sulfate 2 mg Q30M PRN IV 09/13/24 15:30 Heparin Sodium (Porcine) 5,000 units Q12HR SC 09/13/24 22:00 09/14/24 10:20 5,000 UNITS Diagnostic Test (Pha) 1 strip ACHS 09/13/24 17:00 09/14/24 11:48 1 STRIP Insulin Human Regular ACHS SC 09/13/24 17:00 09/14/24 11:48 2 UNITS Dextrose 50 ml UD PRN IV 09/13/24 15:30 Aspirin 81 mg DAILY PO 09/14/24 10:00 09/14/24 10:17 81 MG Atorvastatin Calcium 20 mg HS PO 09/13/24 22:00 09/13/24 21:21 20 MG Clopidogrel Bisulfate 75 mg DAILY PO 09/14/24 10:00 09/14/24 10:17 75 MG Ergocalciferol 50,000 unit QWEEKLY PO 09/13/24 15:30 09/14/24 05:12 50,000 UNIT Metoprolol Succinate 50 mg DAILY PO 09/14/24 10:00 09/14/24 10:17 50 MG Hydrochlorothiazide 12.5 mg BID PO 09/14/24 15:00 UNV Furosemide 80 mg BIDD IV 09/14/24 15:00 UNV Examination Physical Examination Constitutional: Patient was alert and oriented to time, place and person and does not appear to be in acute distress. Gen - no pallor, no icterus, no cyanosis, no clubbing, no LAD, 3+ pitting edema up to the mid shins in the bilateral lower extremities. Skin - Patients skin is warm and dry. HEENT - normocephalic, atraumatic, moist mucous membranes. Neck - full ROM, no LAD, no JVD Pulmonary - B/L vesicular breath sounds with a minimal bibasilar crackles and decreased breath sounds in the lower lobes, no wheezing, cardiovascular - normal S1,S2 heard. no murmurs heard. GI - soft abdomen without tenderness to palpation. no hepatospleenomegaly. Bowel sounds normoactive Neurological - Bilateral upper extremity strength 5/5, bilateral lower extremity strength 5/5, no facial droop, normal speech, no tremor, no sensory deficiets. laboratory and microbiology Laboratory Tests 09/14/24 04:34 Test 09/14/24 04:34 Range/Units Serum Glucose 88 74-106 mg/dL Problem List/Assessment/Plan Problem List/Assessment/Plan Assessment Acute hypoxic respiratory failure likely due to CHF exacerbation Acute exacerbation of heart failure with reduced ejection fraction H/O Coronary artery disease s/p PTCA Ischemic cardiomyopathy PE less likely - was on 2 L oxygen currently on room air - furosemide 100 mg b.i.d. IV - metoprolol succinate 50 mg daily - hydrochlorothiazide 12.5 mg b.i.d. p.o. - aspirin and Plavix - atorvastatin 20 mg HS - wells score for PE < 4, on heparin 5000 units SC q.12 hours MARJAN on CKD stage 4 likely prerenal hemodynamically mediated - urine sodium, creatinine for calculation of FENa pending - on diuresis with furosemide and hydrochlorothiazide - strict I&O - maintain fluid restrictions - renal standard diet - nephrology consulted Type 2 diabetes mellitus with hyperglycemia - on mild insulin sliding scale - goal blood glucose 140-180 mg/dl Goals of care discussed with the patient for over 23 minutes. Full code Plan discussed with Dr. Chapin Plan discussed with: Patient My Orders My Orders Orders - FLAVIO CORONA Procedure Category Date Status Time Renal DIET 09/14/24 Transmitted Standard(2gna,3gk,Lopho) Breakfast Strict I & O MITESH 09/14/24 In Process 08:47 Code Status CODE 09/14/24 Transmitted 09:59 Date of Service: Sep 14, 2024 Billing Provider: DYLLAN CHAPIN MD Common Visit Codes: [id number] INP/OBS CARE(HIGH) FLAVIO CORONA Sep 14, 2024 15:19 DYLLAN CHAPIN MD Sep 17, 2024 15:32
[2024-09-14] MEDS: FUROSEMIDE 100 MG/10ML VIAL IV SCH (18:22)
[2024-09-15] VITALS (8 sets, daily range): BP systolic 156–180; BP diastolic 86–104; PULSE 82–96; RESP 16–20; TEMP 98–98.3; O2SAT 96–99
[2024-09-15 07:34] LABS: Basophils # (auto) 0.1 10 ^3/uL (0-0.2); Eosinophils # (auto) 0.8 10 ^3/uL (0-0.8); Eosinophils % (auto) 9.7 % (0.0-7.0); Hematocrit 28.3 % (41.0-53.0); Hemoglobin 9.4 g/dL (13.5-17.5); Lymphocytes # (auto) 2.5 10 ^3/uL (0.4-5.4); Lymphocytes % (auto) 29.3 % (10.0-50.0); Mean Corpuscular Hemoglobin 30.3 pg (28.0-32.0); Mean Corpuscular Hgb Conc. 33.3 g/dL (32.0-36.0); Monocytes # (auto) 1.3 10 ^3/uL (0-1.3); Monocytes % (auto) 15.3 % (0.0-12.0); Neutrophils # (auto) 3.8 10 ^3/uL (1.6-8.6); Neutrophils % (auto) 44.7 % (37.0-80.0); Platelet Count (auto) 326 10^3/uL (140-450); Red Cell Distribution Width 14.8 % (11.8-14.3); White Blood Cell 8.5 10^3/uL (4.4-10.8)
[2024-09-15 07:40] LABS: Potassium 4.2 mmol/L (3.5-5.1); Sodium 138 mmol/L (136-145)
[2024-09-15 07:41] LABS: Anion Gap 10 (5-15); Calcium 9.4 mg/dL (8.7-10.4); Carbon Dioxide 21 mmol/L (20-31)
[2024-09-15 07:46] LABS: BUN/Creatinine Ratio 11.7 (10.0-20.0); Glucose 88 mg/dL (74-106)
[2024-09-15 07:47] LABS: Blood Urea Nitrogen 64 mg/dL (9-23); Chloride 107 mmol/L (98-107)
[2024-09-15 07:54] LABS: Phosphorus 5.4 mg/dL (2.4-5.1)
[2024-09-15] MEDS: ERGOCALCIFEROL 50,000 UNIT(1.25MG) CAP PO SCH (11:00)
--- NOTE | 2024-09-15 11:03 | DVHPN2 ---
Progress Note Date Seen: Sep 15, 2024 Medical Necessity Reason Pt with a Central, PICC or Fol: No Subjective Patient reports: Feels better Objective vital signs Vital Sign Date Time Temp Pulse Resp B/P (MAP) Pulse Ox O2 Delivery O2 Flow Rate FiO2 09/15/24 09:20 91 168/104 09/15/24 09:00 98.2 16 96 98.2 09/15/24 08:29 Room Air* 0 21 Total Intake and Output 09/14/24 09/14/24 09/15/24 14:59 22:59 06:59 Intake Total 680 ml 680 ml Output Total 1250 ml 1100 ml Balance -570 ml -420 ml medications Current Medications Medications Dose Ordered Sig/Tai Route Start Time Stop Time Status Last Admin Dose Admin Acetaminophen 650 mg Q6HP PRN PO 09/13/24 15:30 09/14/24 05:02 650 MG Nitroglycerin 0.4 mg Q5MINP PRN SL 09/13/24 15:30 Morphine Sulfate 2 mg Q30M PRN IV 09/13/24 15:30 Heparin Sodium (Porcine) 5,000 units Q12HR SC 09/13/24 22:00 09/15/24 09:40 5,000 UNITS Diagnostic Test (Pha) 1 strip ACHS 09/13/24 17:00 09/15/24 05:14 1 STRIP Insulin Human Regular ACHS SC 09/13/24 17:00 09/14/24 17:15 2 UNITS Dextrose 50 ml UD PRN IV 09/13/24 15:30 Aspirin 81 mg DAILY PO 09/14/24 10:00 09/15/24 09:18 81 MG Atorvastatin Calcium 20 mg HS PO 09/13/24 22:00 09/14/24 21:32 20 MG Clopidogrel Bisulfate 75 mg DAILY PO 09/14/24 10:00 09/15/24 09:19 75 MG Ergocalciferol 50,000 unit QWEEKLY PO 09/13/24 15:30 09/14/24 05:12 50,000 UNIT Metoprolol Succinate 50 mg DAILY PO 09/14/24 10:00 09/15/24 09:20 50 MG Hydrochlorothiazide 12.5 mg BID PO 09/14/24 15:00 09/15/24 09:19 12.5 MG Furosemide 100 mg BIDD IV 09/14/24 18:00 09/15/24 05:13 100 MG Examination: GENERAL:Normal, CVS:Abnormal, SKIN:Abnormal laboratory and microbiology Laboratory Tests 09/15/24 05:49 Test 09/15/24 05:49 Range/Units Serum Glucose 88 74-106 mg/dL Problem List/Assessment/Plan Problem List/Assessment/Plan Acute kidney injury hemodynamically mediated Chronic kidney disease stage IV with progression to ckd 5? Versus MARJAN on CKD 4 Hypertension Diabetes Proteinuria Decompensated heart failure increase BP meds Fluid restriction Increase diuretic therapy , dual diuretics to increase excretion . thiazide and loop diuretics ordered Recommend achieved daily negative fluid balance obtain urine protein cr ratio Us kidney unremarkable renal diet phos binder vitamin D I have explained patient has advanced kidney disease require close outpatient follow-up in the possibility of dialysis in the near future. Has renal clinic in Oct . Will not start inpatient dialysis at this time Plan discussed with: Patient My Orders My Orders Orders - BRUNO MEJIAS MD Procedure Category Date Status Time Hydrochlorothiazide PHA 09/14/24 In Process Tablet (Hydrochlorot 15:00 Urine LAB 09/14/24 Logged Protein/Creatinine Communication Order ORDERS 09/15/24 Transmitted 08:16 BRUNO MEJIAS MD Sep 15, 2024 11:03
[2024-09-15] MEDS ORDERED: BUM1T PO (11:54)
[2024-09-15] MEDS ORDERED: NIFE1TAB30 PO (11:54)
[2024-09-15] MEDS ORDERED: METO-289 PO (11:54)
[2024-09-15] MEDS ORDERED: HYDR25TA5 PO (11:54)
[2024-09-15] MEDS: amLODIPine BESYLATE 5 MG TAB PO SCH (12:10)
[2024-09-15 13:26] LABS: Urine Bacteria None Seen /hpf (None Seen)
[2024-09-15] MEDS ORDERED: METOPROLOL SUCCINATE XL 50 MG TAB PO ONE (13:30)
[2024-09-15 13:38] LABS: Urine Blood TRACE /uL (Negative); Urine Clarity Clear (Clear); Urine Color Colorless (Yellow); Urine Protein, UAD 2+ (Negative); Urine Specific Gravity 1.008 (1.001-1.035); Urine Squamous Epithelial Cell FEW /hpf (<5); Urine Urobilinogen Normal (Negative); Urine WBC <1 /hpf (0 - 3)
[2024-09-15] MEDS: METOPROLOL SUCCINATE XL 50 MG TAB PO ONE (13:45)
[2024-09-15 13:48] LABS: Protein, Urine 205.2 mg/dL (1-14)
[2024-09-15 13:50] LABS: Creatinine, Urine 27.48 mg/dL (30.0-125.0); Urine Protein/Creatinine Ratio 7.47
--- NOTE | 2024-09-15 21:00 | DVHDSRES ---
Discharge Summary Date of Admission Resident Creating Document: FLAVIO CORONA RESIDENT Sep 13, 2024 at 15:29 Date of Discharge: Sep 15, 2024 Admitting Diagnosis Shortness of breaths due to CHF exacerbation rule out PE ? DVT Type 2 DM Hypertension-uncontrolled Hyperlipidemia CKD Wounds: no wounds Labs/Diagnostic Data: Laboratory Results Test 09/15/24 13:00 09/15/24 05:49 09/15/24 05:16 09/14/24 10:00 Urine Color Colorless (Yellow) Urine Clarity Clear (Clear) Urine pH 6.0 (5.0-9.0) Urine Specific Lyle 1.008 (1.001-1.035) Urine Protein 2+ (Negative) Urine Ketones Negative (Negative) Urine Blood Trace /uL (Negative) Urine Nitrite Negative (Negative) Urine Bilirubin Negative (Negative) Urine Urobilinogen Normal mg/dL (Negative) Urine Leukocyte Esterase Negative /uL (Negative) Urine RBC 2 /hpf (0 - 3) Urine WBC <1 /hpf (0 - 3) Urine Squamous Epithelial Cells Few /hpf (<5) Urine Bacteria None seen /hpf (None Seen) Urine Creatinine 27.48 mg/dL (30.0-125.0) Urine Protein/Creatinine Ratio 7.47 Urine Sodium 126 mmol/L (40-220) Urine Glucose 1+ mg/dL (Normal) Urine Total Protein 205.2 mg/dL (1-14) White Blood Count 8.5 10^3/uL (4.4-10.8) Red Blood Count 3.10 10^6/uL (4.5-5.90) Hemoglobin 9.4 g/dL (13.5-17.5) Hematocrit 28.3 % (41.0-53.0) Mean Corpuscular Volume 91.0 fL (80.0-100.0) Mean Corpuscular Hemoglobin 30.3 pg (28.0-32.0) Mean Corpuscular Hemoglobin Concent 33.3 g/dL (32.0-36.0) Red Cell Distribution Width 14.8 % (11.8-14.3) Platelet Count 326 10^3/uL (140-450) Mean Platelet Volume 8.3 fL (6.9-10.8) Neutrophils (%) (Auto) 44.7 % (37.0-80.0) Lymphocytes (%) (Auto) 29.3 % (10.0-50.0) Monocytes (%) (Auto) 15.3 % (0.0-12.0) Eosinophils (%) (Auto) 9.7 % (0.0-7.0) Basophils (%) (Auto) 1.0 % (0.0-2.0) Neutrophils # (Auto) 3.8 10 ^3/uL (1.6-8.6) Lymphocytes # (Auto) 2.5 10 ^3/uL (0.4-5.4) Monocytes # (Auto) 1.3 10 ^3/uL (0-1.3) Eosinophils # (Auto) 0.8 10 ^3/uL (0-0.8) Basophils # (Auto) 0.1 10 ^3/uL (0-0.2) Nucleated Red Blood Cells 0.0 % Sodium Level 138 mmol/L (136-145) Potassium Level 4.2 mmol/L (3.5-5.1) Chloride Level 107 mmol/L (98-107) Carbon Dioxide Level 21 mmol/L (20-31) Anion Gap 10 (5-15) Blood Urea Nitrogen 64 mg/dL (9-23) Creatinine 5.49 mg/dL (0.700-1.30) Glomerular Filtration Rate Calc 12 mL/min (>90) BUN/Creatinine Ratio 11.7 (10.0-20.0) Serum Glucose 88 mg/dL (74-106) Hemoglobin A1c 6.5 % A1C (<5.7) Calcium Level 9.4 mg/dL (8.7-10.4) Phosphorus Level 5.4 mg/dL (2.4-5.1) Vitamin D 25-Hydroxy 36.9 ng/mL (30.0-100) Parathyroid Hormone (Intact) 138.1 pg/mL (18.4-80.1) POC Glucose 98 mg/dl (70-106) Influenza Type A Antigen Negative (Negative) Influenza Type B Antigen Negative (Negative) SARS-CoV-2 Antigen (Rapid) Negative (NEGATIVE) Test 09/14/24 04:34 09/13/24 16:23 09/13/24 14:31 09/13/24 10:56 Total Bilirubin 0.5 mg/dL (0.2-1.0) Aspartate Amino Transferase (AST) 22 U/L (13-40) Alanine Aminotransferase (ALT) 16 U/L (7-40) Alkaline Phosphatase 75 U/L (46-116) Total Protein 6.4 g/dL (5.7-8.2) Albumin 3.6 g/dL (3.2-4.8) Thyroid Stimulating Hormone (TSH) 1.54 uIU/mL (0.55-4.78) D-Dimer, Quantitative 3.58 mg/L FEU (0.0-0.49) Troponin I High Sensitivity 49 ng/L (</=54) B-Type Natriuretic Peptide 384.06 pg/mL (0-100) Test 09/13/24 10:28 Urine Hyaline Casts Few /lpf (0 - 2) Other Laboratory Tests 09/15/24 05:49 Brief Hx & Hospital Course: HPI Patient is a 53-year-old male with a past medical history of coronary artery disease status post PTCA with a 1 LIBORIO in 2015, CKD stage 4, hypertension, hyperlipidemia type 2 diabetes mellitus came to the ED with a chief complaint of shortness of breath since the last 3 days. Patient reported about a week ago his son got flu-like illness following which he also started coughing with the associated yellowish phlegm, no blood and had chills, body aches. 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 Patient reports he is on heart failure medication and recently was out of his medication Lasix. Patient reported orthopnea and had to use 2-3 pillows to sleep since the last 3-4 days. Patient denied nausea, vomiting, abdominal pain. Brief hospital course At the time of admission patient's oxygen saturation was was low and he was put on oxygen support via nasal cannula. Patient was volume overloaded with chest x-ray showing interstitial pulmonary edema and bilateral blunting of the CP angles with 3+ edema up to the mid shins. Patient also had MARJAN with the elevated serum creatinine and BUN following which nephrology were consulted. Patient was put on furosemide 100 mg b.i.d., hydrochlorothiazide 12.5 mg b.i.d. and the dose of metoprolol succinate was increased from 50 q.d. to 100 q.d.. Patient had a negative fluid balance of - 1L. Patient's breathing improved and he was taken off the oxygen support. The patient was reluctant to be under observation for 1 more day as yet to return to work otherwise was in danger of losing his job and then the patient was discharged with the discharge plan as follows with strict compliance. Discharge plan Patient was discharged home in stable condition New medications- Bumex 2.5 mg b.i.d., hydrochlorothiazide 12.5 mg b.i.d. and metoprolol succinate 100 mg q.d. Take hydrochlorothiazide 30 minutes before the Bumex Medications held- lisinopril, Plavix Continued on other home medications. maintain fluid restriction of 1200 mL per day Follow up in the discharge clinic in 1 week Follow up in the Nephrology outpatient clinic in 1 week Consults/Reason for consult No consultation Operations or Procedures None Condition at Discharge: Fair Final Diagnosis/Problems List Acute hypoxic respiratory failure likely due to CHF exacerbation Acute exacerbation of heart failure with reduced ejection fraction H/O Coronary artery disease s/p PTCA Ischemic cardiomyopathy PE less likely MARJAN on CKD stage 4 likely prerenal hemodynamically mediated Type 2 diabetes mellitus with hyperglycemia Discharge Disposition: Home Discharge Instruct/Medications Diet: Renal Diet comment: Fluid restrictions- total fluid 1200ml/day Activity: No Restrictions, As Tolerated Follow Up/Referral: Follow up in the discharge clinic in one week Follow up with the process stripper in 1-2 weeks Follow up in the nephrology outpatient clinic in one week Medications: As per EMR Discharge Statement: "Patient was advised to return to the ER or call 911 if any headaches, dizziness, shortness of breath, chest pain, abdominal pain, bleeding, fevers, or worsening of medical condition. Patient was counseled about treatment plan, medications, possible side effects, patientverbalized understanding. All questions were answered to the best of my ability. This discharge took greater then 30 minutes in planning, reviewing documentation, counseling the patient, and discussing with other team members." ASSESSMENT ASSESSMENT Assessment Acute hypoxic respiratory failure likely due to CHF exacerbation Acute exacerbation of heart failure with reduced ejection fraction H/O Coronary artery disease s/p PTCA Ischemic cardiomyopathy PE less likely MARJAN on CKD stage 4 likely prerenal hemodynamically mediated Type 2 diabetes mellitus with hyperglycemia Date of Service: Sep 15, 2024 Billing Provider: DYLLAN CHAPIN MD Common Visit Codes: 34735-SDS/OBS DISCH DAY >30min FLAVIO CORONA RESIDENT Sep 15, 2024 21:00 DYLLAN CHAPIN MD Sep 17, 2024 15:33
[2024-09-16] MEDS ORDERED: METOPROLOL SUCCINATE XL 50 MG TAB PO SCH ×3 (10:00)
== END 2024-09-15 18:00 | disposition home or self-care (01) | DRG 194 ==
LOC: ER 09:40 → TELE 15:29 → TELE-WESTW 21:35 → WEST WING 09-14 20:32
PROVIDERS: ADMIT Student in an Organized Health Care Education/Training Program; ATTEND Student in an Organized Health Care Education/Training Program
DX: I13.0 Hypertensive heart and chronic kidney disease with heart failure and stage 1 through stage 4 chronic kidney disease, or unspecified chronic kidney disease (principal); J96.01 Acute respiratory failure with hypoxia; N17.9 Acute kidney failure, unspecified; E11.22 Type 2 diabetes mellitus with diabetic chronic kidney disease; E78.5 Hyperlipidemia, unspecified; N18.4 Chronic kidney disease, stage 4 (severe); Z20.822 Contact with and (suspected) exposure to COVID-19; I25.5 Ischemic cardiomyopathy; E11.65 Type 2 diabetes mellitus with hyperglycemia; I25.10 Atherosclerotic heart disease of native coronary artery without angina pectoris; Z83.3 Family history of diabetes mellitus; Z82.49 Family history of ischemic heart disease and other diseases of the circulatory system; Z86.73 Personal history of transient ischemic attack (TIA), and cerebral infarction without residual deficits; I25.2 Old myocardial infarction; Z82.0 Family history of epilepsy and other diseases of the nervous system; Z81.8 Family history of other mental and behavioral disorders; Z98.61 Coronary angioplasty status; I50.23 Acute on chronic systolic (congestive) heart failure
CPT/HCPCS: 36415; 71046; 76775; 80048; 80053; 81001; 82306; 82570; 82962; 83036; 83880; 83970; 84100; 84156; 84300; 84443; 84484; 85025; 85379; 87426; 87804; 93005; 93970; 99291; G0378; J1815

== ENCOUNTER 2024-09-18 12:13 | Inpatient (IN) | payer MEDICAID ==
[~2024-09-18] VITALS: Ht 175.3 cm; Wt 86.1 kg
[~2024-09-18 12:13] MED LIST changes: +BUM1T PO; -BUME1TAB3 PO; -CLOP75TA28 PO; -HYDR12.59 PO; +HYDR25TA5 PO; -LISI10TA34 PO
--- NOTE | 2024-09-18 12:56 | ED.PDOC ---
History of Present Illness HPI Comments 53Y M with PMHx DM, HTN, HLD, CKD, CVA, DE s/p stenting presents to ED for chief complaint headache with left arm/shoulder pain, back pain, bilateral foot pain, unsteady gait, edema, and lt facial numbness [id number] today. Pt denies weakness, numbness, chest pain, and SOB. Pt is currently taking Plavix, ASA, and Lasix. Pt was discharged from [facility] on 09/15/2024 with dx SOB due to CHF exacerbation, rule out PE. Chief Complaint: Left Sided Weakness Time Seen by MD: 12:24 Primary Care Provider: oSni Reviewed Notes: Nurses Notes, Medications, Allergies Allergies: Coded Allergies: NO KNOWN ALLERGIES (Unverified , 04/30/16) Home Meds Active Scripts Hctz (Hydrochlorothiazide) 25 Mg Tab, 12.5 MG PO BID for 30 Days, #30 TAB Prov:FLAVIO CORONA 09/15/24 Metoprolol Succinate (Metoprolol Succinate Er) 50 Mg Tab, 2 TAB PO DAILY for 30 Days, #60 TAB 5 Refills Prov:FLAVIO CORONA [facility] 09/15/24 Bumetanide (Bumex Tablet) 1 Mg Tab, 2.5 MG PO BID for 30 Days, #150 TAB BLK BX WARNING-CAN LEAD TO PROFOUND DIURESIS WITH FLUID- ELECTROLYTE LOSS Prov:FLAVIO CORONA 09/15/24 Nifedipine (Nifedipine Er) 60 Mg Tab, 1 TAB PO DAILY for 30 Days, #30 TAB Prov:FLAVIO CORONA 09/15/24 Atorvastatin Calcium (ATORVASTATIN CALCIUM) 20 Mg Tab, 20 MG PO HS for 30 Days, #30 TAB 3 Refills Prov:ILYA DAY DO 06/20/24 Aspirin (ASPIRIN/ENTERIC) 81 Mg Tab, 81 MG PO DAILY, #90 TAB Prov:JONATHAN ALBERT MD 01/21/23 Reported Medications Dapagliflozin Propanediol (Farxiga) 10 Mg Tab, 1 TAB PO DAILY for 90 Days, #90 09/15/24 Ergocalciferol (Vitamin D (Ergocalciferol) 50,000 Unit Cap, 1 CAP PO QWEEKLY for 28 Days, #4 07/06/24 Albuterol Sulfate (Albuterol Sulfate Hfa) 108 Mcg/Act Aer, 2 PUFF INH TID for 30 Days, #18 INHALE 2 PUFFS 3 TIMES A DAY FOR 5 DAYS. 06/20/24 Metformin Hydrochloride (Metformin Hcl) 850 Mg Tab, 850 MG PO BID for 30 Days, MG 01/15/23 Discontinued Reported Medications Bumetanide (Bumetanide) 1 Mg Tab, 1 TAB PO DAILY for 30 Days, #30 09/15/24 Hydrochlorothiazide (Hydrochlorothiazide) 12.5 Mg Cap, 1 CAP PO DAILY for 30 Days, #30 07/06/24 Discontinued Scripts Lisinopril (Lisinopril) 10 Mg Tab, 10 MG PO DAILY for 30 Days, #30 TAB Prov:RENAN POLLOCK RESIDENT 07/09/24 Metoprolol Succinate (Metoprolol Succinate Er) 50 Mg Tab, 1 TAB PO DAILY for 30 Days, #30 TAB 5 Refills Prov:RENAN POLLOCK RESIDENT 07/07/24 Clopidogrel Bisulfate (Plavix) 75 Mg Tab, 1 TAB PO DAILY, #90 TAB 1 Refill Prov:JONATHAN ALBERT MD 01/21/23 Information Source: Patient Mode of Arrival: Wheelchair Severity: Moderate Timing: Hours Duration: Since onset Past Medical History PAST MEDICAL HISTORY: CVA, DM, High Lipids, HTN, DE Surgical History: PTCA Family History Family History: Reviewed,noncontributory to illness, Family hx of DM, Family hx of HTN Social History Smoker: Non-Smoker Alcohol: Occasionally Drugs: Denies Drug Use Lives In: Home Constitutional: denies: chills, diaphoresis, fatigue, fever, malaise, sweats, weakness, others EENTM: denies: blurred vision, double vision, ear bleeding, ear discharge, ear drainage, ear pain, ear ringing, eye pain, eye redness, hearing loss, mouth pain, mouth swelling, nasal discharge, nose bleeding, nose congestion, nose pain, photophobia, tearing, throat pain, throat swelling, voice changes, others Respiratory: denies: cough, hemoptysis, orthopnea, SOB at rest, shortness of breath, SOB with excertion, stridor, wheezing, others Cardiovascular: reports: edema, left arm pain; denies: chest pain, dizzy spells, diaphoresis, Dyspnea on exertion, irregular heart beat, lightheadedness, palpitations, PND, syncope, others Gastrointestinal: denies: abdomen distended, abdominal pain, blood streaked bowels, constipated, diarrhea, dysphagia, difficulty swallowing, hematemesis, melena, nausea, poor appetite, poor fluid intake, rectal bleeding, rectal pain, vomiting, others Genitourinary: denies: burning, dysuria, flank pain, frequency, hematuria, incontinence, penile discharge, penile sore, pain, testicle pain, testicle swelling, urgency, others Neurological: reports: headache, left sided numbness (left facial numbness); denies: dizziness, fainting, left sided weakness, numbness, paresthesia, pre- existing deficit, right sided numbness, right sided weakness, seizure, speech problems, tingling, tremors, weakness, others Musculoskeletal: reports: back pain; denies: gout, joint pain, joint swelling, muscle pain, muscle stiffness, neck pain, others Integumetry: denies: bruises, change in color, change in hair/nails, dryness, laceration, lesions, lumps, rash, wounds, others Allergic/Immunocompromised: denies: Difficulty Healing, Frequent Infections, Hives, Itching, others Hematologic/Lymphatic: denies: anemia, blood clots, easy bleeding, easy bruising, swollen glands, others Endocrine: denies: excessive hunger, excessive sweating, excessive thirst, excessive urination, flushing, intolerance to cold, intolerance to heat, unexplained weight gain, unexplained weight loss, others Psychiatric: denies: anxiety, bipolar disorder, depression, hopeless, panic disorder, schizophrenia, sleepless, suicidal, others All Other Systems: Reviewed and Negative Physical Exam General Appearance: No Apparent Distress, Normal HEENT: Normal ENT Inspection, Pharynx Normal, TMs Normal Neck: Full Range of Motion, Non-Tender, Normal, Normal Inspection Respiratory: Chest Non-Tender, Lungs Clear, No Accessory Muscle Use, No Respiratory Distress, Normal Breath Sounds Cardiovascular: No Edema, No JVD, No Murmur, No Gallop, Normal Peripheral Pulses, Regular Rate/Rhythm Breast Exam: Deferred Gastrointestinal: No Organomegaly, Non Tender, No Pulsatile Mass, Normal Bowel Sounds, Soft Genitalia: Deferred Pelvic: Deferred Rectal: Deferred Extremities: No calf tenderness, Normal capillary refill, Normal inspection, Normal range of motion, Non-tender, No pedal edema Musculoskeletal : Apperance: Normal Neurologic: Alert, attic blower II-XII nml as Tested, No Motor Deficits, Normal Affect, Normal Mood, No Sensory Deficits Cerebellar Function: Normal Reflexes: Normal Skin: Dry, Normal Color, Warm Lymphatic: No Adenopathy Was a procedure done? Was a procedure done?: No Differential Dx Considerations may include: CVA, ACS, Marcos's palsy, electrolyte abnormality, renal dysfunction, infection X-Ray, Labs, Meds, VS Vital Signs Date Time Temp Pulse Resp B/P (MAP) Pulse Ox O2 Delivery O2 Flow Rate FiO2 09/18/24 18:59 81 12 139/82 (101) 95 09/18/24 17:30 79 12 131/73 (92) 95 09/18/24 15:00 74 16 96 Room Air* 0 21 09/18/24 15:00 98.0 74 16 119/68 (85) 96 98.0 09/18/24 12:27 98.0 70 16 103/60 (74) 98 09/18/24 12:27 69 Lab Test 09/18/24 14:17 09/18/24 13:23 Range/Units Troponin I High Sensitivity 122 *H 131 *H </=54 ng/L White Blood Count 8.8 4.4-10.8 10^3/uL Red Blood Count 3.38 L 4.5-5.90 10^6/uL Hemoglobin 10.2 L 13.5-17.5 g/dL Hematocrit 30.3 L 41.0-53.0 % Mean Corpuscular Volume 89.5 80.0-100.0 fL Mean Corpuscular Hemoglobin 30.3 28.0-32.0 pg Mean Corpuscular Hemoglobin Concent 33.8 32.0-36.0 g/dL Red Cell Distribution Width 14.8 H 11.8-14.3 % Platelet Count 359 140-450 10^3/uL Mean Platelet Volume 8.3 6.9-10.8 fL Neutrophils (%) (Auto) 64.1 37.0-80.0 % Lymphocytes (%) (Auto) 22.0 10.0-50.0 % Monocytes (%) (Auto) 7.8 0.0-12.0 % Eosinophils (%) (Auto) 4.6 0.0-7.0 % Basophils (%) (Auto) 1.5 0.0-2.0 % Neutrophils # (Auto) 5.6 1.6-8.6 10 ^3/uL Lymphocytes # (Auto) 1.9 0.4-5.4 10 ^3/uL Monocytes # (Auto) 0.7 0-1.3 10 ^3/uL Eosinophils # (Auto) 0.4 0-0.8 10 ^3/uL Basophils # (Auto) 0.1 0-0.2 10 ^3/uL Nucleated Red Blood Cells 0.0 % Sodium Level 137 136-145 mmol/L Potassium Level 4.9 3.5-5.1 mmol/L Chloride Level 104 98-107 mmol/L Carbon Dioxide Level 24 20-31 mmol/L Anion Gap 9 5-15 Blood Urea Nitrogen 72 H 9-23 mg/dL Creatinine 6.55 H 0.700-1.30 mg/dL Glomerular Filtration Rate Calc 9 >90 mL/min BUN/Creatinine Ratio 11.0 10.0-20.0 Serum Glucose 167 H 74-106 mg/dL Lactic Acid Level 1.0 0.4-2.0 mmol/L Calcium Level 9.7 8.7-10.4 mg/dL Total Bilirubin 0.3 0.2-1.0 mg/dL Direct Bilirubin 0.1 <0.3 mg/dL Aspartate Amino Transferase (AST) 21 13-40 U/L Alanine Aminotransferase (ALT) 18 7-40 U/L Alkaline Phosphatase 88 46-116 U/L Total Protein 6.5 5.7-8.2 g/dL Albumin 4.0 3.2-4.8 g/dL Lipase 48 12-53 U/L Current Medications Medications (Trade) Dose Ordered Sig/Tai Route Start Time Stop Time Status Last Admin Sodium Chloride 1,000 ml @ 1,000 mls/hr Q1H ONCE IV 09/18/24 13:15 09/18/24 14:14 DC 09/18/24 16:[address] [address] Ph: [phone] DIAGNOSTIC IMAGING Diagnostic Imaging Report : [id number] Signed PATIENT: Alex MAYCCT: [id number] UNIT: [id number] : 1970 LOC: ER ROOM / BED: / AGE / SEX: 53 / M ADM STATUS: REG ER SERVICE 1312 ORDERING PHYSICIAN: DENISE SALGADO MD PROCEDURE(s): HWOCT - HEAD WITHOUT CONTRAST REASON: history of stroke, numbness of left face ORDER NUMBER(s): [id number], ACCESSION NUMBER(s): [id number] EXAM: CT HEAD WITHOUT CONTRAST HISTORY: history of stroke, numbness of left face COMPARISON: CT HEAD WITHOUT CONTRAST on DOS: 07/04/24, CT HEAD WITHOUT CONTRAST on DOS: 06/19/24 TECHNIQUE: Axial images of the head were obtained and reformatted in coronal and sagittal planes. All CT scans at this medical facility are performed using dose modulation techniques as appropriate to a performed exam including the following: Automated exposure control was utilized; adjustment of the MA and/or KV according to patient size; and use of iterative reconstruction technique. CT Dose: CTDI volume is 54 mGy. Dose-length product is a 63 mGy*cm FINDINGS: There is no evidence of acute intracranial hemorrhage, mass, mass effect midline shift. There is no hydrocephalus or extra-axial fluid collection. Abad-white matter differentiation is maintained. The visualized paranasal sinuses and mastoid air cells are clear. The calvarium is intact. IMPRESSION: 1. No acute intracranial process. HS:Y ATED BY: JOVAN BRICENO MD DICTATED DATE/TIME: 09/18/24 134 SIGNED BY: JOVAN BRICENO MD SIGNED DATE/TIME: 09/18/24 134 CC: [place] [id number] Ph: [phone] DIAGNOSTIC IMAGING Diagnostic Imaging Report : [id number] Signed PATIENT: Alex MAY CASEYT: [id number] UNIT: [id number] : 1970 LOC: ER ROOM / BED: / AGE / SEX: 53 / M ADM STATUS: REG ER SERVICE 1312 ORDERING PHYSICIAN: DENISE SALGADO MD PROCEDURE(s): CXRP - CHEST PORTABLE REASON: LUE numbness ORDER NUMBER(s): [id number], ACCESSION NUMBER(s): [id number] XY CHEST PORTABLE, HISTORY: LUE numbness COMPARISON: XY CHEST PORTABLE on DOS: 07/04/24, XY CHEST PORTABLE on DOS: 06/19/24, XY CHEST PORTABLE on DOS: 01/22/23 XY CHEST PORTABLE on DOS: 07/04/24, XY CHEST PORTABLE on DOS: 06/19/24, XY CHEST PORTABLE on DOS: 01/22/23 TECHNICAL DATA: 1 view of the chest was obtained. FINDINGS: Lines and tubes: None Cardiomediastinal silhouette: normal Pulmonary vasculature: normal Lung expansion: normal Lung airspace: normal Lung interstitium: normal Pleura: normal Pneumothorax: no Bones: Unremarkable Other: no IMPRESSION: No acute intrathoracic abnormality. ATED BY: UMBERTO CALDERON MD DICTATED DATE/TIME: 09/18/24 1343 SIGNED BY: UMBERTO CALDERON MD SIGNED DATE/TIME: 09/18/24 1343 CC: X-Ray, Labs, Meds, VS Comment 53-year-old male with multiple chronic comorbidities notably prior CVA here today with multiple complaints as above. Vital signs stable, afebrile. Physical exam as above without any significant acute findings including a normal neurologic exam. CT scan of the head without any evidence of acute pathology. Troponin mildly elevated x2, suspect demand ischemia. Patient also has MARJAN with climbing creatinine even compared to blood work that was done only a couple of days ago. Patient has an appointment with a relaster in approximately 3 weeks outpatient. Plan was made to admit the patient for further evaluation of his worsening renal function, elevated troponin, and his numbness. Time of 1ST Reevaluation: 12:54 Reevaluation 1ST: Unchanged Patient Education/Counseling: Diagnosis, Treatment Family Education/Counseling: No Family Present Departure 1 Departure Time of Disposition: 21:41 Impression: Primary Impression: Acute renal disease Additional Impression: Elevated troponin Disposition: ADMITTED INPATIENT Admit to: [facility] Condition: Guarded Critical Care Note Critical Care Time?: No Stability Stability form required: No Heart Score Heart Score: Heart Score Response (Comments) Value History N/A 0 EKG N/A 0 Age N/A 0 Risk Factors N/A 0 Troponin N/A 0 Total 0 I personally scribed for DENISE SALGADO MD ([facility]) on 09/18/24 at 12:56. Electronically submitted by Ericka Zhou ([facility]). I personally scribed for DENISE SALGADO MD ([facility]) on 09/18/24 at 14:00. Electronically submitted by Ericka Zhou ([facility]). DENISE SALGADO MD Sep 18, 2024 12:56
--- NOTE | 2024-09-18 13:42 | DVH ---
EXAM: CT HEAD WITHOUT CONTRAST HISTORY: history of stroke, numbness of left face COMPARISON: CT HEAD WITHOUT CONTRAST on DOS: 07/04/24, CT HEAD WITHOUT CONTRAST on DOS: 06/19/24 TECHNIQUE: Axial images of the head were obtained and reformatted in coronal and sagittal planes. All CT scans at this medical facility are performed using dose modulation techniques as appropriate t o a performed exam including the following: Automated exposure control was utilized; adjustment of th e MA and/or KV according to patient size; and use of iterative reconstruction technique. CT Dose: CTDI volume is 54 mGy. Dose-length product is a 63 mGy*cm FINDINGS: There is no evidence of acute intracranial hemorrhage, mass, mass effect midline shift. There is no h ydrocephalus or extra-axial fluid collection. Abad-white matter differentiation is maintained. The visualized paranasal sinuses and mastoid air cells are clear. The calvarium is intact. IMPRESSION: 1. No acute intracranial process. HS:Y
--- NOTE | 2024-09-18 13:45 | DVH ---
XY CHEST PORTABLE, HISTORY: LUE numbness COMPARISON: XY CHEST PORTABLE on DOS: 07/04/24, XY CHEST PORTABLE on DOS: 06/19/24, XY CHEST PORTABLE on DOS: 01/22/23 XY CHEST PORTABLE on DOS: 07/04/24, XY CHEST PORTABLE on DOS: 06/19/24, XY CHEST PORTABLE on DOS: 01/22 TECHNICAL DATA: 1 view of the chest was obtained. FINDINGS: Lines and tubes: None Cardiomediastinal silhouette: normal Pulmonary vasculature: normal Lung expansion: normal Lung airspace: normal Lung interstitium: normal Pleura: normal Pneumothorax: no Bones: Unremarkable Other: no IMPRESSION: No acute intrathoracic abnormality.
[2024-09-18 13:51] LABS: Basophils # (auto) 0.1 10 ^3/uL (0-0.2); Basophils % (auto) 1.5 % (0.0-2.0); Eosinophils # (auto) 0.4 10 ^3/uL (0-0.8); Eosinophils % (auto) 4.6 % (0.0-7.0); Hematocrit 30.3 % (41.0-53.0); Hemoglobin 10.2 g/dL (13.5-17.5); Lymphocytes # (auto) 1.9 10 ^3/uL (0.4-5.4); Mean Corpuscular Hemoglobin 30.3 pg (28.0-32.0); Mean Corpuscular Hgb Conc. 33.8 g/dL (32.0-36.0); Mean Corpuscular Volume 89.5 fL (80.0-100.0); Monocytes # (auto) 0.7 10 ^3/uL (0-1.3); Monocytes % (auto) 7.8 % (0.0-12.0); Neutrophils # (auto) 5.6 10 ^3/uL (1.6-8.6); Neutrophils % (auto) 64.1 % (37.0-80.0); Platelet Count (auto) 359 10^3/uL (140-450); Red Blood Cells 3.38 10^6/uL (4.5-5.90); Red Cell Distribution Width 14.8 % (11.8-14.3); White Blood Cell 8.8 10^3/uL (4.4-10.8)
[2024-09-18 13:58] LABS: Alanine Aminotransferase 18 U/L (7-40); Alkaline Phosphatase 88 U/L (46-116); Anion Gap 9 (5-15); Aspartate Aminotransferase 21 U/L (13-40); Bilirubin, Direct 0.1 mg/dL (<0.3); Bilirubin, Total 0.3 mg/dL (0.2-1.0); Calcium 9.7 mg/dL (8.7-10.4); Carbon Dioxide 24 mmol/L (20-31); Chloride 104 mmol/L (98-107); Potassium 4.9 mmol/L (3.5-5.1); Sodium 137 mmol/L (136-145); Total Protein 6.5 g/dL (5.7-8.2)
[2024-09-18 14:00] LABS: Blood Urea Nitrogen 72 mg/dL (9-23); Glucose 167 mg/dL (74-106)
[2024-09-18 15:00] VITALS: PULSE 74; RESP 16; O2SAT 96
[2024-09-18] MEDS: SODIUM CHLORIDE 0.9% 1,000 ML IV ONE (16:00)
[2024-09-18 19:30] VITALS: PULSE 72; RESP 16; O2SAT 97
[2024-09-18] MEDS ORDERED: ACETAMINOPHEN 325 MG TAB PO PRN (19:30)
[2024-09-18] MEDS ORDERED: DEXTROSE (50%) 50ML SYRG IV PRN (19:30)
[2024-09-18] MEDS ORDERED: ONDANSETRON HCL 4 MG/2 ML VIAL IV PRN (19:30)
--- NOTE | 2024-09-18 21:20 | DVHHP2 ---
History of Present Illness Reason for Visit: Acute renal failure History of Present Illness The patient is a 53-year-old male with past medical history of CVA, DM, hyperlipidemia, [place], and hypertension who presented to [facility] ED with complaint of generalized weakness. Patient reports symptoms progressively get worse with unsteady get, associated headache, feeling left arm/shoulder, back, and bilateral foot pain, facial numbness, edema, getting worse that prompted this visit. Patient was seen and evaluated in the ED, laboratory data shows WBC 8.8, hemoglobin 10.2, hematocrit 30.3, platelets 359, sodium 137, potassium 4.9, BUN 72, creatinine 6.55, GFR nine, glucose 167, troponin 131, lipase 48, blood pressure 139/82, heart rate 82, temperature 98.0 F, O2 saturation 95% on room air. Please see medication orders section in the computer. On my assessment, patient denies chest pain, no headache, no dizziness, no shortness of breath, no nausea, no vomiting, no fever, no chills. Patient was admitted for further evaluation and medical management. Past Medical History CVA, DM, High Lipids, HTN, [place] Past Surgical History PTCA Family History Reviewed, noncontributory to the management of this case. Past Social History The patient lives at home, denies smoking, alcohol or illicit drugs abuse. Review of Systems Constitutional: Yes: Weakness; No: Fever, Chills, Sweats, Malaise, Other Eyes: No: Pain, Vision change, Conjunctivae inflammation, Eyelid inflammation, Other, Redness ENT: No: Ear pain, Ear discharge, Nose pain, Nose discharge, Nose congestion, Mouth pain, Mouth swelling, Throat pain, Throat swelling, Other Respiratory: No: Cough, Dry, Shortness of breath, SOB with excertion, Wheezing, Hemoptysis, Pleuritic Pain, Sputum, Wheezing, Other Cardiovascular: Edema, Other (Left arm pain); No: Chest Pain, Palpitations, Orthopnea, Paroxysmal Noc. Dyspnea, Lt Headedness Gastrointestinal: No: Nausea, Vomiting, Abdominal Pain, Diarrhea, Constipation, Melena, Hematochezia, Other Genitourinary: No Dysuria, No Frequency, No Incontinence, No Hematuria, No Retention, No Other Musculoskeletal: back pain; No: other, neck pain, shoulder pain, arm pain, hand pain, leg pain, foot pain Skin: No: Rash, Lesions, Jaundice, Bruising, Other Neurological: Numbness (Left-sided), Other (Headache); No: Weakness, Incoordination, Change in speech, Confusion, Seizures Allergies: Coded Allergies: NO KNOWN ALLERGIES (Unverified , 04/30/16) Medications Current Medications Medications Dose Ordered Sig/Tai Route Start Time Stop Time Status Last Admin Dose Admin Aspirin 81 mg DAILY PO 09/19/24 10:00 Clopidogrel Bisulfate 75 mg DAILY PO 09/19/24 10:00 Atorvastatin Calcium 20 mg HS PO 09/18/24 22:00 Hydralazine HCl 10 mg Q6HP PRN IV 09/18/24 19:30 Metoprolol Tartrate 25 mg BID PO 09/18/24 22:00 Diagnostic Test (Pha) 1 strip ACHS 09/18/24 22:00 Insulin Human Regular ACHS SC 09/18/24 22:00 Dextrose 50 ml UD PRN IV 09/18/24 19:30 Sodium Chloride 10 ml Q8HR IV 09/18/24 22:00 Acetaminophen/ Hydrocodone Bitart 1 tab Q4HP PRN PO 09/18/24 19:30 Ondansetron HCl 4 mg Q4HP PRN IV 09/18/24 19:30 Docusate Sodium 100 mg BIDPRN PRN PO 09/18/24 19:30 Acetaminophen 650 mg Q6HP PRN PO 09/18/24 19:30 Exam Vital Signs Vital Signs Date Time Temp Pulse Resp B/P (MAP) Pulse Ox O2 Delivery O2 Flow Rate FiO2 09/18/24 18:59 81 12 139/82 (101) 95 09/18/24 15:00 Room Air* 0 21 09/18/24 15:00 98.0 98.0 General Appearance: Alert, Oriented X3, Cooperative, No acute distress HEENT: Atraumatic, PERRLA, EOMI, Mucous membr. moist/pink Respiratory: Clear to auscultation, Normal air movement Cardiovascular: Regular rate, Normal S1, Normal S2, No murmurs Abdominal: Normal bowel sounds, Soft, No tenderness, No hepatospenomegaly, No masses Extremities: No clubbing, No cyanosis, No edema, Normal pulses, No tend erness/swelling Skin: No rashes, No breakdown, No significant lesion Neuro: Normal speech, Normal tone, Sensation intact, Cranial nerves 3-12 NL, Reflexes 2+, Other (Generalized weakness) Psych/Mental Status: Mental status NL, Mood NL Labs/Xrays Labs Test 09/18/24 14:17 09/18/24 13:23 Range/Units Troponin I High Sensitivity 122 *H </=54 ng/L White Blood Count 8.8 4.4-10.8 10^3/uL Red Blood Count 3.38 L 4.5-5.90 10^6/uL Hemoglobin 10.2 L 13.5-17.5 g/dL Hematocrit 30.3 L 41.0-53.0 % Mean Corpuscular Volume 89.5 80.0-100.0 fL Mean Corpuscular Hemoglobin 30.3 28.0-32.0 pg Mean Corpuscular Hemoglobin Concent 33.8 32.0-36.0 g/dL Red Cell Distribution Width 14.8 H 11.8-14.3 % Platelet Count 359 140-450 10^3/uL Mean Platelet Volume 8.3 6.9-10.8 fL Neutrophils (%) (Auto) 64.1 37.0-80.0 % Lymphocytes (%) (Auto) 22.0 10.0-50.0 % Monocytes (%) (Auto) 7.8 0.0-12.0 % Eosinophils (%) (Auto) 4.6 0.0-7.0 % Basophils (%) (Auto) 1.5 0.0-2.0 % Neutrophils # (Auto) 5.6 1.6-8.6 10 ^3/uL Lymphocytes # (Auto) 1.9 0.4-5.4 10 ^3/uL Monocytes # (Auto) 0.7 0-1.3 10 ^3/uL Eosinophils # (Auto) 0.4 0-0.8 10 ^3/uL Basophils # (Auto) 0.1 0-0.2 10 ^3/uL Nucleated Red Blood Cells 0.0 % Sodium Level 137 136-145 mmol/L Potassium Level 4.9 3.5-5.1 mmol/L Chloride Level 104 98-107 mmol/L Carbon Dioxide Level 24 20-31 mmol/L Anion Gap 9 5-15 Blood Urea Nitrogen 72 H 9-23 mg/dL Creatinine 6.55 H 0.700-1.30 mg/dL Glomerular Filtration Rate Calc 9 >90 mL/min BUN/Creatinine Ratio 11.0 10.0-20.0 Serum Glucose 167 H 74-106 mg/dL Lactic Acid Level 1.0 0.4-2.0 mmol/L Calcium Level 9.7 8.7-10.4 mg/dL Total Bilirubin 0.3 0.2-1.0 mg/dL Direct Bilirubin 0.1 <0.3 mg/dL Aspartate Amino Transferase (AST) 21 13-40 U/L Alanine Aminotransferase (ALT) 18 7-40 U/L Alkaline Phosphatase 88 46-116 U/L Total Protein 6.5 5.7-8.2 g/dL Albumin 4.0 3.2-4.8 g/dL Lipase 48 12-53 U/L PATIENT: Alex MAYT: [id number] UNIT: [id number] : 1970 LOC: ER ROOM / BED: / AGE / SEX: 53 / M ADM STATUS: REG ER SERVICE 1312 ORDERING PHYSICIAN: DENISE SALGADO MD PROCEDURE(s): HWOCT - HEAD WITHOUT CONTRAST REASON: history of stroke, numbness of left face ORDER NUMBER(s): [id number], ACCESSION NUMBER(s): [id number] EXAM: CT HEAD WITHOUT CONTRAST HISTORY: history of stroke, numbness of left face COMPARISON: CT HEAD WITHOUT CONTRAST on DOS: 07/04/24, CT HEAD WITHOUT CONTRAST on DOS: 06/19/24 TECHNIQUE: Axial images of the head were obtained and reformatted in coronal and sagittal planes. All CT scans at this medical facility are performed using dose modulation techniques as appropriate to a performed exam including the following: Automated exposure control was utilized; adjustment of the MA and/or KV according to patient size; and use of iterative reconstruction technique. CT Dose: CTDI volume is 54 mGy. Dose-length product is a 63 mGy*cm FINDINGS: There is no evidence of acute intracranial hemorrhage, mass, mass effect midline shift. There is no hydrocephalus or extra-axial fluid collection. Abad-white matter differentiation is maintained. The visualized paranasal sinuses and mastoid air cells are clear. The calvarium is intact. IMPRESSION: 1. No acute intracranial process. ORDERING PHYSICIAN: DENISE SALGADO MD PROCEDURE(s): CXRP - CHEST PORTABLE REASON: LUE numbness ORDER NUMBER(s): [id number], ACCESSION NUMBER(s): [id number] XY CHEST PORTABLE, HISTORY: LUE numbness COMPARISON: XY CHEST PORTABLE on DOS: 07/04/24, XY CHEST PORTABLE on DOS: 06/19/24, XY CHEST PORTABLE on DOS: 01/22/23 XY CHEST PORTABLE on DOS: 07/04/24, XY CHEST PORTABLE on DOS: 06/19/24, XY CHEST PORTABLE on DOS: 01/22/23 TECHNICAL DATA: 1 view of the chest was obtained. FINDINGS: Lines and tubes: None Cardiomediastinal silhouette: normal Pulmonary vasculature: normal Lung expansion: normal Lung airspace: normal Lung interstitium: normal Pleura: normal Pneumothorax: no Bones: Unremarkable Other: no IMPRESSION: No acute intrathoracic abnormality. Assessment/Plan Assessment/Plan Acute renal failure Left-sided weakness Elevated troponin Diabetes mellitus with hyperglycemia Plan 1. Admit to telemetry unit 2. Breathing treatment 3. Pain control management 4. Management of fluids and electrolytes 5. Consultation for Nephrology 6. Diagnostic tests chest x-ray 7. DVT prophylaxis-on aspirin 8. Repeat labs CBC, CMP in a.m. 9. Continue with current medical management 10. Treatment plan discussed with patient and RN. Patient verbalized understanding. Plan discussed with: Patient, Other (RN) My Orders Orders - NESTOR HAM DNP Procedure Category Date Status Time Aspirin Tablet PHA 09/19/24 In Process 10:00 Clopidogrel Bisulfate PHA 09/19/24 In Process (Plavix) 10:00 Atorvastatin (Lipitor) PHA 09/18/24 In Process 22:00 Consistent DIET 09/19/24 Transmitted Carb(Ccho)Diabetes Breakfast Hydralazine Injection PHA 09/18/24 In Process (Apresoline Inject 19:30 Metoprolol Tartrate PHA 09/18/24 In Process Tablet (Lopressor Ta 22:00 *[facility] CONS 09/18/24 Transmitted -[place] 19:27 Troponin-I Hs LAB 09/18/24 Logged 22:00 Troponin-I Hs LAB 09/19/24 Verified 04:00 Glucose Blood PHA 09/18/24 In Process (Accu-Chek Comfort 22:00 Insulin R (Human) PHA 09/18/24 In Process (Insulin R) 22:00 Dextrose 50% Syringe PHA 09/18/24 In Process 19:30 Allergies MITESH 09/18/24 In Process 19:27 Code Status CODE 09/18/24 Transmitted 19:27 Renal DIET 09/19/24 Transmitted Standard(2gna,3gk,Lopho) Breakfast Sodium Chloride Lock PHA 09/18/24 In Process (Saline Lock Ns) 22:00 Oxygen Per Hour RT 09/18/24 Transmitted 19:27 Hydrocodone-Acet PHA 09/18/24 In Process 5/325mg Tab ([place] 19:30 Ondansetron Hcl PHA 09/18/24 In Process (Zofran) 19:30 Docusate Sodium PHA 09/18/24 In Process Capsule (Colace 19:30 Fall Risk Precautions MITESH 09/18/[address] 19:27 Complete Blood Count LAB 09/19/24 Verified 04:00 Comprehensive LAB 09/19/24 Verified Metabolic Panel 04:00 Condition: Serious MITESH 09/18/24 In Process 19:27 Acetaminophen Tablet PHA 09/18/24 In Process (Tylenol Tablet) 19:30 Sequential MITESH 09/18/24 In Process Compression Device Problem List: (1) Acute renal failure (2) Left-sided weakness (3) Elevated troponin (4) Diabetes mellitus with hyperglycemia Date of Service: Sep 18, 2024 Billing Provider: NESTOR HAM DNP Common Visit Codes: [id number] INP/OBS CARE (HIGH) NESTOR HAM DNP Sep 18, 2024 21:20
[2024-09-18] MEDS ORDERED: MORPHINE SULFATE INJ 2 MG/ml SYRG IV PRN (21:30)
[2024-09-18] MEDS ORDERED: NITROGLYCERIN 0.4 MG SL TAB SL PRN (21:30)
[2024-09-18 22:39] LABS: Urine Bacteria FEW /hpf (None Seen); Urine Blood TRACE /uL (Negative); Urine Clarity Turbid (Clear); Urine Color Light-Yellow (Yellow); Urine Hyaline Cast FEW /lpf (0 - 2); Urine Mucus FEW (None Seen); Urine Protein, UAD 3+ (Negative); Urine Specific Gravity 1.012 (1.001-1.035); Urine Squamous Epithelial Cell FEW /hpf (<5); Urine Urobilinogen Normal (Negative); Urine WBC 4 /hpf (0 - 3)
[2024-09-19] VITALS (8 sets, daily range): BP systolic 120–165; BP diastolic 78–97; PULSE 75–88; RESP 12–19; TEMP 97.3–98.7; O2SAT 95–98
[2024-09-19] MEDS: SODIUM CHLOR 0.9% PF (SALINE LOCK) 10ML VIAL/SYR IV SCH (00:23)
[2024-09-19] MEDS: ACCU-CHEK COMFORT CURVE STRIP VI SCH (00:28)
[2024-09-19] MEDS: InsuLIN REG 1unit/0.01ml Soln (100units/ml) SC SCH (00:29)
[2024-09-19] MEDS: METOPROLOL TARTRATE 25 MG TAB PO SCH (00:39)
[2024-09-19] MEDS: ATORVASTATIN 20 MG TAB PO SCH (00:39)
[2024-09-19] MEDS: ASPirin 81 mg TAB PO ONE (00:49)
[2024-09-19 05:37] LABS: Basophils # (auto) 0.1 10 ^3/uL (0-0.2); Basophils % (auto) 1.2 % (0.0-2.0); Eosinophils # (auto) 0.6 10 ^3/uL (0-0.8); Hematocrit 28.9 % (41.0-53.0); Hemoglobin 9.7 g/dL (13.5-17.5); Lymphocytes # (auto) 2.1 10 ^3/uL (0.4-5.4); Mean Corpuscular Hemoglobin 30.3 pg (28.0-32.0); Mean Corpuscular Hgb Conc. 33.6 g/dL (32.0-36.0); Mean Corpuscular Volume 90.1 fL (80.0-100.0); Monocytes # (auto) 1.1 10 ^3/uL (0-1.3); Monocytes % (auto) 10.8 % (0.0-12.0); Neutrophils # (auto) 6.5 10 ^3/uL (1.6-8.6); Platelet Count (auto) 321 10^3/uL (140-450); White Blood Cell 10.4 10^3/uL (4.4-10.8)
[2024-09-19 05:55] LABS: Alanine Aminotransferase 14 U/L (7-40); Albumin 3.7 g/dL (3.2-4.8); Alkaline Phosphatase 72 U/L (46-116); Anion Gap 10 (5-15); Aspartate Aminotransferase 18 U/L (13-40); BUN/Creatinine Ratio 10.5 (10.0-20.0); Calcium 9.3 mg/dL (8.7-10.4); Carbon Dioxide 23 mmol/L (20-31); Potassium 4.4 mmol/L (3.5-5.1); Sodium 141 mmol/L (136-145); Total Protein 6.2 g/dL (5.7-8.2)
[2024-09-19 05:58] LABS: Bilirubin, Total 0.3 mg/dL (0.2-1.0); Blood Urea Nitrogen 68 mg/dL (9-23); Chloride 108 mmol/L (98-107); Glucose 131 mg/dL (74-106)
[2024-09-19] MEDS: hydrALAZINE HCL 20 MG/ML VL IV PRN (06:45)
[2024-09-19] MEDS: ASPirin 81 mg TAB PO SCH (09:47)
[2024-09-19] MEDS: CLOPIDOGREL BISULFATE 75 MG TAB PO SCH (10:00)
--- NOTE | 2024-09-19 11:45 | DVHPN2 ---
Reviewed: Care Plan, H&P, Labs, Medications, Radiology Changes from previous H/P or p: No Changes General: Per HPI Eyes: No Pain, No Vision change, No Conjunctivae inflammation, No Eyelid inflammation, No Other, No Redness ENT: No Ear pain, No Ear discharge, No Nose pain, No Nose discharge, No Nose congestion, No Mouth pain, No Mouth swelling, No Throat pain, No Throat swelling, No Other Cardiovascular: No Chest Pain, No Palpitations, No Orthopnea, No Paroxysmal Noc. Dyspnea; Edema; No Lt Headedness; Other (Left arm pain) Respiratory: No Cough, No Dry, No Shortness of breath, No SOB with excertion, No Wheezing, No Hemoptysis, No Pleuritic Pain, No Sputum, No Other Gastrointestinal: No Nausea, No Vomiting, No Abdominal Pain, No Diarrhea, No Constipation, No Melena, No Hematochezia, No Other Genitourinary: No Dysuria, No Frequency, No Incontinence, No Hematuria, No Retention, No Other Musculoskeletal: No other, No neck pain, No shoulder pain, No arm pain; back pain; No hand pain, No leg pain, No foot pain Skin: No Rash, No Lesions, No Jaundice, No Bruising, No Other Objective Vitals Vital Signs Date Time Temp Pulse Resp B/P (MAP) Pulse Ox O2 Delivery O2 Flow Rate FiO2 09/19/24 09:47 82 120/78 09/19/24 09:00 97.3 18 98 97.3 09/19/24 08:37 Room Air* 0 21 Intake/Output Intake and Output 09/19/24 06:59 Intake Total 1000 ml Balance 1000 ml Intake IV Total 1000 ml Medications Current Medications Medications Dose Ordered Sig/Tai Route Start Time Stop Time Status Last Admin Dose Admin Aspirin 81 mg DAILY PO 09/19/24 10:00 09/19/24 09:47 81 MG Clopidogrel Bisulfate 75 mg DAILY PO 09/19/24 10:00 Atorvastatin Calcium 20 mg HS PO 09/18/24 22:00 09/19/24 00:39 20 MG Hydralazine HCl 10 mg Q6HP PRN IV 09/18/24 19:30 09/19/24 06:45 10 MG Metoprolol Tartrate 25 mg BID PO 09/18/24 22:00 09/19/24 09:47 25 MG Diagnostic Test (Pha) 1 strip ACHS 1/17/25 22:00 09/19/24 11:43 1 STRIP Insulin Human Regular ACHS SC 09/18/24 22:00 Dextrose 50 ml UD PRN IV 09/18/24 19:30 Sodium Chloride 10 ml Q8HR IV 09/18/24 22:00 09/19/24 06:07 10 ML Acetaminophen/ Hydrocodone Bitart 1 tab Q4HP PRN PO 09/18/24 19:30 Ondansetron HCl 4 mg Q4HP PRN IV 09/18/24 19:30 Docusate Sodium 100 mg BIDPRN PRN PO 09/18/24 19:30 Acetaminophen 650 mg Q6HP PRN PO 09/18/24 19:30 Nitroglycerin 0.4 mg Q5MINP PRN SL 09/18/24 21:30 Morphine Sulfate 2 mg Q30M PRN IV 09/18/24 21:30 Laboratory Results Laboratory Tests 09/19/24 05:11 Chemistry Test 09/18/24 13:23 09/19/24 05:11 Albumin 4.0 g/dL (3.2-4.8) 3.7 g/dL (3.2-4.8) Calcium Level 9.7 mg/dL (8.7-10.4) 9.3 mg/dL (8.7-10.4) Total Protein 6.5 g/dL (5.7-8.2) 6.2 g/dL (5.7-8.2) Lipid panel Test 09/18/24 13:23 Lipase 48 U/L (12-53) LFT Test 09/18/24 13:23 09/19/24 05:11 Alanine Aminotransferase (ALT) 18 U/L (7-40) 14 U/L (7-40) Alkaline Phosphatase 88 U/L (46-116) 72 U/L (46-116) Aspartate Amino Transferase (AST) 21 U/L (13-40) 18 U/L (13-40) Direct Bilirubin 0.1 mg/dL (<0.3) Total Bilirubin 0.3 mg/dL (0.2-1.0) 0.3 mg/dL (0.2-1.0) Urinalysis Test 09/18/24 00:00 Urine Color Light-yellow (Yellow) Urine Clarity Turbid (Clear) H Urine pH 6.0 (5.0-9.0) Urine Specific [place] 1.012 (1.001-1.035) Urine Protein 3+ (Negative) H Urine Ketones Negative (Negative) Urine Blood Trace /uL (Negative) H Urine Nitrite Negative (Negative) Urine Bilirubin Negative (Negative) Urine Urobilinogen Normal mg/dL (Negative) Urine Leukocyte Esterase Negative /uL (Negative) Urine RBC 1 /hpf (0 - 3) Urine WBC 4 /hpf (0 - 3) Urine Squamous Epithelial Cells Few /hpf (<5) Urine Bacteria Few /hpf (None Seen) H Urine Hyaline Casts Few /lpf (0 - 2) Urine Mucus Few (None Seen) Urine Glucose 2+ mg/dL (Normal) H Assessment/Plan Assessment/Plan The patient is a 53-year-old male with past medical history of CVA, DM, hyperlipidemia, [place], and hypertension who presented to [facility] ED with complaint of generalized weakness. Patient reports symptoms progressively get worse with unsteady get, associated headache, feeling left arm/shoulder, back, and bilateral foot pain, facial numbness, edema, getting worse that prompted this visit. Patient was seen and evaluated in the ED, laboratory data shows WBC 8.8, hemoglobin 10.2, hematocrit 30.3, platelets 359, sodium 137, potassium 4.9, BUN 72, creatinine 6.55, GFR nine, glucose 167, troponin 131, lipase 48, blood pressure 139/82, heart rate 82, temperature 98.0 F, O2 saturation 95% on room air. Please see medication orders section in the computer. On my assessment, patient denies chest pain, no headache, no dizziness, no shortness of breath, no nausea, no vomiting, no fever, no chills. Patient was admitted for further evaluation and medical management. Acute renal failure on CKD Left-sided weakness Elevated troponin Diabetes mellitus with hyperglycemia cardiorenal syndrome b/l leg edema 09/19/2024: to be evaluated by nephro for possible HD. Nephro started on Bumex drip Plan discussed with: Patient Date of Service: Sep 19, 2024 Billing Provider: ILYA DAY DO Common Visit Codes: [id number] INP/OBS CARE(HIGH) ILYA DAY DO Sep 19, 2024 11:45
[2024-09-19] MEDS: SODIUM CHLORIDE 0.9% 1,000 ML IV SCH (12:07)
--- NOTE | 2024-09-19 14:02 | DVHINCON2 ---
Date of service: Sep 19, 2024 Reason for Consultation MARJAN History of Present Illness A 53 years old male with past medical history of Congestive heart failure EF less than 40, coronary artery disease status post stent, diabetes for the past five years, hypertension, CVA, chronic kidney disease four presented with chief complaints of left-sided numbness on the cheek and left upper extremity pain also complains of bilateral lower extremity swelling denies shortness of breath denies any urinary complaints Past Medical History As per HPI Past Surgical History As per HPI Allergies: Coded Allergies: NO KNOWN ALLERGIES (Unverified , 04/30/16) Home Meds Active Scripts Hctz (Hydrochlorothiazide) 25 Mg Tab, 12.5 MG PO BID for 30 Days, #30 TAB Prov:FLAVIO CORONA 09/15/24 Metoprolol Succinate (Metoprolol Succinate Er) 50 Mg Tab, 2 TAB PO DAILY for 30 Days, #60 TAB 5 Refills Prov:FLAVIO CORONA 09/15/24 Bumetanide (Bumex Tablet) 1 Mg Tab, 2.5 MG PO BID for 30 Days, #150 TAB BLK BX WARNING-CAN LEAD TO PROFOUND DIURESIS WITH FLUID- ELECTROLYTE LOSS Prov:FLAVIO CORONA 09/15/24 Nifedipine (Nifedipine Er) 60 Mg Tab, 1 TAB PO DAILY for 30 Days, #30 TAB Prov:FLAVIO CORONA 09/15/24 Atorvastatin Calcium (ATORVASTATIN CALCIUM) 20 Mg Tab, 20 MG PO HS for 30 Days, #30 TAB 3 Refills Prov:ILYA DAY DO 06/20/24 Aspirin (ASPIRIN/ENTERIC) 81 Mg Tab, 81 MG PO DAILY, #90 TAB Prov:JONATHAN ALBERT MD 01/21/23 Reported Medications Dapagliflozin Propanediol (Farxiga) 10 Mg Tab, 1 TAB PO DAILY for 90 Days, #90 09/15/24 Ergocalciferol (Vitamin D (Ergocalciferol) 50,000 Unit Cap, 1 CAP PO QWEEKLY for 28 Days, #4 07/06/24 Albuterol Sulfate (Albuterol Sulfate Hfa) 108 Mcg/Act Aer, 2 PUFF INH TID for 30 Days, #18 INHALE 2 PUFFS 3 TIMES A DAY FOR 5 DAYS. 06/20/24 Metformin Hydrochloride (Metformin Hcl) 850 Mg Tab, 850 MG PO BID for 30 Days, MG 01/15/23 Discontinued Reported Medications Bumetanide (Bumetanide) 1 Mg Tab, 1 TAB PO DAILY for 30 Days, #30 09/15/24 Hydrochlorothiazide (Hydrochlorothiazide) 12.5 Mg Cap, 1 CAP PO DAILY for 30 Days, #30 07/06/24 Discontinued Scripts Lisinopril (Lisinopril) 10 Mg Tab, 10 MG PO DAILY for 30 Days, #30 TAB Prov:RENAN POLLOCK RESIDENT 07/09/24 Metoprolol Succinate (Metoprolol Succinate Er) 50 Mg Tab, 1 TAB PO DAILY for 30 Days, #30 TAB 5 Refills Prov:RENAN POLLOCK RESIDENT 07/07/24 Clopidogrel Bisulfate (Plavix) 75 Mg Tab, 1 TAB PO DAILY, #90 TAB 1 Refill Prov:JONATHAN ALBERT MD 01/21/23 Current Medications Current Medications Medications (Trade) Dose Ordered Sig/Tai Route PRN Reason Start Time Stop Time Status Last Admin Aspirin 81 mg DAILY PO 09/19/24 10:00 09/19/24 09:47 Clopidogrel Bisulfate (Plavix) 75 mg DAILY PO 09/19/24 10:00 Atorvastatin Calcium (Lipitor) 20 mg HS PO 09/18/24 22:00 09/19/24 00:39 Hydralazine HCl (Apresoline Injection) 10 mg Q6HP PRN IV SBP>150 09/18/24 19:30 09/19/24 06:45 Metoprolol Tartrate (Lopressor Tablet) 25 mg BID PO 09/18/24 22:00 09/19/24 09:47 Diagnostic Test (Pha) (Accu-Chek Comfort Curve T) 1 strip ACHS 09/18/24 22:00 09/19/24 11:43 Insulin Human Regular (InsuLIN R) ACHS SC 09/18/24 22:00 09/19/24 11:57 Dextrose 50 ml UD PRN IV Blood Sugar LESS THAN 60 09/18/24 19:30 Sodium Chloride (Saline Lock Ns) 10 ml Q8HR IV 09/18/24 22:00 09/19/24 14:08 Acetaminophen/ Hydrocodone Bitart ([place] 5/325MG Tab) 1 tab Q4HP PRN PO MODERATE PAIN (4-6 PAIN SCALE) 09/18/24 19:30 Ondansetron HCl (Zofran) 4 mg Q4HP PRN IV NAUSEA / VOMITING 09/18/24 19:30 Docusate Sodium (Colace Capsule) 100 mg BIDPRN PRN PO FOR CONSTIPATION 09/18/24 19:30 Acetaminophen (Tylenol Tablet) 650 mg Q6HP PRN PO PAIN SCALE 1-3 OR TEMP>100.4 09/18/24 19:30 Nitroglycerin (Ntrostat Sublingual) 0.4 mg Q5MINP PRN SL FOR CHEST PAIN 09/18/24 21:30 Morphine Sulfate 2 mg Q30M PRN IV FOR CHEST PAIN 09/18/24 21:30 Sodium Chloride 1,000 ml @ 100 mls/hr Q10H IV 09/19/24 11:45 09/19/24 13:59 DC 09/19/24 12:07 Bumetanide 25 mg/ Miscellaneous 100 ml @ 4 mls/hr Q24H IV 09/19/24 14:00 Family History: Alzheimer's disease G8 MOTHER, Depression G8 FATHER, Diabetes mellitus G8 FATHER, Hypertension G8 MOTHER, Review of Systems HEENT-denies headache, denies vision changes, no hearing issue, denies neck complaints, denies throat issues Respiratory system-denies cough, denies shortness of breath Cardiovascular system-denies chest pain, denies palpitations Abdomen-denies abdominal pain, denies nausea, denies vomiting, denies constipation or diarrhea Musculoskeletal--positive swelling in the legs, denies pain in the extremities Genitourinary-denies urinary symptoms like dysuria, stream issues Neuro-denies dizziness, denies seizures,, positive left-sided weakness on cheeks and left upper extremity Psychiatric-denies psychiatric history H&P Exam Vital Signs/I&O Vital Sign Date Time Temp Pulse Resp B/P (MAP) Pulse Ox O2 Delivery O2 Flow Rate FiO2 09/19/24 13:00 98.0 75 18 139/78 (98) 98 98.0 09/19/24 08:37 Room Air* 0 21 Intake and Output 09/18/24 09/19/24 19:00 07:00 Intake Total 1000 ml Balance 1000 ml Intake IV Total 1000 ml Physical Exam General-not in any distress HEENT-normocephalic, no icterus, no pallor, neck supple Respiratory-fair air entry bilateral, no rhonchi, no wheeze [id number] heard, no murmurs appreciated Abdominal-soft, nontender, nondistended Musculoskeletal-3+ pedal edema, no calf tenderness Genitourinary-deferred Neuro-awake alert oriented x3, Psychiatric-not agitated, cooperative, Labs/Diagnostic Data Labs/Diagnostic Data Laboratory Tests Test 09/19/24 11:40 09/19/24 06:14 09/19/24 05:11 09/19/24 00:27 Range/Units POC Glucose 168 H 119 H 83 70-106 mg/dl White Blood Count 10.4 4.4-10.8 10^3/uL Red Blood Count 3.20 L 4.5-5.90 10^6/uL Hemoglobin 9.7 L 13.5-17.5 g/dL Hematocrit 28.9 L 41.0-53.0 % Mean Corpuscular Volume 90.1 80.0-100.0 fL Mean Corpuscular Hemoglobin 30.3 28.0-32.0 pg Mean Corpuscular Hemoglobin Concent 33.6 32.0-36.0 g/dL Red Cell Distribution Width 15.0 H 11.8-14.3 % Platelet Count 321 140-450 10^3/uL Mean Platelet Volume 8.2 6.9-10.8 fL Neutrophils (%) (Auto) 62.0 37.0-80.0 % Lymphocytes (%) (Auto) 20.0 10.0-50.0 % Monocytes (%) (Auto) 10.8 0.0-12.0 % Eosinophils (%) (Auto) 6.0 0.0-7.0 % Basophils (%) (Auto) 1.2 0.0-2.0 % Neutrophils # (Auto) 6.5 1.6-8.6 10 ^3/uL Lymphocytes # (Auto) 2.1 0.4-5.4 10 ^3/uL Monocytes # (Auto) 1.1 0-1.3 10 ^3/uL Eosinophils # (Auto) 0.6 0-0.8 10 ^3/uL Basophils # (Auto) 0.1 0-0.2 10 ^3/uL Nucleated Red Blood Cells 0.0 % Sodium Level 141 136-145 mmol/L Potassium Level 4.4 3.5-5.1 mmol/L Chloride Level 108 H 98-107 mmol/L Carbon Dioxide Level 23 20-31 mmol/L Anion Gap 10 5-15 Blood Urea Nitrogen 68 H 9-23 mg/dL Creatinine 6.46 H 0.700-1.30 mg/dL Glomerular Filtration Rate Calc 10 >90 mL/min BUN/Creatinine Ratio 10.5 10.0-20.0 Serum Glucose 131 H 74-106 mg/dL Calcium Level 9.3 8.7-10.4 mg/dL Total Bilirubin 0.3 0.2-1.0 mg/dL Aspartate Amino Transferase (AST) 18 13-40 U/L Alanine Aminotransferase (ALT) 14 7-40 U/L Alkaline Phosphatase 72 46-116 U/L Troponin I High Sensitivity 93 *H </=54 ng/L Total Protein 6.2 5.7-8.2 g/dL Albumin 3.7 3.2-4.8 g/dL Test 09/18/24 22:03 09/18/24 14:17 09/18/24 13:23 09/18/24 00:00 Range/Units Troponin I High Sensitivity 123 *H 122 *H 131 *H </=54 ng/L White Blood Count 8.8 4.4-10.8 10^3/uL Red Blood Count 3.38 L 4.5-5.90 10^6/uL Hemoglobin 10.2 L 13.5-17.5 g/dL Hematocrit 30.3 L 41.0-53.0 % Mean Corpuscular Volume 89.5 80.0-100.0 fL Mean Corpuscular Hemoglobin 30.3 28.0-32.0 pg Mean Corpuscular Hemoglobin Concent 33.8 32.0-36.0 g/dL Red Cell Distribution Width 14.8 H 11.8-14.3 % Platelet Count 359 140-450 10^3/uL Mean Platelet Volume 8.3 6.9-10.8 fL Neutrophils (%) (Auto) 64.1 37.0-80.0 % Lymphocytes (%) (Auto) 22.0 10.0-50.0 % Monocytes (%) (Auto) 7.8 0.0-12.0 % Eosinophils (%) (Auto) 4.6 0.0-7.0 % Basophils (%) (Auto) 1.5 0.0-2.0 % Neutrophils # (Auto) 5.6 1.6-8.6 10 ^3/uL Lymphocytes # (Auto) 1.9 0.4-5.4 10 ^3/uL Monocytes # (Auto) 0.7 0-1.3 10 ^3/uL Eosinophils # (Auto) 0.4 0-0.8 10 ^3/uL Basophils # (Auto) 0.1 0-0.2 10 ^3/uL Nucleated Red Blood Cells 0.0 % Sodium Level 137 136-145 mmol/L Potassium Level 4.9 3.5-5.1 mmol/L Chloride Level 104 98-107 mmol/L Carbon Dioxide Level 24 20-31 mmol/L Anion Gap 9 5-15 Blood Urea Nitrogen 72 H 9-23 mg/dL Creatinine 6.55 H 0.700-1.30 mg/dL Glomerular Filtration Rate Calc 9 >90 mL/min BUN/Creatinine Ratio 11.0 10.0-20.0 Serum Glucose 167 H 74-106 mg/dL Lactic Acid Level 1.0 0.4-2.0 mmol/L Calcium Level 9.7 8.7-10.4 mg/dL Total Bilirubin 0.3 0.2-1.0 mg/dL Direct Bilirubin 0.1 <0.3 mg/dL Aspartate Amino Transferase (AST) 21 13-40 U/L Alanine Aminotransferase (ALT) 18 7-40 U/L Alkaline Phosphatase 88 46-116 U/L Total Protein 6.5 5.7-8.2 g/dL Albumin 4.0 3.2-4.8 g/dL Lipase 48 12-53 U/L Urine Color Light-yellow Yellow Urine Clarity Turbid H Clear Urine pH 6.0 5.0-9.0 Urine Specific [place] 1.012 1.001-1.035 Urine Protein 3+ H Negative Urine Ketones Negative Negative Urine Blood Trace H Negative /uL Urine Nitrite Negative Negative Urine Bilirubin Negative Negative Urine Urobilinogen Normal Negative mg/dL Urine Leukocyte Esterase Negative Negative /uL Urine RBC 1 0 - 3 /hpf Urine WBC 4 0 - 3 /hpf Urine Squamous Epithelial Cells Few <5 /hpf Urine Bacteria Few H None Seen /hpf Urine Hyaline Casts Few 0 - 2 /lpf Urine Mucus Few None Seen Urine Glucose 2+ H Normal mg/dL Assessment Acute kidney injury on Chronic kidney disease four-cardiorenal etiology Congestive heart failure reduced ejection Hypertension Underlying diabetic nephropathy ckd-- patient Recommendations Bumex drip IV given significant pedal edema DC IV fluids Evaluate SUPERVISOR COATING needs daily Patient to follow-up with after DC We will follow Plan discussed with: Patient RITO KAMINSKI MD Sep 19, 2024 14:02
[2024-09-19] MEDS: BUMETANIDE INJECTION 25 MG in GIVE UN-DILUTED 0 ML IV SCH (17:00)
[2024-09-20] VITALS (9 sets, daily range): BP systolic 138–182; BP diastolic 71–99; PULSE 72–85; RESP 18–19; TEMP 97.5–98.3; O2SAT 95–98
[2024-09-20] MEDS: HYDROcodone-ACET 5/325MG TAB PO PRN (01:58)
[2024-09-20 07:01] LABS: Anion Gap 10 (5-15); Carbon Dioxide 24 mmol/L (20-31); Chloride 106 mmol/L (98-107); Potassium 4.3 mmol/L (3.5-5.1); Sodium 140 mmol/L (136-145)
[2024-09-20 07:03] LABS: Calcium 9.9 mg/dL (8.7-10.4)
[2024-09-20 07:07] LABS: BUN/Creatinine Ratio 10.6 (10.0-20.0)
[2024-09-20 07:08] LABS: Blood Urea Nitrogen 67 mg/dL (9-23); Glucose 134 mg/dL (74-106)
[2024-09-20 12:38] LABS: Rapid Influenza A Negative (Negative); Rapid Influenza B Negative (Negative)
[2024-09-20 12:39] LABS: COVID19 ANTIGEN SOFIA FIA NEGATIVE (NEGATIVE)
--- NOTE | 2024-09-20 15:32 | DVHPN2 ---
Progress Note Date Seen: Sep 20, 2024 Medical Necessity Reason Pt with a Central, PICC or Fol: No Subjective Patient reports: No new complaints Review of Systems: HEENT:Normal, CVS:Normal, RESPIRATORY:Normal, GI:Normal, :Normal, MSK:Normal, NEURO:Normal Objective vital signs Vital Sign Date Time Temp Pulse Resp B/P (MAP) Pulse Ox O2 Delivery O2 Flow Rate FiO2 09/20/24 14:24 73 138/71 (93) 09/20/24 13:00 97.5 18 98 97.5 09/20/24 08:00 Room Air* 0 21 Total Intake and Output 09/19/24 09/19/24 09/20/24 14:59 22:59 06:59 Intake Total 226 ml 300 ml Balance 226 ml 300 ml medications Current Medications Medications Dose Ordered Sig/Tai Route Start Time Stop Time Status Last Admin Dose Admin Aspirin 81 mg DAILY PO 09/19/24 10:00 09/20/24 10:44 81 MG Clopidogrel Bisulfate 75 mg DAILY PO 09/19/24 10:00 Atorvastatin Calcium 20 mg HS PO 09/18/24 22:00 09/19/24 21:23 20 MG Hydralazine HCl 10 mg Q6HP PRN IV 09/18/24 19:30 09/20/24 09:04 10 MG Metoprolol Tartrate 25 mg BID PO 09/18/24 22:00 09/20/24 10:45 25 MG Diagnostic Test (Pha) 1 strip ACHS 09/18/24 22:00 09/20/24 11:43 1 STRIP Insulin Human Regular ACHS SC 09/18/24 22:00 09/20/24 12:06 3 UNITS Dextrose 50 ml UD PRN IV 09/18/24 19:30 Sodium Chloride 10 ml Q8HR IV 09/18/24 22:00 09/20/24 14:17 10 ML Acetaminophen/ Hydrocodone Bitart 1 tab Q4HP PRN PO 09/18/24 19:30 09/20/24 15:24 1 TAB Ondansetron HCl 4 mg Q4HP PRN IV 09/18/24 19:30 Docusate Sodium 100 mg BIDPRN PRN PO 09/18/24 19:30 Acetaminophen 650 mg Q6HP PRN PO 09/18/24 19:30 Nitroglycerin 0.4 mg Q5MINP PRN SL 09/18/24 21:30 Morphine Sulfate 2 mg Q30M PRN IV 09/18/24 21:30 Bumetanide 25 mg/ Miscellaneous 100 ml @ 4 mls/hr Q24H IV 09/19/24 14:00 09/20/24 14:24 4 MLS/HR Metolazone 5 mg DAILY PO 09/21/24 10:00 Examination: GENERAL:Normal, HEENT:Normal, NECK:Normal, LUNGS:Normal, CVS:Normal, ABDOMEN:Normal, MSK:Abnormal (edema), SKIN:Normal, NEURO:Normal, :Normal laboratory and microbiology Laboratory Tests 09/20/24 06:28 09/19/24 05:11 Test 09/20/24 06:28 Range/Units Serum Glucose 134 H 74-106 mg/dL Problem List/Assessment/Plan Problem List/Assessment/Plan Acute kidney injury on Chronic kidney disease four -cardiorenal etiology ckd-- patient Congestive heart failure reduced ejection Hypertension Underlying diabetic nephropathy Recommendations Bumex drip IV given significant pedal edema/metolozone 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--- Patient to follow-up with after DC We will follow Kidney ultrasound from 09/13/2024--within normal limit Plan discussed with: Patient My Orders My Orders Orders - RITO KAMINSKI MD Procedure Category Date Status Time Basic Metabolic Panel LAB 09/21/24 Verified 05:00 Basic Metabolic Panel LAB 09/22/24 Verified 05:00 Basic Metabolic Panel LAB 09/23/24 Verified 05:00 Basic Metabolic Panel LAB 09/24/24 Verified 05:00 Basic Metabolic Panel LAB 09/25/24 Verified 05:00 Basic Metabolic Panel LAB 09/26/24 Verified 05:00 Acute Hepatitis Panel LAB 09/21/24 Verified 04:00 RITO KAMINSKI MD Sep 20, 2024 15:32
--- NOTE | 2024-09-20 19:43 | DVHPN2 ---
Reviewed: Care Plan, H&P, Labs, Medications, Radiology Changes from previous H/P or p: No Changes General: Per HPI Eyes: No Pain, No Vision change, No Conjunctivae inflammation, No Eyelid inflammation, No Other, No Redness ENT: No Ear pain, No Ear discharge, No Nose pain, No Nose discharge, No Nose congestion, No Mouth pain, No Mouth swelling, No Throat pain, No Throat swelling, No Other Cardiovascular: No Chest Pain, No Palpitations, No Orthopnea, No Paroxysmal Noc. Dyspnea; Edema; No Lt Headedness; Other (Left arm pain) Respiratory: No Cough, No Dry, No Shortness of breath, No SOB with excertion, No Wheezing, No Hemoptysis, No Pleuritic Pain, No Sputum, No Other Gastrointestinal: No Nausea, No Vomiting, No Abdominal Pain, No Diarrhea, No Constipation, No Melena, No Hematochezia, No Other Genitourinary: No Dysuria, No Frequency, No Incontinence, No Hematuria, No Retention, No Other Musculoskeletal: No other, No neck pain, No shoulder pain, No arm pain; back pain; No hand pain, No leg pain, No foot pain Skin: No Rash, No Lesions, No Jaundice, No Bruising, No Other Objective Vitals Vital Signs Date Time Temp Pulse Resp B/P (MAP) Pulse Ox O2 Delivery O2 Flow Rate FiO2 09/20/24 17:00 98.2 72 18 156/87 (110) 96 98.2 09/20/24 08:00 Room Air* 0 21 Intake/Output Intake and Output 09/20/24 07:00 Intake Total 526 ml Balance 526 ml Intake Oral 520 ml IV Total 6 ml # Voids 6 # Bowel Movements 2 Medications Current Medications Medications Dose Ordered Sig/Tai Route Start Time Stop Time Status Last Admin Dose Admin Aspirin 81 mg DAILY PO 09/19/24 10:00 09/20/24 10:44 81 MG Clopidogrel Bisulfate 75 mg DAILY PO 09/19/24 10:00 Atorvastatin Calcium 20 mg HS PO 09/18/24 22:00 09/19/24 21:23 20 MG Hydralazine HCl 10 mg Q6HP PRN IV 09/18/24 19:30 09/20/24 09:04 10 MG Metoprolol Tartrate 25 mg BID PO 09/18/24 22:00 09/20/24 10:45 25 MG Diagnostic Test (Pha) 1 strip ACHS 09/18/24 22:00 09/20/24 16:23 1 STRIP Insulin Human Regular ACHS SC 09/18/24 22:00 09/20/24 12:06 3 UNITS Dextrose 50 ml UD PRN IV 09/18/24 19:30 Sodium Chloride 10 ml Q8HR IV 09/18/24 22:00 09/20/24 14:17 10 ML Acetaminophen/ Hydrocodone Bitart 1 tab Q4HP PRN PO 09/18/24 19:30 09/20/24 15:24 1 TAB Ondansetron HCl 4 mg Q4HP PRN IV 09/18/24 19:30 Docusate Sodium 100 mg BIDPRN PRN PO 09/18/24 19:30 Acetaminophen 650 mg Q6HP PRN PO 09/18/24 19:30 Nitroglycerin 0.4 mg Q5MINP PRN SL 09/18/24 21:30 Morphine Sulfate 2 mg Q30M PRN IV 09/18/24 21:30 Bumetanide 25 mg/ Miscellaneous 100 ml @ 4 mls/hr Q24H IV 09/19/24 14:00 09/20/24 14:24 4 MLS/HR Metolazone 5 mg DAILY PO 09/21/24 10:00 Laboratory Results Laboratory Tests 09/19/24 05:11 09/20/24 06:28 Chemistry Test 09/20/24 06:28 Calcium Level 9.9 mg/dL (8.7-10.4) Urinalysis Test 09/18/24 00:00 Urine Color Light-yellow (Yellow) Urine Clarity Turbid (Clear) H Urine pH 6.0 (5.0-9.0) Urine Specific [place] 1.012 (1.001-1.035) Urine Protein 3+ (Negative) H Urine Ketones Negative (Negative) Urine Blood Trace /uL (Negative) H Urine Nitrite Negative (Negative) Urine Bilirubin Negative (Negative) Urine Urobilinogen Normal mg/dL (Negative) Urine Leukocyte Esterase Negative /uL (Negative) Urine RBC 1 /hpf (0 - 3) Urine WBC 4 /hpf (0 - 3) Urine Squamous Epithelial Cells Few /hpf (<5) Urine Bacteria Few /hpf (None Seen) H Urine Hyaline Casts Few /lpf (0 - 2) Urine Mucus Few (None Seen) Urine Glucose 2+ mg/dL (Normal) H Assessment/Plan Assessment/Plan The patient is a 53-year-old male with past medical history of CVA, DM, hyperlipidemia, [place], and hypertension who presented to [facility] ED with complaint of generalized weakness. Patient reports symptoms progressively get worse with unsteady get, associated headache, feeling left arm/shoulder, back, and bilateral foot pain, facial numbness, edema, getting worse that prompted this visit. Patient was seen and evaluated in the ED, laboratory data shows WBC 8.8, hemoglobin 10.2, hematocrit 30.3, platelets 359, sodium 137, potassium 4.9, BUN 72, creatinine 6.55, GFR nine, glucose 167, troponin 131, lipase 48, blood pressure 139/82, heart rate 82, temperature 98.0 F, O2 saturation 95% on room air. Please see medication orders section in the computer. On my assessment, patient denies chest pain, no headache, no dizziness, no shortness of breath, no nausea, no vomiting, no fever, no chills. Patient was admitted for further evaluation and medical management. Acute renal failure on CKD Left-sided weakness Elevated troponin Diabetes mellitus with hyperglycemia cardiorenal syndrome b/l leg edema 09/19/2024: to be evaluated by nephro for possible HD. Nephro started on Bumex drip 09/20/2024: adding metolazone, on drip. per Nephro, continue on drip. when off the drip and pt is not initiated on HD, d/c, otherwise, pt is CkD stage 5 and can benefit from HD if high risk for re-admission/worsening renal fx Plan discussed with: Patient, Spouse My Orders Orders - ILYA DAY DO Procedure Category Date Status Time Metolazone (Zaroxolyn) PHA 09/21/24 In Process 10:00 Date of Service: Sep 20, 2024 Billing Provider: ILYA DAY DO Common Visit Codes: [id number] INP/OBS CARE(HIGH) ILYA DAY DO Sep 20, 2024 19:43
[2024-09-21] VITALS (7 sets, daily range): BP systolic 132–176; BP diastolic 70–93; PULSE 74–84; RESP 18–20; TEMP 97.5–99.1; O2SAT 94–97
[2024-09-21 06:42] LABS: Chloride 104 mmol/L (98-107); Sodium 140 mmol/L (136-145)
[2024-09-21 06:43] LABS: Anion Gap 12 (5-15); Carbon Dioxide 24 mmol/L (20-31)
[2024-09-21 06:48] LABS: BUN/Creatinine Ratio 10.2 (10.0-20.0)
[2024-09-21 06:51] LABS: Blood Urea Nitrogen 67 mg/dL (9-23); Glucose 109 mg/dL (74-106)
[2024-09-21] MEDS: metOLazone 5 MG TAB PO SCH (09:23)
--- NOTE | 2024-09-21 09:37 | ECG ---
[facility] Test Date: 2024-09-18 Test Time: 12:27:35 Pat Name: Alex KC Department: ER Room: 0245T A Gender: M Manager Terminal: CECILIA : 1970 Requested By: DENISE SALGADO Order Number: [id number] Reading MD: Darryl Montenegro Measurements Intervals Alvin Rate: 69 P: 65 PA: 119 QRS: 36 QRSD: 77 T: -59 QT: 411 QTc: 441 Interpretive Statements Sinus rhythm Borderline short PA interval Probable inferior infarct, age indeterminate Lateral leads are also involved Electronically Signed On 09-24-2024 9:50:57 PST by Darryl Montenegro Please click the below link to view image of tracing.
[2024-09-21 10:08] LABS: Hepatitis A Ab IgM Negative; Hepatitis B Core IgM Negative (Negative); Hepatitis B Surface Antigen Negative (Negative); Hepatitis C Antibody Negative (Negative)
--- NOTE | 2024-09-21 13:18 | DVHPN2 ---
Progress Note Date Seen: Sep 21, 2024 Medical Necessity Reason Pt with a Central, PICC or Fol: No Subjective Review of Systems: MSK:Abnormal Other Systems: Patient seen and examined by myself today in follow-up Objective vital signs Vital Sign Date Time Temp Pulse Resp B/P (MAP) Pulse Ox O2 Delivery O2 Flow Rate FiO2 09/21/24 10:22 83 09/21/24 09:23 154/83 09/21/24 09:00 97.7 18 95 97.7 09/21/24 07:45 Room Air* 0 21 Total Intake and Output 09/20/24 09/20/24 09/21/24 15:00 23:00 07:00 Intake Total 528 ml 520 ml Output Total 400 ml Balance 528 ml 120 ml medications Current Medications Medications Dose Ordered Sig/Tai Route Start Time Stop Time Status Last Admin Dose Admin Aspirin 81 mg DAILY PO 09/19/24 10:00 09/21/24 09:22 81 MG Clopidogrel Bisulfate 75 mg DAILY PO 09/19/24 10:00 Atorvastatin Calcium 20 mg HS PO 09/18/24 22:00 09/20/24 21:51 20 MG Hydralazine HCl 10 mg Q6HP PRN IV 09/18/24 19:30 09/20/24 21:52 10 MG Metoprolol Tartrate 25 mg BID PO 09/18/24 22:00 09/21/24 09:22 25 MG Diagnostic Test (Pha) 1 strip ACHS 09/18/24 22:00 09/21/24 11:28 1 STRIP Insulin Human Regular ACHS SC 09/18/24 22:00 09/21/24 12:19 4 UNITS Dextrose 50 ml UD PRN IV 09/18/24 19:30 Sodium Chloride 10 ml Q8HR IV 09/18/24 22:00 09/21/24 06:03 10 ML Acetaminophen/ Hydrocodone Bitart 1 tab Q4HP PRN PO 09/18/24 19:30 09/20/24 21:51 1 TAB Ondansetron HCl 4 mg Q4HP PRN IV 09/18/24 19:30 Docusate Sodium 100 mg BIDPRN PRN PO 09/18/24 19:30 Acetaminophen 650 mg Q6HP PRN PO 09/18/24 19:30 Nitroglycerin 0.4 mg Q5MINP PRN SL 09/18/24 21:30 Morphine Sulfate 2 mg Q30M PRN IV 09/18/24 21:30 Bumetanide 25 mg/ Miscellaneous 100 ml @ 4 mls/hr Q24H IV 09/19/24 14:00 09/20/24 14:24 4 MLS/HR Metolazone 5 mg DAILY PO 09/21/24 10:00 09/21/24 09:23 5 MG Examination: LUNGS:Normal, CVS:Normal, MSK:Abnormal laboratory and microbiology Laboratory Tests 09/21/24 05:49 09/19/24 05:11 Test 09/21/24 05:49 Range/Units Serum Glucose 109 H 74-106 mg/dL Problem List/Assessment/Plan Problem List/Assessment/Plan Chronic Kidney Disease stage 5 secondary diabetic nephropathy now end-stage renal disease requiring hemodialysis 3 times a weekly Hypertension Diabetes mellitus type 2 Congestive heart failure, ejection fraction 40% Anemia of chronic kidney disease Recommendations Consents for tunneled IJ hemodialysis catheter on hemodialysis I discussed risks and benefit hemodialysis with the patient his and the daughter at the bedside IR for tunneled hemodialysis catheter Check hep B surface antigen Hemodialysis tomorrow after catheter placement Social service consult for outpatient hemodialysis chair time Renal diet We will continue to follow up Plan discussed with: Patient, Spouse My Orders My Orders Orders - LEILA SWARTZ MD Procedure Category Date Status Time Vitamin D, 25-Hydroxy LAB 09/21/24 In Process 10:39 Urine Sodium LAB 09/21/24 Logged 10:39 Urine LAB 09/21/24 Logged Protein/Creatinine Urine Creatinine LAB 09/21/24 Logged 10:39 Phosphorus LAB 09/21/24 In Process 10:39 Magnesium LAB 09/21/24 In Process 10:39 Hepatitis C Antibody LAB 09/21/24 In Process 10:39 Hepatitis B Surface LAB 09/21/24 In Process Antigen 10:39 LEILA SWARTZ MD Sep 21, 2024 13:18
[2024-09-21 13:20] LABS: Magnesium 2.1 mg/dL (1.6-2.6)
[2024-09-21 13:22] LABS: Phosphorus 7.5 mg/dL (2.4-5.1)
[2024-09-21 14:03] LABS: Hepatitis B Surface Antigen Negative (Negative)
[2024-09-21 14:13] LABS: Hepatitis C Antibody Negative (Negative)
[2024-09-21 15:51] LABS: INR 0.99 (0.9-1.15); Partial Thromboplastin Time 27.3 SEC (24.5-34.5); Prothrombin Time 10.5 sec (9.3-11.8)
[2024-09-21] MEDS: DOCUSATE SOD 100 MG CAP PO PRN (21:27)
[2024-09-22] VITALS (13 sets, daily range): BP systolic 104–175; BP diastolic 65–97; PULSE 73–83; RESP 12–20; TEMP 97.9–98.6; O2SAT 91–99
[2024-09-22 06:43] LABS: Hematocrit 30.4 % (41.0-53.0); Hemoglobin 10.3 g/dL (13.5-17.5)
[2024-09-22 06:45] LABS: Anion Gap 10 (5-15); Carbon Dioxide 27 mmol/L (20-31); Chloride 102 mmol/L (98-107); Potassium 3.7 mmol/L (3.5-5.1); Sodium 139 mmol/L (136-145)
[2024-09-22 06:47] LABS: Calcium 9.5 mg/dL (8.7-10.4)
[2024-09-22 06:52] LABS: BUN/Creatinine Ratio 10.6 (10.0-20.0)
[2024-09-22 06:53] LABS: Blood Urea Nitrogen 75 mg/dL (9-23); Glucose 117 mg/dL (74-106)
[2024-09-22] MEDS ORDERED: SODIUM CHL 0.9% 1000 ML BAG XX ONE (07:00)
[2024-09-22] MEDS ORDERED: LIDOCAINE 2%HCL (LOCAL ANESTH.) INJ 10ml MDV ONE (08:59)
[2024-09-22] MEDS: HEPARIN SODIUM (PORCINE) 5000 UNITS/ML 1ML VIAL ONE (10:03)
[2024-09-22] MEDS ORDERED: fentaNYL CITRATE 100 MCG/2 ML VL ONE (10:03)
[2024-09-22] MEDS: MIDAZOLAM HCL 2MG/2ML 2ml VIAL (1mg/ml) ONE (10:04)
[2024-09-22] MEDS: LIDOCAINE 2%HCL (LOCAL ANESTH.) INJ 20ML MDV ONE (10:04)
--- NOTE | 2024-09-22 10:38 | DVHPN2 ---
Progress Note Date Seen: Sep 22, 2024 Medical Necessity Reason Pt with a Central, PICC or Fol: No Subjective Patient reports: No new complaints Other Systems: Patient seen and examined by myself today in follow-up Patient examined hemodialysis, blood pressure stable Objective vital signs Vital Sign Date Time Temp Pulse Resp B/P (MAP) Pulse Ox O2 Delivery O2 Flow Rate FiO2 09/22/24 05:00 97.9 73 18 131/70 (90) 96 97.9 09/21/24 20:00 Room Air* 0 21 Total Intake and Output 09/21/24 09/21/24 09/22/24 15:00 23:00 07:00 Intake Total 1140 ml 100 ml Output Total 1600 ml 200 ml Balance -460 ml -100 ml medications Current Medications Medications Dose Ordered Sig/Tai Route Start Time Stop Time Status Last Admin Dose Admin Aspirin 81 mg DAILY PO 09/19/24 10:00 09/21/24 09:22 81 MG Clopidogrel Bisulfate 75 mg DAILY PO 09/19/24 10:00 Atorvastatin Calcium 20 mg HS PO 09/18/24 22:00 09/21/24 21:27 20 MG Hydralazine HCl 10 mg Q6HP PRN IV 09/18/24 19:30 09/21/24 17:56 10 MG Metoprolol Tartrate 25 mg BID PO 09/18/24 22:00 09/21/24 21:28 25 MG Diagnostic Test (Pha) 1 strip ACHS 09/18/24 22:00 09/22/24 04:54 1 STRIP Insulin Human Regular ACHS SC 09/18/24 22:00 09/21/24 12:19 4 UNITS Dextrose 50 ml UD PRN IV 09/18/24 19:30 Sodium Chloride 10 ml Q8HR IV 09/18/24 22:00 09/22/24 04:55 10 ML Acetaminophen/ Hydrocodone Bitart 1 tab Q4HP PRN PO 09/18/24 19:30 09/21/24 19:52 1 TAB Ondansetron HCl 4 mg Q4HP PRN IV 09/18/24 19:30 Docusate Sodium 100 mg BIDPRN PRN PO 09/18/24 19:30 09/21/24 21:27 100 MG Acetaminophen 650 mg Q6HP PRN PO 09/18/24 19:30 Nitroglycerin 0.4 mg Q5MINP PRN SL 09/18/24 21:30 Morphine Sulfate 2 mg Q30M PRN IV 09/18/24 21:30 Bumetanide 25 mg/ Miscellaneous 100 ml @ 4 mls/hr Q24H IV 09/19/24 14:00 09/21/24 16:30 4 MLS/HR Metolazone 5 mg DAILY PO 09/21/24 10:00 09/21/24 09:23 5 MG Examination: LUNGS:Normal, CVS:Normal, MSK:Normal laboratory and microbiology Laboratory Tests 09/22/24 05:48 09/19/24 05:11 Test 09/22/24 05:48 Range/Units Serum Glucose 117 H 74-106 mg/dL Problem List/Assessment/Plan Problem List/Assessment/Plan Chronic Kidney Disease stage 5 secondary diabetic nephropathy now end-stage renal disease requiring hemodialysis 3 times a weekly Hypertension Diabetes mellitus type 2 Congestive heart failure, ejection fraction 40% Anemia of chronic kidney disease Recommendations Continue with UF to 3 L as tolerated Epogen 08527 IV post hemodialysis Social service consult for outpatient hemodialysis chair time Renal diet Hold Bumex drip We will continue to follow up Plan discussed with: Patient My Orders My Orders Orders - LEILA SWARTZ MD Procedure Category Date Status Time Urine Sodium LAB 09/21/24 Logged 10:39 * Radiologist Consult CONS 09/21/24 Transmitted 13:19 Hemodialysis Orders ORDERS 09/22/24 Transmitted 07:00 Dialysis Nursing MITESH 09/22/24 In Process Message 07:00 Document Fluid Input MITESH 09/22/24 In Process And Outpu 07:00 Epoetin Cosme-Epbx PHA 09/22/24 In Process (Retacrit) 21:00 * Wind Energy Engineer CONS 09/21/24 Transmitted Consult Urine LAB 09/21/24 Logged Protein/Creatinine 10:39 LEILA SWARTZ MD Sep 22, 2024 10:38
[2024-09-22] MEDS: ceFAZolin 1GM/50ML 50 ML IV ONE (10:54)
--- NOTE | 2024-09-22 12:10 | DVH ---
XY Insertion of Venous Cath, HISTORY: TD CATH PLACEMENT PROCEDURE: Informed consent was obtained. The patient was placed supine on the interventional table. 1 gram of Ancef was given. A limited localization ultrasound of the right neck base was obtained. The right neck base and upper chest were prepped with chlorhexidine which was allowed to dry and draped in the usual sterile fashion. Time out was performed. IV sedation was administered. The skin and the soft tissues were infiltrated with 1% Lidocaine mixed with Epinephrine. With real-time ultrasound rafael dance, the internal jugular vein was accessed with a micropuncture kit, and an image documenting benítez ncy was recorded to PACS. A subcutaneous tunneled tract was created from the right upper chest to the venotomy site. A 14.5 [place] Path, 19 cm long hemodialysis catheter was advanced through the t unneled tract. Fluoroscopy was used to advance a guidewire through the internal jugular vein into the inferior vena cava. Following serial dilatation, a 15 Indian peel-away sheath was introduced, though which was adva nced the catheter into the right atrium. The catheter tip position was confirmed with fluoroscopy. Th ere was satisfactory flow in both lumens. The catheter lumens were flushed with saline and heparin wa s left indwelling in the catheter. A post-procedure image of the chest was obtained. The neck incisio n site was closed with a Dermabond and dressed sterilely. The catheter was sutured at the skin surfac e and exit site also dressed sterilely. No immediate complication was identified. DAP 65.99 FLUOROSCOPY TIME: 0.9 minutes. SEDATION: Dr. Pedro Calderon was personally responsible for the administration of moderate sedation during the procedure performed, including the use of an independent trained observer who had no other duties during the procedure. The drugs utilized were IV fentanyl and versed (see nursing log for details). The total time of supervision by the attending physician was approximately 30 minutes. FINDINGS: Widely patent right IJV. Post procedure image demonstrates smooth course of the hemodialysi s catheter with the tip in the right atrium. IMPRESSION: Successful placement of 14.5 [place] Path, 19 cm long hemodialysis catheter through right college intern al jugular vein. Plan: Please contact IR for removal when no longer needed.
[2024-09-22] MEDS: SEVELAMER 800 MG TAB PO SCH (12:55)
--- NOTE | 2024-09-22 14:17 | DVHPN2 ---
Reviewed: Care Plan, H&P, Labs, Medications, Radiology Changes from previous H/P or p: No Changes General: Per HPI Eyes: No Pain, No Vision change, No Conjunctivae inflammation, No Eyelid inflammation, No Other, No Redness ENT: No Ear pain, No Ear discharge, No Nose pain, No Nose discharge, No Nose congestion, No Mouth pain, No Mouth swelling, No Throat pain, No Throat swelling, No Other Cardiovascular: No Chest Pain, No Palpitations, No Orthopnea, No Paroxysmal Noc. Dyspnea; Edema; No Lt Headedness; Other (Left arm pain) Respiratory: No Cough, No Dry, No Shortness of breath, No SOB with excertion, No Wheezing, No Hemoptysis, No Pleuritic Pain, No Sputum, No Other Gastrointestinal: No Nausea, No Vomiting, No Abdominal Pain, No Diarrhea, No Constipation, No Melena, No Hematochezia, No Other Genitourinary: No Dysuria, No Frequency, No Incontinence, No Hematuria, No Retention, No Other Musculoskeletal: No other, No neck pain, No shoulder pain, No arm pain; back pain; No hand pain, No leg pain, No foot pain Skin: No Rash, No Lesions, No Jaundice, No Bruising, No Other Objective Vitals Vital Signs Date Time Temp Pulse Resp B/P (MAP) Pulse Ox O2 Delivery O2 Flow Rate FiO2 09/22/24 12:48 81 167/89 09/22/24 12:08 12 91 09/22/24 09:00 98.6 98.6 09/22/24 08:00 Room Air* 0 21 Intake/Output Intake and Output 09/22/24 07:00 Intake Total 1240 ml Output Total 1800 ml Balance -560 ml Intake Oral 1240 ml Output Urine Total 1800 ml Medications Current Medications Medications Dose Ordered Sig/Tai Route Start Time Stop Time Status Last Admin Dose Admin Aspirin 81 mg DAILY PO 09/19/24 10:00 09/22/24 12:47 81 MG Clopidogrel Bisulfate 75 mg DAILY PO 09/19/24 10:00 Atorvastatin Calcium 20 mg HS PO 09/18/24 22:00 09/21/24 21:27 20 MG Hydralazine HCl 10 mg Q6HP PRN IV 09/18/24 19:30 09/21/24 17:56 10 MG Metoprolol Tartrate 25 mg BID PO 09/18/24 22:00 09/22/24 12:48 25 MG Diagnostic Test (Pha) 1 strip ACHS 09/18/24 22:00 09/22/24 11:30 1 STRIP Insulin Human Regular ACHS SC 09/18/24 22:00 09/21/24 12:19 4 UNITS Dextrose 50 ml UD PRN IV 09/18/24 19:30 Sodium Chloride 10 ml Q8HR IV 09/18/24 22:00 09/22/24 04:55 10 ML Acetaminophen/ Hydrocodone Bitart 1 tab Q4HP PRN PO 09/18/24 19:30 09/21/24 19:52 1 TAB Ondansetron HCl 4 mg Q4HP PRN IV 09/18/24 19:30 Docusate Sodium 100 mg BIDPRN PRN PO 09/18/24 19:30 09/21/24 21:27 100 MG Acetaminophen 650 mg Q6HP PRN PO 09/18/24 19:30 Nitroglycerin 0.4 mg Q5MINP PRN SL 09/18/24 21:30 Morphine Sulfate 2 mg Q30M PRN IV 09/18/24 21:30 Sevelamer HCl 2,400 mg TIDWM PO 09/22/24 12:00 09/22/24 12:55 2,400 MG Laboratory Results Laboratory Tests 09/19/24 05:11 09/22/24 05:48 Chemistry Test 09/22/24 05:48 Calcium Level 9.5 mg/dL (8.7-10.4) Coagulation Test 09/21/24 15:09 Prothrombin Time 10.5 sec (9.3-11.8) Prothrombin Time INR 0.99 (0.9-1.15) Activated Partial Thromboplast Time 27.3 SEC (24.5-34.5) Urinalysis Test 09/18/24 00:00 Urine Color Light-yellow (Yellow) Urine Clarity Turbid (Clear) H Urine pH 6.0 (5.0-9.0) Urine Specific [place] 1.012 (1.001-1.035) Urine Protein 3+ (Negative) H Urine Ketones Negative (Negative) Urine Blood Trace /uL (Negative) H Urine Nitrite Negative (Negative) Urine Bilirubin Negative (Negative) Urine Urobilinogen Normal mg/dL (Negative) Urine Leukocyte Esterase Negative /uL (Negative) Urine RBC 1 /hpf (0 - 3) Urine WBC 4 /hpf (0 - 3) Urine Squamous Epithelial Cells Few /hpf (<5) Urine Bacteria Few /hpf (None Seen) H Urine Hyaline Casts Few /lpf (0 - 2) Urine Mucus Few (None Seen) Urine Glucose 2+ mg/dL (Normal) H Assessment/Plan Assessment/Plan The patient is a 53-year-old male with past medical history of CVA, DM, hyperlipidemia, [place], and hypertension who presented to [facility] ED with complaint of generalized weakness. Patient reports symptoms progressively get worse with unsteady get, associated headache, feeling left arm/shoulder, back, and bilateral foot pain, facial numbness, edema, getting worse that prompted this visit. Patient was seen and evaluated in the ED, laboratory data shows WBC 8.8, hemoglobin 10.2, hematocrit 30.3, platelets 359, sodium 137, potassium 4.9, BUN 72, creatinine 6.55, GFR nine, glucose 167, troponin 131, lipase 48, blood pressure 139/82, heart rate 82, temperature 98.0 F, O2 saturation 95% on room air. Please see medication orders section in the computer. On my assessment, patient denies chest pain, no headache, no dizziness, no shortness of breath, no nausea, no vomiting, no fever, no chills. Patient was admitted for further evaluation and medical management. Acute renal failure on CKD Left-sided weakness Elevated troponin Diabetes mellitus with hyperglycemia cardiorenal syndrome b/l leg edema 09/19/2024: to be evaluated by nephro for possible HD. Nephro started on Bumex drip 09/20/2024: adding metolazone, on drip. per Nephro, continue on drip. when off the drip and pt is not initiated on HD, d/c, otherwise, pt is CkD stage 5 and can benefit from HD if high risk for re-admission/worsening renal fx 09/21/2024: nephro to start on HD. discussed with pt, pt to have catheter placed Plan discussed with: Patient Date of Service: Sep 21, 2024 Billing Provider: ILYA DAY DO Common Visit Codes: [id number] INP/OBS CARE(HIGH) ILYA DAY DO Sep 22, 2024 14:17
--- NOTE | 2024-09-22 20:23 | DVHPN2 ---
Reviewed: Care Plan, H&P, Labs, Medications, Radiology Changes from previous H/P or p: No Changes General: Per HPI Eyes: No Pain, No Vision change, No Conjunctivae inflammation, No Eyelid inflammation, No Other, No Redness ENT: No Ear pain, No Ear discharge, No Nose pain, No Nose discharge, No Nose congestion, No Mouth pain, No Mouth swelling, No Throat pain, No Throat swelling, No Other Cardiovascular: No Chest Pain, No Palpitations, No Orthopnea, No Paroxysmal Noc. Dyspnea; Edema; No Lt Headedness; Other (Left arm pain) Respiratory: No Cough, No Dry, No Shortness of breath, No SOB with excertion, No Wheezing, No Hemoptysis, No Pleuritic Pain, No Sputum, No Other Gastrointestinal: No Nausea, No Vomiting, No Abdominal Pain, No Diarrhea, No Constipation, No Melena, No Hematochezia, No Other Genitourinary: No Dysuria, No Frequency, No Incontinence, No Hematuria, No Retention, No Other Musculoskeletal: No other, No neck pain, No shoulder pain, No arm pain; back pain; No hand pain, No leg pain, No foot pain Skin: No Rash, No Lesions, No Jaundice, No Bruising, No Other Objective Vitals Vital Signs Date Time Temp Pulse Resp B/P (MAP) Pulse Ox O2 Delivery O2 Flow Rate FiO2 09/22/24 17:00 98.3 78 20 164/89 (114) 99 98.3 09/22/24 08:00 Room Air* 0 21 Intake/Output Intake and Output 09/22/24 07:00 Intake Total 1240 ml Output Total 1800 ml Balance -560 ml Intake Oral 1240 ml Output Urine Total 1800 ml Medications Current Medications Medications Dose Ordered Sig/Tai Route Start Time Stop Time Status Last Admin Dose Admin Aspirin 81 mg DAILY PO 09/19/24 10:00 09/22/24 12:47 81 MG Clopidogrel Bisulfate 75 mg DAILY PO 09/19/24 10:00 Atorvastatin Calcium 20 mg HS PO 09/18/24 22:00 09/21/24 21:27 20 MG Hydralazine HCl 10 mg Q6HP PRN IV 09/18/24 19:30 09/21/24 17:56 10 MG Metoprolol Tartrate 25 mg BID PO 09/18/24 22:00 09/22/24 12:48 25 MG Diagnostic Test (Pha) 1 strip ACHS 09/18/24 22:00 09/22/24 17:12 1 STRIP Insulin Human Regular ACHS SC 09/18/24 22:00 09/22/24 17:12 3 UNITS Dextrose 50 ml UD PRN IV 09/18/24 19:30 Sodium Chloride 10 ml Q8HR IV 09/18/24 22:00 09/22/24 17:12 10 ML Acetaminophen/ Hydrocodone Bitart 1 tab Q4HP PRN PO 09/18/24 19:30 09/21/24 19:52 1 TAB Ondansetron HCl 4 mg Q4HP PRN IV 09/18/24 19:30 Docusate Sodium 100 mg BIDPRN PRN PO 09/18/24 19:30 09/21/24 21:27 100 MG Acetaminophen 650 mg Q6HP PRN PO 09/18/24 19:30 Nitroglycerin 0.4 mg Q5MINP PRN SL 09/18/24 21:30 Morphine Sulfate 2 mg Q30M PRN IV 09/18/24 21:30 Sevelamer HCl 2,400 mg TIDWM PO 09/22/24 12:00 09/22/24 17:11 2,400 MG Laboratory Results Laboratory Tests 09/19/24 05:11 09/22/24 05:48 Chemistry Test 09/22/24 05:48 Calcium Level 9.5 mg/dL (8.7-10.4) Urinalysis Test 09/18/24 00:00 Urine Color Light-yellow (Yellow) Urine Clarity Turbid (Clear) H Urine pH 6.0 (5.0-9.0) Urine Specific [place] 1.012 (1.001-1.035) Urine Protein 3+ (Negative) H Urine Ketones Negative (Negative) Urine Blood Trace /uL (Negative) H Urine Nitrite Negative (Negative) Urine Bilirubin Negative (Negative) Urine Urobilinogen Normal mg/dL (Negative) Urine Leukocyte Esterase Negative /uL (Negative) Urine RBC 1 /hpf (0 - 3) Urine WBC 4 /hpf (0 - 3) Urine Squamous Epithelial Cells Few /hpf (<5) Urine Bacteria Few /hpf (None Seen) H Urine Hyaline Casts Few /lpf (0 - 2) Urine Mucus Few (None Seen) Urine Glucose 2+ mg/dL (Normal) H Assessment/Plan Assessment/Plan The patient is a 53-year-old male with past medical history of CVA, DM, hyperlipidemia, [place], and hypertension who presented to [facility] ED with complaint of generalized weakness. Patient reports symptoms progressively get worse with unsteady get, associated headache, feeling left arm/shoulder, back, and bilateral foot pain, facial numbness, edema, getting worse that prompted this visit. Patient was seen and evaluated in the ED, laboratory data shows WBC 8.8, hemoglobin 10.2, hematocrit 30.3, platelets 359, sodium 137, potassium 4.9, BUN 72, creatinine 6.55, GFR nine, glucose 167, troponin 131, lipase 48, blood pressure 139/82, heart rate 82, temperature 98.0 F, O2 saturation 95% on room air. Please see medication orders section in the computer. On my assessment, patient denies chest pain, no headache, no dizziness, no shortness of breath, no nausea, no vomiting, no fever, no chills. Patient was admitted for further evaluation and medical management. Acute renal failure on CKD Left-sided weakness Elevated troponin Diabetes mellitus with hyperglycemia cardiorenal syndrome b/l leg edema 09/19/2024: to be evaluated by nephro for possible HD. Nephro started on Bumex drip 09/20/2024: adding metolazone, on drip. per Nephro, continue on drip. when off the drip and pt is not initiated on HD, d/c, otherwise, pt is CkD stage 5 and can benefit from HD if high risk for re-admission/worsening renal fx 09/21/2024: nephro to start on HD. discussed with pt, pt to have catheter placed 09/22/2024: pt receiving HD during round. psych social worker requested to place pt for chair time Plan discussed with: Patient My Orders Orders - ILYA DAY DO Procedure Category Date Status Time * Divemaster CONS 09/22/24 Transmitted Consult Date of Service: Sep 22, 2024 Billing Provider: ILYA DAY DO Common Visit Codes: [id number] INP/OBS CARE(HIGH) ILYA DAY DO Sep 22, 2024 20:23
[2024-09-22] MEDS: EPOETIN ALFA-EPBX 10,000 UNIT/1ML VIAL SC ONE (22:14)
[2024-09-23] VITALS (10 sets, daily range): BP systolic 137–165; BP diastolic 63–84; PULSE 73–82; RESP 15–18; TEMP 98.5–99.3; O2SAT 95–98
[2024-09-23 06:48] LABS: Anion Gap 7 (5-15); Chloride 100 mmol/L (98-107); Potassium 3.5 mmol/L (3.5-5.1); Sodium 138 mmol/L (136-145)
[2024-09-23 06:49] LABS: Calcium 9.2 mg/dL (8.7-10.4)
[2024-09-23 06:54] LABS: BUN/Creatinine Ratio 8.9 (10.0-20.0); Glucose 104 mg/dL (74-106)
[2024-09-23 07:04] LABS: Blood Urea Nitrogen 45 mg/dL (9-23); Carbon Dioxide 31 mmol/L (20-31)
[2024-09-23 10:54] LABS: Creatinine, Urine 52.24 mg/dL (30.0-125.0)
[2024-09-23 10:57] LABS: Urine Protein/Creatinine Ratio 6.15
[2024-09-23 10:58] LABS: Protein, Urine 321.3 mg/dL (1-14)
--- NOTE | 2024-09-23 12:19 | DVHPN2 ---
Progress Note Date Seen: Sep 23, 2024 Medical Necessity Reason Pt with a Central, PICC or Fol: No Subjective Patient reports: No new complaints Other Systems: Patient seen and examined by myself today in follow-up Objective vital signs Vital Sign Date Time Temp Pulse Resp B/P (MAP) Pulse Ox O2 Delivery O2 Flow Rate FiO2 09/23/24 11:38 165/84 09/23/24 10:20 79 09/23/24 08:30 99.3 15 96 99.3 09/23/24 08:00 Room Air* 0 21 Total Intake and Output 09/22/24 09/22/24 09/23/24 15:00 23:00 07:00 Intake Total 200 ml 584 ml 250 ml Output Total 700 ml Balance 200 ml -116 ml 250 ml medications Current Medications Medications Dose Ordered Sig/Tai Route Start Time Stop Time Status Last Admin Dose Admin Aspirin 81 mg DAILY PO 09/19/24 10:00 09/23/24 08:41 81 MG Clopidogrel Bisulfate 75 mg DAILY PO 09/19/24 10:00 Atorvastatin Calcium 20 mg HS PO 09/18/24 22:00 09/21/24 21:27 20 MG Hydralazine HCl 10 mg Q6HP PRN IV 09/18/24 19:30 09/23/24 11:38 10 MG Metoprolol Tartrate 25 mg BID PO 09/18/24 22:00 09/23/24 08:41 25 MG Diagnostic Test (Pha) 1 strip ACHS 09/18/24 22:00 09/23/24 11:28 1 STRIP Insulin Human Regular ACHS SC 09/18/24 22:00 09/23/24 11:29 4 UNITS Dextrose 50 ml UD PRN IV 09/18/24 19:30 Sodium Chloride 10 ml Q8HR IV 09/18/24 22:00 09/23/24 06:01 10 ML Acetaminophen/ Hydrocodone Bitart 1 tab Q4HP PRN PO 09/18/24 19:30 09/21/24 19:52 1 TAB Ondansetron HCl 4 mg Q4HP PRN IV 09/18/24 19:30 Docusate Sodium 100 mg BIDPRN PRN PO 09/18/24 19:30 09/21/24 21:27 100 MG Acetaminophen 650 mg Q6HP PRN PO 09/18/24 19:30 Nitroglycerin 0.4 mg Q5MINP PRN SL 09/18/24 21:30 Morphine Sulfate 2 mg Q30M PRN IV 09/18/24 21:30 Sevelamer HCl 2,400 mg TIDWM PO 09/22/24 12:00 09/23/24 11:38 2,400 MG laboratory and microbiology Laboratory Tests 09/23/24 06:11 09/22/24 05:48 09/19/24 05:11 Test 09/23/24 06:11 Range/Units Serum Glucose 104 74-106 mg/dL Problem List/Assessment/Plan Problem List/Assessment/Plan Chronic Kidney Disease stage 5 secondary diabetic nephropathy now end-stage renal disease requiring hemodialysis 3 times a weekly Hypertension Diabetes mellitus type 2 Congestive heart failure, ejection fraction 40% Anemia of chronic kidney disease Recommendations Hemodialysis tomorrow Epogen [id number] IV post hemodialysis Social service consult for outpatient hemodialysis chair time Renal diet Blood pressure control Hold Bumex drip We will continue to follow up Plan discussed with: Patient, Spouse LEILA SWARTZ MD Sep 23, 2024 12:19
--- NOTE | 2024-09-23 14:19 | DVHPN2 ---
Reviewed: Care Plan, H&P, Labs, Medications, Radiology Changes from previous H/P or p: No Changes General: Per HPI Eyes: No Pain, No Vision change, No Conjunctivae inflammation, No Eyelid inflammation, No Other, No Redness ENT: No Ear pain, No Ear discharge, No Nose pain, No Nose discharge, No Nose congestion, No Mouth pain, No Mouth swelling, No Throat pain, No Throat swelling, No Other Cardiovascular: No Chest Pain, No Palpitations, No Orthopnea, No Paroxysmal Noc. Dyspnea; Edema; No Lt Headedness; Other (Left arm pain) Respiratory: No Cough, No Dry, No Shortness of breath, No SOB with excertion, No Wheezing, No Hemoptysis, No Pleuritic Pain, No Sputum, No Other Gastrointestinal: No Nausea, No Vomiting, No Abdominal Pain, No Diarrhea, No Constipation, No Melena, No Hematochezia, No Other Genitourinary: No Dysuria, No Frequency, No Incontinence, No Hematuria, No Retention, No Other Musculoskeletal: No other, No neck pain, No shoulder pain, No arm pain; back pain; No hand pain, No leg pain, No foot pain Skin: No Rash, No Lesions, No Jaundice, No Bruising, No Other Objective Vitals Vital Signs Date Time Temp Pulse Resp B/P (MAP) Pulse Ox O2 Delivery O2 Flow Rate FiO2 09/23/24 12:28 98.6 76 15 165/84 (111) 97 98.6 09/23/24 08:00 Room Air* 0 21 Intake/Output Intake and Output 09/23/24 07:00 Intake Total 1034 ml Output Total 700 ml Balance 334 ml Intake Oral 970 ml IV Total 64 ml Output Urine Total 700 ml # Voids 5 # Bowel Movements 1 General Appearance: Alert, Oriented X3 Lungs: Clear to auscultation Cardiovascular: Regular rate, Normal S1, Normal S2 Abdomen: Normal bowel sounds Medications Current Medications Medications Dose Ordered Sig/Tai Route Start Time Stop Time Status Last Admin Dose Admin Aspirin 81 mg DAILY PO 09/19/24 10:00 09/23/24 08:41 81 MG Clopidogrel Bisulfate 75 mg DAILY PO 09/19/24 10:00 Atorvastatin Calcium 20 mg HS PO 09/18/24 22:00 09/21/24 21:27 20 MG Hydralazine HCl 10 mg Q6HP PRN IV 09/18/24 19:30 09/23/24 11:38 10 MG Metoprolol Tartrate 25 mg BID PO 09/18/24 22:00 09/23/24 08:41 25 MG Diagnostic Test (Pha) 1 strip ACHS 09/18/24 22:00 09/23/24 11:28 1 STRIP Insulin Human Regular ACHS SC 09/18/24 22:00 09/23/24 11:29 4 UNITS Dextrose 50 ml UD PRN IV 09/18/24 19:30 Sodium Chloride 10 ml Q8HR IV 09/18/24 22:00 09/23/24 06:01 10 ML Acetaminophen/ Hydrocodone Bitart 1 tab Q4HP PRN PO 09/18/24 19:30 09/21/24 19:52 1 TAB Ondansetron HCl 4 mg Q4HP PRN IV 09/18/24 19:30 Docusate Sodium 100 mg BIDPRN PRN PO 09/18/24 19:30 09/21/24 21:27 100 MG Acetaminophen 650 mg Q6HP PRN PO 09/18/24 19:30 Nitroglycerin 0.4 mg Q5MINP PRN SL 09/18/24 21:30 Morphine Sulfate 2 mg Q30M PRN IV 09/18/24 21:30 Sevelamer HCl 2,400 mg TIDWM PO 09/22/24 12:00 09/23/24 11:38 2,400 MG Laboratory Results Laboratory Tests 09/19/24 05:11 09/22/24 05:48 09/23/24 06:11 Chemistry Test 09/23/24 06:11 Calcium Level 9.2 mg/dL (8.7-10.4) Urinalysis Test 09/18/24 00:00 09/23/24 10:14 Urine Color Light-yellow (Yellow) Urine Clarity Turbid (Clear) H Urine pH 6.0 (5.0-9.0) Urine Specific [place] 1.012 (1.001-1.035) Urine Protein 3+ (Negative) H Urine Ketones Negative (Negative) Urine Blood Trace /uL (Negative) H Urine Nitrite Negative (Negative) Urine Bilirubin Negative (Negative) Urine Urobilinogen Normal mg/dL (Negative) Urine Leukocyte Esterase Negative /uL (Negative) Urine RBC 1 /hpf (0 - 3) Urine WBC 4 /hpf (0 - 3) Urine Squamous Epithelial Cells Few /hpf (<5) Urine Bacteria Few /hpf (None Seen) H Urine Hyaline Casts Few /lpf (0 - 2) Urine Mucus Few (None Seen) Urine Glucose 2+ mg/dL (Normal) H Urine Creatinine 52.24 mg/dL (30.0-125.0) Urine Protein/Creatinine Ratio 6.15 Urine Sodium 113 mmol/L (40-220) Urine Total Protein 321.3 mg/dL (1-14) H Labs and/or images reviewed: Labs reviewed by me, Image(s) reviewed by me Assessment/Plan Assessment/Plan The patient is a 53-year-old male with past medical history of CVA, DM, hyperlipidemia, PR, and hypertension who presented to [facility] ED with complaint of generalized weakness. Patient reports symptoms progressively get worse with unsteady get, associated headache, feeling left arm/shoulder, back, and bilateral foot pain, facial numbness, edema, getting worse that prompted this visit. Patient was seen and evaluated in the ED, laboratory data shows WBC 8.8, hemoglobin 10.2, hematocrit 30.3, platelets 359, sodium 137, potassium 4.9, BUN 72, creatinine 6.55, GFR nine, glucose 167, troponin 131, lipase 48, blood pressure 139/82, heart rate 82, temperature 98.0 F, O2 saturation 95% on room air. Please see medication orders section in the computer. On my assessment, patient denies chest pain, no headache, no dizziness, no shortness of breath, no nausea, no vomiting, no fever, no chills. Patient was admitted for further evaluation and medical management. Acute renal failure on CKD Left-sided weakness Elevated troponin Diabetes mellitus with hyperglycemia cardiorenal syndrome b/l leg edema 09/19/2024: to be evaluated by nephro for possible HD. Nephro started on Bumex drip 09/20/2024: adding metolazone, on drip. per Nephro, continue on drip. when off the drip and pt is not initiated on HD, d/c, otherwise, pt is CkD stage 5 and can benefit from HD if high risk for re-admission/worsening renal fx 09/21/2024: nephro to start on HD. discussed with pt, pt to have catheter placed 09/22/2024: pt receiving HD during round. manager social work requested to place pt for chair time 09/23/2024: pt to have HD today and possibly again tomorrow Plan discussed with: Patient My Orders Orders - ILYA DAY DO Procedure Category Date Status Time Quantiferon-Tb Gold LAB 09/23/24 In Process 04:00 Hepatitis C Antibody LAB 09/23/24 In Process 04:00 Date of Service: Sep 23, 2024 Billing Provider: ILYA DAY DO Common Visit Codes: [id number] INP/OBS CARE(HIGH) ILYA DAY DO Sep 23, 2024 14:19
[2024-09-24] VITALS (8 sets, daily range): BP systolic 140–175; BP diastolic 77–92; PULSE 70–83; RESP 16–19; TEMP 96.9–98.8; O2SAT 96–98
[2024-09-24] MEDS ORDERED: SODIUM CHL 0.9% 1000 ML BAG XX ONE (07:00)
[2024-09-24 08:44] LABS: Anion Gap 9 (5-15); Carbon Dioxide 29 mmol/L (20-31); Sodium 136 mmol/L (136-145)
[2024-09-24 08:45] LABS: Chloride 98 mmol/L (98-107); Potassium 3.4 mmol/L (3.5-5.1)
[2024-09-24 08:50] LABS: BUN/Creatinine Ratio 9.1 (10.0-20.0); Glucose 93 mg/dL (74-106)
[2024-09-24 08:52] LABS: Blood Urea Nitrogen 49 mg/dL (9-23)
--- NOTE | 2024-09-24 14:03 | DVHPN2 ---
Progress Note Date Seen: Sep 24, 2024 Has the PT tested + for MRSA If YES, has PT been informed?: No Medical Necessity Reason Pt with a Central, PICC or Fol: No Objective vital signs Vital Sign Date Time Temp Pulse Resp B/P (MAP) Pulse Ox O2 Delivery O2 Flow Rate FiO2 09/24/24 13:00 98.8 74 16 140/79 (99) 96 98.8 09/24/24 08:00 Room Air* 0 21 Total Intake and Output 09/23/24 09/23/24 09/24/24 15:00 23:00 07:00 Intake Total 600 ml Balance 600 ml medications Current Medications Medications Dose Ordered Sig/Tai Route Start Time Stop Time Status Last Admin Dose Admin Aspirin 81 mg DAILY PO 09/19/24 10:00 09/24/24 08:21 81 MG Clopidogrel Bisulfate 75 mg DAILY PO 09/19/24 10:00 Atorvastatin Calcium 20 mg HS PO 09/18/24 22:00 09/21/24 21:27 20 MG Hydralazine HCl 10 mg Q6HP PRN IV 09/18/24 19:30 09/23/24 11:38 10 MG Metoprolol Tartrate 25 mg BID PO 09/18/24 22:00 09/24/24 08:22 25 MG Diagnostic Test (Pha) 1 strip ACHS 09/18/24 22:00 09/24/24 11:17 1 STRIP Insulin Human Regular ACHS SC 09/18/24 22:00 09/24/24 11:18 2 UNITS Dextrose 50 ml UD PRN IV 09/18/24 19:30 Sodium Chloride 10 ml Q8HR IV 09/18/24 22:00 09/24/24 06:00 10 ML Acetaminophen/ Hydrocodone Bitart 1 tab Q4HP PRN PO 09/18/24 19:30 09/21/24 19:52 1 TAB Ondansetron HCl 4 mg Q4HP PRN IV 09/18/24 19:30 Docusate Sodium 100 mg BIDPRN PRN PO 09/18/24 19:30 09/23/24 16:25 100 MG Acetaminophen 650 mg Q6HP PRN PO 09/18/24 19:30 Nitroglycerin 0.4 mg Q5MINP PRN SL 09/18/24 21:30 Morphine Sulfate 2 mg Q30M PRN IV 09/18/24 21:30 Sevelamer HCl 2,400 mg TIDWM PO 09/22/24 12:00 09/24/24 12:18 2,400 MG laboratory and microbiology Laboratory Tests 09/24/24 07:07 09/22/24 05:48 09/19/24 05:11 Test 09/24/24 07:07 Range/Units Serum Glucose 93 74-106 mg/dL Problem List/Assessment/Plan Problem List/Assessment/Plan Chronic Kidney Disease stage 5 secondary diabetic nephropathy now end-stage renal disease requiring hemodialysis 3 times a weekly Hypertension Diabetes mellitus type 2 Congestive heart failure, ejection fraction 40% Anemia of chronic kidney disease Recommendations Continue with UF 2-3 L as tolerated Epogen 57420 IV post hemodialysis Social service consult for outpatient hemodialysis chair time Renal diet Blood pressure control Hold Bumex drip We will continue to follow up Plan discussed with: Patient LEILA SWARTZ MD Sep 24, 2024 14:03
--- NOTE | 2024-09-24 15:04 | DVHDS2 ---
Discharge Summary Date of Admission Sep 18, 2024 at 21:18 Date of Discharge: Sep 24, 2024 Labs/Diagnostic Data: Laboratory Results Test 09/24/24 11:07 09/24/24 07:07 09/23/24 10:14 09/23/24 09:32 POC Glucose 156 mg/dl (70-106) Sodium Level 136 mmol/L (136-145) Potassium Level 3.4 mmol/L (3.5-5.1) Chloride Level 98 mmol/L (98-107) Carbon Dioxide Level 29 mmol/L (20-31) Anion Gap 9 (5-15) Blood Urea Nitrogen 49 mg/dL (9-23) Creatinine 5.37 mg/dL (0.700-1.30) Glomerular Filtration Rate Calc 12 mL/min (>90) BUN/Creatinine Ratio 9.1 (10.0-20.0) Serum Glucose 93 mg/dL (74-106) Calcium Level 9.0 mg/dL (8.7-10.4) Urine Creatinine 52.24 mg/dL (30.0-125.0) Urine Protein/Creatinine Ratio 6.15 Urine Sodium 113 mmol/L (40-220) Urine Total Protein 321.3 mg/dL (1-14) Test 09/23/24 06:11 09/22/24 05:48 09/21/24 15:09 09/21/24 05:49 Hepatitis C Antibody Negative (Negative) Hemoglobin 10.3 g/dL (13.5-17.5) Hematocrit 30.4 % (41.0-53.0) Prothrombin Time 10.5 sec (9.3-11.8) Prothrombin Time INR 0.99 (0.9-1.15) Activated Partial Thromboplast Time 27.3 SEC (24.5-34.5) Phosphorus Level 7.5 mg/dL (2.4-5.1) Magnesium Level 2.1 mg/dL (1.6-2.6) Vitamin D 25-Hydroxy 36.4 ng/mL (30.0-100) Parathyroid Hormone (Intact) 178.9 pg/mL (18.4-80.1) Hepatitis A IgM Antibody Negative Hepatitis B Surface Antigen Negative (Negative) Hepatitis B Core IgM Antibody Negative (Negative) Test 09/20/24 11:45 09/19/24 05:11 09/18/24 13:23 09/18/24 00:00 Influenza Type A Antigen Negative (Negative) Influenza Type B Antigen Negative (Negative) SARS-CoV-2 Antigen (Rapid) Negative (NEGATIVE) White Blood Count 10.4 10^3/uL (4.4-10.8) Red Blood Count 3.20 10^6/uL (4.5-5.90) Mean Corpuscular Volume 90.1 fL (80.0-100.0) Mean Corpuscular Hemoglobin 30.3 pg (28.0-32.0) Mean Corpuscular Hemoglobin Concent 33.6 g/dL (32.0-36.0) Red Cell Distribution Width 15.0 % (11.8-14.3) Platelet Count 321 10^3/uL (140-450) Mean Platelet Volume 8.2 fL (6.9-10.8) Neutrophils (%) (Auto) 62.0 % (37.0-80.0) Lymphocytes (%) (Auto) 20.0 % (10.0-50.0) Monocytes (%) (Auto) 10.8 % (0.0-12.0) Eosinophils (%) (Auto) 6.0 % (0.0-7.0) Basophils (%) (Auto) 1.2 % (0.0-2.0) Neutrophils # (Auto) 6.5 10 ^3/uL (1.6-8.6) Lymphocytes # (Auto) 2.1 10 ^3/uL (0.4-5.4) Monocytes # (Auto) 1.1 10 ^3/uL (0-1.3) Eosinophils # (Auto) 0.6 10 ^3/uL (0-0.8) Basophils # (Auto) 0.1 10 ^3/uL (0-0.2) Nucleated Red Blood Cells 0.0 % Total Bilirubin 0.3 mg/dL (0.2-1.0) Aspartate Amino Transferase (AST) 18 U/L (13-40) Alanine Aminotransferase (ALT) 14 U/L (7-40) Alkaline Phosphatase 72 U/L (46-116) Troponin I High Sensitivity 93 ng/L (</=54) Total Protein 6.2 g/dL (5.7-8.2) Albumin 3.7 g/dL (3.2-4.8) Lactic Acid Level 1.0 mmol/L (0.4-2.0) Direct Bilirubin 0.1 mg/dL (<0.3) Lipase 48 U/L (12-53) Urine Color Light-yellow (Yellow) Urine Clarity Turbid (Clear) Urine pH 6.0 (5.0-9.0) Urine Specific [place] 1.012 (1.001-1.035) Urine Protein 3+ (Negative) Urine Ketones Negative (Negative) Urine Blood Trace /uL (Negative) Urine Nitrite Negative (Negative) Urine Bilirubin Negative (Negative) Urine Urobilinogen Normal mg/dL (Negative) Urine Leukocyte Esterase Negative /uL (Negative) Urine RBC 1 /hpf (0 - 3) Urine WBC 4 /hpf (0 - 3) Urine Squamous Epithelial Cells Few /hpf (<5) Urine Bacteria Few /hpf (None Seen) Urine Hyaline Casts Few /lpf (0 - 2) Urine Mucus Few (None Seen) Urine Glucose 2+ mg/dL (Normal) Other Laboratory Tests 09/24/24 07:07 09/22/24 05:48 09/19/24 05:11 Brief Hx & Hospital Course: Acute renal failure on CKD 5, now requiring HD fluid overload azotemia Left-sided weakness Elevated troponin Diabetes mellitus with hyperglycemia Discharge Disposition: Home Discharge Statement: "Patient was advised to return to the ER or call 911 if any headaches, dizziness, shortness of breath, chest pain, abdominal pain, bleeding, fevers, or worsening of medical condition. Patient was counseled about treatment plan, medications, possible side effects, patientverbalized understanding. All questions were answered to the best of my ability. This discharge took greater then 30 minutes in planning, reviewing documentation, counseling the patient, and discussing with other team members." ASSESSMENT ASSESSMENT Assessment Date of Service: Sep 24, 2024 Billing Provider: ILYA DAY DO Common Visit Codes: [id number] DISCH DAY >30min ILYA DAY DO Sep 24, 2024 15:04
[2024-09-24] MEDS ORDERED: SEVE800T7 PO (15:07)
[2024-09-24] MEDS ORDERED: MET25T PO (15:07)
[2024-09-24] MEDS ORDERED: EPOETIN ALFA-EPBX 10,000 UNIT/1ML VIAL SC ONE (21:00)
[2024-09-25 15:06] LABS: QuantiFERON-TB Gold Plus Negative (Negative)
== END 2024-09-24 18:55 | disposition home or self-care (01) | DRG 194 ==
LOC: ER 12:13 → TELE 21:18 → TELE-EAST 09-19 16:39
PROVIDERS: ADMIT Internal Medicine; ATTEND Internal Medicine
PROC: 5A1D70Z Performance of Urinary Filtration, Intermittent, Less than 6 Hours Per Day (ICD-10-PCS; principal; 2024-09-22)
PROC: 0JH63XZ Insertion of Tunneled Vascular Access Device into Chest Subcutaneous Tissue and Fascia, Percutaneous Approach (ICD-10-PCS; 2024-09-22)
PROC: 02H633Z Insertion of Infusion Device into Right Atrium, Percutaneous Approach (ICD-10-PCS; 2024-09-22)
PROC: B5181ZA Fluoroscopy of Superior Vena Cava using Low Osmolar Contrast, Guidance (ICD-10-PCS; 2024-09-22)
PROC: B548ZZA Ultrasonography of Superior Vena Cava, Guidance (ICD-10-PCS; 2024-09-22)
PROC: 5A1D70Z Performance of Urinary Filtration, Intermittent, Less than 6 Hours Per Day (ICD-10-PCS; 2024-09-24)
DX: I13.2 Hypertensive heart and chronic kidney disease with heart failure and with stage 5 chronic kidney disease, or end stage renal disease (principal); N17.9 Acute kidney failure, unspecified; D63.1 Anemia in chronic kidney disease; I50.21 Acute systolic (congestive) heart failure; E11.22 Type 2 diabetes mellitus with diabetic chronic kidney disease; Z20.822 Contact with and (suspected) exposure to COVID-19; E11.65 Type 2 diabetes mellitus with hyperglycemia; M79.671 Pain in right foot; M79.672 Pain in left foot; N18.6 End stage renal disease; E78.5 Hyperlipidemia, unspecified; I25.10 Atherosclerotic heart disease of native coronary artery without angina pectoris; Z99.2 Dependence on renal dialysis; Z86.73 Personal history of transient ischemic attack (TIA), and cerebral infarction without residual deficits; Z83.3 Family history of diabetes mellitus; Z82.49 Family history of ischemic heart disease and other diseases of the circulatory system; Z95.5 Presence of coronary angioplasty implant and graft; I25.2 Old myocardial infarction; Z81.8 Family history of other mental and behavioral disorders; Z82.0 Family history of epilepsy and other diseases of the nervous system
CPT/HCPCS: 36415; 70450; 71045; 76937; 80048; 80053; 80074; 80076; 81001; 82306; 82570; 82962; 83605; 83690; 83735; 83970; 84100; 84156; 84300; 84484; 85014; 85018; 85025; 85610; 85730; 86803; 87340; 87426; 87804; 90935; 93005; 99152; C1894; G0378; J1642; J1815; J2003; J2250

== ENCOUNTER 2025-06-16 08:56 | Emergency (ER) | payer MEDICARE, MEDICAID ==
[~2025-06-16] VITALS: Ht 175.3 cm; Wt 77.3 kg
[~2025-06-16 08:56] MED LIST changes: +MET25T PO; +SEVE800T7 PO
[2025-06-16 08:58] VITALS: BP 132/85; PULSE 61; RESP 18; TEMP 97.4; O2SAT 100
--- NOTE | 2025-06-16 09:39 | ED.PDOC ---
History of Present Illness HPI Comments 54-year-old male presents to the ER with prior medical history of CVA, diabetes, high lipids, hypertension, mi, ESRD(every day): Surgical history of PTCA and a chief complaint of abdominal pain. Patient reports on having a sudden onset of upper abdominal pain associated with shortness of breath, this morning. Denies any other symptoms at this time. Denies chills, fever, N/V/D, SOB, CP. No other associated symptoms, modifiers, recent injuries or sick contacts present at this time. Chief Complaint: Abdominal Pain Time Seen by MD: 09:35 Primary Care Provider: Soni Reviewed Notes: Nurses Notes, Medications, Allergies Allergies: Coded Allergies: NO KNOWN ALLERGIES (Unverified , 04/30/16) Home Meds Active Scripts Metoprolol Tartrate (Lopressor) 25 Mg Tb, 25 MG PO BID for 30 Days, #60 TAB 3 Refills Prov:ILYA DAY DO 09/24/24 Sevelamer Hydrochloride (Renagel) 800 Mg Tab, 2400 MG PO TIDWM for 30 Days, #270 TAB 4 Refills Prov:ILYA DAY DO 09/24/24 Hctz (Hydrochlorothiazide) 25 Mg Tab, 12.5 MG PO BID for 30 Days, #30 TAB Prov:FLAVIO CORONA 09/15/24 Metoprolol Succinate (Metoprolol Succinate Er) 50 Mg Tab, 2 TAB PO DAILY for 30 Days, #60 TAB 5 Refills Prov:FLAVIO CORONA 09/15/24 Bumetanide (Bumex Tablet) 1 Mg Tab, 2.5 MG PO BID for 30 Days, #150 TAB BLK BX WARNING-CAN LEAD TO PROFOUND DIURESIS WITH FLUID- ELECTROLYTE LOSS Prov:FLAVIO CORONA 09/15/24 Nifedipine (Nifedipine Er) 60 Mg Tab, 1 TAB PO DAILY for 30 Days, #30 TAB Prov:FLAVIO CORONA 09/15/24 Atorvastatin Calcium (ATORVASTATIN CALCIUM) 20 Mg Tab, 20 MG PO HS for 30 Days, #30 TAB 3 Refills Prov:ILYA DAY DO 06/20/24 Aspirin (ASPIRIN/ENTERIC) 81 Mg Tab, 81 MG PO DAILY, #90 TAB Prov:JONATHAN ALBERT MD 01/21/23 Reported Medications Dapagliflozin Propanediol (Farxiga) 10 Mg Tab, 1 TAB PO DAILY for 90 Days, #90 09/15/24 Ergocalciferol (Vitamin D (Ergocalciferol) 50,000 Unit Cap, 1 CAP PO QWEEKLY for 28 Days, #4 07/06/24 Albuterol Sulfate (Albuterol Sulfate Hfa) 108 Mcg/Act Aer, 2 PUFF INH TID for 30 Days, #18 INHALE 2 PUFFS 3 TIMES A DAY FOR 5 DAYS. 06/20/24 Metformin Hydrochloride (Metformin Hcl) 850 Mg Tab, 850 MG PO BID for 30 Days, MG 01/15/23 Information Source: Patient Mode of Arrival: Ambulatory Severity: Moderate Timing: Hours Duration: Since onset, Hours Prehospital treatment: None Past Medical History PAST MEDICAL HISTORY: CVA, DM, ESRD, High Lipids, HTN, [place] Surgical History: PTCA Family History Family History: Reviewed,noncontributory to illness, Unknown Social History Smoker: Non-Smoker Alcohol: Occasionally Drugs: Denies Drug Use Lives In: Home Constitutional: denies: chills, diaphoresis, fatigue, fever, malaise, sweats, weakness, others EENTM: denies: blurred vision, double vision, ear bleeding, ear discharge, ear drainage, ear pain, ear ringing, eye pain, eye redness, hearing loss, mouth pain, mouth swelling, nasal discharge, nose bleeding, nose congestion, nose pain, photophobia, tearing, throat pain, throat swelling, voice changes, others Respiratory: denies: cough, hemoptysis, orthopnea, SOB at rest, shortness of breath, SOB with excertion, stridor, wheezing, others Cardiovascular: denies: chest pain, dizzy spells, diaphoresis, Dyspnea on exertion, edema, irregular heart beat, left arm pain, lightheadedness, palpitations, PND, syncope, others Gastrointestinal: reports: abdominal pain; denies: abdomen distended, blood streaked bowels, constipated, diarrhea, dysphagia, difficulty swallowing, hematemesis, melena, nausea, poor appetite, poor fluid intake, rectal bleeding, rectal pain, vomiting, others Genitourinary: denies: burning, dysuria, flank pain, frequency, hematuria, incontinence, penile discharge, penile sore, pain, testicle pain, testicle swelling, urgency, others Neurological: denies: dizziness, fainting, headache, left sided numbness, left sided weakness, numbness, paresthesia, pre-existing deficit, right sided numbness, right sided weakness, seizure, speech problems, tingling, tremors, weakness, others Musculoskeletal: denies: back pain, gout, joint pain, joint swelling, muscle pain, muscle stiffness, neck pain, others Integumetry: denies: bruises, change in color, change in hair/nails, dryness, laceration, lesions, lumps, rash, wounds, others Allergic/Immunocompromised: denies: Difficulty Healing, Frequent Infections, Hives, Itching, others Hematologic/Lymphatic: denies: anemia, blood clots, easy bleeding, easy bruising, swollen glands, others Endocrine: denies: excessive hunger, excessive sweating, excessive thirst, excessive urination, flushing, intolerance to cold, intolerance to heat, unexplained weight gain, unexplained weight loss, others Psychiatric: denies: anxiety, bipolar disorder, depression, hopeless, panic disorder, schizophrenia, sleepless, suicidal, others All Other Systems: Reviewed and Negative Physical Exam General Appearance: Moderate Distress, Normal HEENT: Normal ENT Inspection, Pharynx Normal, TMs Normal Neck: Full Range of Motion, Non-Tender, Normal, Normal Inspection Respiratory: Chest Non-Tender, Lungs Clear, No Accessory Muscle Use, No Respiratory Distress, Normal Breath Sounds Cardiovascular: No Edema, No JVD, No Murmur, No Gallop, Normal Peripheral Pulses, Regular Rate/Rhythm Breast Exam: Deferred Gastrointestinal: No Organomegaly, Non Tender, No Pulsatile Mass, Normal Bowel Sounds, Soft Genitalia: Deferred Pelvic: Deferred Rectal: Deferred Extremities: No calf tenderness, Normal capillary refill, Normal inspection, Normal range of motion, Non-tender, No pedal edema Musculoskeletal : Apperance: Normal Neurologic: Alert, band tumbler II-XII nml as Tested, No Motor Deficits, Normal Affect, Normal Mood, No Sensory Deficits Cerebellar Function: Normal Reflexes: Normal Skin: Dry, Normal Color, Warm Peripheral Pulses: 3+ Radial (R), 3+ Radial (L) Lymphatic: No Adenopathy Was a procedure done? Was a procedure done?: No Differential Dx Considerations may include: Anemia Electrolyte imbalance X-Ray, Labs, Meds, VS Vital Signs Date Time Temp Pulse Resp B/P (MAP) Pulse Ox O2 Delivery O2 Flow Rate FiO2 06/16/25 10:55 118/71 06/16/25 08:58 97.4 61 18 132/85 100 97.4 Lab Test 06/16/25 09:34 Range/Units White Blood Count 5.2 4.4-10.8 10^3/uL Red Blood Count 3.55 L 4.5-5.90 10^6/uL Hemoglobin 10.7 L 13.5-17.5 g/dL Hematocrit 32.3 L 41.0-53.0 % Mean Corpuscular Volume 91.0 80.0-100.0 fL Mean Corpuscular Hemoglobin 30.2 28.0-32.0 pg Mean Corpuscular Hemoglobin Concent 33.2 32.0-36.0 g/dL Red Cell Distribution Width 17.2 H 11.8-14.3 % Platelet Count 246 140-450 10^3/uL Mean Platelet Volume 8.1 6.9-10.8 fL Neutrophils (%) (Auto) 46.8 37.0-80.0 % Lymphocytes (%) (Auto) 30.7 10.0-50.0 % Monocytes (%) (Auto) 13.4 H 0.0-12.0 % Eosinophils (%) (Auto) 6.9 0.0-7.0 % Basophils (%) (Auto) 2.2 H 0.0-2.0 % Neutrophils # (Auto) 2.5 1.6-8.6 10 ^3/uL Lymphocytes # (Auto) 1.6 0.4-5.4 10 ^3/uL Monocytes # (Auto) 0.7 0-1.3 10 ^3/uL Eosinophils # (Auto) 0.4 0-0.8 10 ^3/uL Basophils # (Auto) 0.1 0-0.2 10 ^3/uL Nucleated Red Blood Cells 0.0 % Sodium Level 142 136-145 mmol/L Potassium Level 4.6 3.5-5.1 mmol/L Chloride Level 101 98-107 mmol/L Carbon Dioxide Level 28 20-31 mmol/L Anion Gap 13 5-15 Blood Urea Nitrogen 37 H 9-23 mg/dL Creatinine 7.04 H 0.700-1.30 mg/dL Glomerular Filtration Rate Calc 9 >90 mL/min BUN/Creatinine Ratio 5.3 L 10.0-20.0 Serum Glucose 74 74-106 mg/dL Calcium Level 9.3 8.7-10.4 mg/dL Current Medications Medications (Trade) Dose Ordered Sig/Tai Route Start Time Stop Time Status Last Admin Furosemide (Lasix Injection) 40 mg ONCE ONCE IV 06/16/25 09:30 06/16/25 09:31 DC 06/16/25 10:55 Patient alert. Came in because abdominal pain. History of kidney disease pain Vitals stable. Was given Lasix. Potassium within normal limits. Nephrology consultation for dialysis. WBC within normal limits. He does have anemia. Chest x-ray reviewed does show congestion. CT of the abdomen reviewed does not show any acute process other than cystitis. Explained to the patient. Continue monitoring. Time of 1ST Reevaluation: 10:05 Reevaluation 1ST: Unchanged Patient Education/Counseling: Diagnosis, Treatment, Prognosis Family Education/Counseling: No Family Present SEPSIS Sepsis Screen Date sepsis recognized/suspect: Jun 16, 2025 Time Sepsis recognized/suspect: 900 Recent Procedure: No On Antibiotic Therapy: No Respiratory Rate >20: No Heart Rate >90: No Temp<36 C (96.8 F) or >38.3 C: No SBP <90 or MAP <65 mmHG: No New Acute Mental Status Change: No Is the patient on CPAP, BIPAP,: No Physician Orders Ct Ab Pel Wo Con-No Oral Or Iv (06/16/25 09:28) Chest Portable (06/16/25 09:28) Troponin-I Hs (06/16/25 11:44) Vital Signs Date Time Temp Pulse Resp B/P (MAP) Pulse Ox O2 Delivery O2 Flow Rate FiO2 06/16/25 10:55 118/71 06/16/25 08:58 97.4 61 18 132/85 100 97.4 Laboratory Tests Test 06/16/25 09:34 White Blood Count 5.2 10^3/uL (4.4-10.8) Medications Medications Dose Ordered Sig/Tai Route Start Time Stop Time Status Last Admin Dose Admin Furosemide 40 mg ONCE ONCE IV 06/16/25 09:30 06/16/25 09:31 DC 06/16/25 10:55 Departure 1 Departure Time of Disposition: 11:43 Impression: Primary Impression: CHF (congestive heart failure) Qualified Codes: I50.43 - Acute on chronic combined systolic (congestive) and diastolic (congestive) heart failure Additional Impressions: Hyperglycemia due to type 2 diabetes mellitus Qualified Codes: E11.65 - Type 2 diabetes mellitus with hyperglycemia Acute abdominal pain Disposition: ADMITTED INPATIENT Admit to: Med Surg Condition: Guarded Critical Care Note Critical Care Time?: Yes (90 min-critical care time only) Stability Stability form required: No Heart Score Heart Score: Heart Score Response (Comments) Value History Slightly Suspicious 0 EKG Normal 0 Age 45-64 1 Risk Factors >3 or Hx ASHD 2 Troponin N/A 0 Total 3 I personally scribed for ABEL OLIVIA MD ([email or web address]) on 06/16/25 at 09:39. Electronically submitted by Tc Vargas ([email or web address]). ABEL OLIVIA MD Jun 16, 2025 09:39
[2025-06-16 10:02] LABS: Hematocrit 32.3 % (41.0-53.0); Hemoglobin 10.7 g/dL (13.5-17.5); Mean Corpuscular Hemoglobin 30.2 pg (28.0-32.0); Mean Corpuscular Volume 91.0 fL (80.0-100.0); Nucleated Red Blood Cells % 0.0 %
--- NOTE | 2025-06-16 10:08 | DVH ---
XY CHEST PORTABLE, HISTORY: sob COMPARISON: XY CHEST PORTABLE on DOS: 09/18/24, XY CHEST TWO VIEWS ROUTINE on DOS: 09/13/24, XY CHEST P ORTABLE on DOS: 07/04/24 XY CHEST PORTABLE on DOS: 09/18/24, XY CHEST TWO VIEWS ROUTINE on DOS: 09/13/24, XY CHEST PORTABLE on D OS: 07/04/24 TECHNICAL DATA: 1 view of the chest was obtained. FINDINGS: Lines and tubes: Stable TD catheter with tip in RA. Cardiomediastinal silhouette: normal Pulmonary vasculature: Prominent Lung expansion: normal Lung airspace: Right basilar consolidation. Lung interstitium: prominent Pleura: Small right effusion. Pneumothorax: no Bones: Unremarkable Other: no IMPRESSION: Small right effusion. Right basilar consolidation. Pulmonary vascular congestion.
[2025-06-16 10:14] LABS: Chloride 101 mmol/L (98-107); Potassium 4.6 mmol/L (3.5-5.1); Sodium 142 mmol/L (136-145)
[2025-06-16 10:15] LABS: Anion Gap 13 (5-15); Carbon Dioxide 28 mmol/L (20-31)
--- NOTE | 2025-06-16 10:15 | DVH ---
Exam: CT CT AB PEL WO CON-NO ORAL OR IV History: colitis Comparison Study: None Technique: Multidetector spiral CT of the abdomen and pelvis was performed from lung bases to pubic s ymphysis. Imaging was performed without intravenous contrast. Coronal and sagittal multiplanar reform ats were obtained from the axial data set by the technologist. Radiation Dose : 1. Abdomen/Pelvis: CTDIvol 8.83 mGy, DLP 549.1 mGy*cm. Findings: Evaluation of vasculature and solid organs is limited due to lack of intravenous contrast use. Lung Bases: Moderate right and trace left pleural effusion. The heart is nonenlarged. Trace pericard ial effusion. Low-density blood pool relative to the myocardium. Coronary artery calcifications. Liver: The liver is normal in size. No focal lesions. Gallbladder and Biliary Tree: The gallbladder is unremarkable No intrahepatic or extrahepatic biliar y ductal dilatation. Spleen: Unremarkable Pancreas: The pancreas is grossly unremarkable. Adrenal Glands: Unremarkable Kidneys: There are punctate bilateral nonobstructive intrarenal calculi. GI tract: The stomach is grossly normal in appearance. No evidence of small bowel wall thickening or abnormal dilatation to suggest bowel obstruction. The colon is unremarkable. No acute appendicitis. Peritoneum/mesentery/retroperitoneum. No evidence of free intraperitoneal air. No ascites. No evidenc e of suspicious lymphadenopathy. Abdominal Wall: Unremarkable. Vasculature: The visualized abdominal aorta is normal in size and caliber. Evaluation of abdominal a nd pelvic vessels is limited due to lack of intravenous contrast. Urinary Bladder: There is Bladder wall thickening. Pelvic Organs: Unremarkable Musculoskeletal: No aggressive focal bony lesions, acute fractures or dislocation. IMPRESSION: 1. Bladder wall thickening. Correlate for cystitis. 2. Punctate bilateral nonobstructive intrarenal calculi. 3. Moderate right and trace left pleural effusion. 4. Trace pericardial effusion. Coronary artery calcifications. 5. Low-density blood pool relative to the myocardium. Findings may be seen in anemia.
[2025-06-16 10:16] LABS: Calcium 9.3 mg/dL (8.7-10.4)
[2025-06-16 10:20] LABS: BUN/Creatinine Ratio 5.3 (10.0-20.0); Glucose 74 mg/dL (74-106)
[2025-06-16 10:23] LABS: Blood Urea Nitrogen 37 mg/dL (9-23)
[2025-06-16] MEDS: FUROSEMIDE 40 MG/4 ML VIAL IV ONE (10:55)
== END 2025-06-16 15:08 | disposition left against medical advice (07) ==
LOC: ER 08:56
DX: I50.43 Acute on chronic combined systolic (congestive) and diastolic (congestive) heart failure (principal); I13.2 Hypertensive heart and chronic kidney disease with heart failure and with stage 5 chronic kidney disease, or end stage renal disease; I25.10 Atherosclerotic heart disease of native coronary artery without angina pectoris; E11.65 Type 2 diabetes mellitus with hyperglycemia; E11.22 Type 2 diabetes mellitus with diabetic chronic kidney disease; N18.6 End stage renal disease; N20.0 Calculus of kidney; K52.9 Noninfective gastroenteritis and colitis, unspecified; Z86.73 Personal history of transient ischemic attack (TIA), and cerebral infarction without residual deficits; Z98.61 Coronary angioplasty status
CPT/HCPCS: 36415; 71045; 74176; 80048; 84484; 85025; 96374; 99285; J1938